=== PATIENT | male | born 1955 | race African-American/Black ===

== ENCOUNTER 2017-10-02 22:49 | Emergency (ER) | payer MEDICARE, MEDICAID ==
--- NOTE | 2017-10-03 02:14 | ED ---
Head Injury - HPI Summary HPI Summary: Patient complains of left eye swollen shut after fall onto left side face tonight. Patient admits to drinking two 22 ounce bottle of Old [place] malt liquor, does not remember fall very well. Currently alert and oriented, responding appropriately. Denies LANG, vision change, focal deficits, N/V, any other pain or injury. No anti-coag. - History Of Current Complaint Chief Complaint: EDHeadInjury Stated Complaint: FALL/HEAD INJURY Time Seen by Provider: 10/02/17 23:45 Hx Obtained From: Patient Mechanism Of Injury: Fall From A Standing Position Onset/Duration: Started Hours Ago Severity Currently: Mild Severity Initially: Mild Pain Intensity: 2 Pain Scale Used: 0-10 Numeric Location of Head Injury: Frontal Location: Discrete At: Character: Dull - Allergies/Home Medications Allergies/Adverse Reactions: Allergies Allergy/AdvReac Type Severity Reaction Status Date / Time No Known Allergies Allergy Verified 02/15/15 22:53 Home Medications: Home Medications NK [No Home Medications Reported] 10/03/17 [History Confirmed 10/03/17] PMH/Surg Hx/FS Hx/Imm Hx Endocrine/Hematology History: Denies: Hx Anticoagulant Therapy History: Denies: Hx Dialysis Neurological History: Denies: Hx CVA Infectious Disease History: No Infectious Disease History: Denies: Traveled Outside the [place] in Last 30 Days - Social History Alcohol Use: Daily Substance Use Type: Reports: None Hx Tobacco Use: Yes Smoking Status (MU): Heavy Every Day Tobacco Smoker Review of Systems Constitutional: Negative Eyes: Negative ENT: Negative Cardiovascular: Negative Respiratory: Negative Gastrointestinal: Negative Genitourinary: Negative Musculoskeletal: Negative Skin: Negative Neurological: Negative Psychological: Normal All Other Systems Reviewed And Are Negative: Yes Physical Exam - Summary Physical Exam Summary: Periorbital hematoma with left eye swollen shut. When eyelid retracted, EOMs are intact. Denies vision change. Neuro exam normal. Patient alert and oriented, clinically sober. No apparent trauma to mouth or head. Patient flexes and extends bilateral upper extremity is in bilateral lower extremities without any indication of pain. No pain with palpation of the chest or abdomen , back and neck. Triage Information Reviewed: Yes Vital Signs On Initial Exam: Initial Vitals Temp Pulse Resp BP Pulse Ox 99.4 F 82 16 163/98 95 10/02/17 22:50 10/02/17 22:50 10/02/17 22:50 10/02/17 22:50 10/02/17 22:50 Vital Signs Reviewed: Yes Appearance: Positive: Well-Appearing Skin: Positive: Warm Head/Face: Positive: Other Eyes: Positive: EOMI, JOSE ENT: Positive: Normal ENT inspection Neck: Positive: Supple Respiratory/Lung Sounds: Positive: Clear to Auscultation Cardiovascular: Positive: Normal Abdomen Description: Positive: Nontender Musculoskeletal: Positive: Normal Neurological: Positive: Normal Psychiatric: Positive: Normal AVPU Assessment: Alert - [place]z Coma Scale Best Eye Response: 4 - Spontaneous Best Motor Response: 6 - Obeys Commands Best Verbal Response: 5 - Oriented Coma Scale Total: 15 Diagnostics - Vital Signs Vital Signs Temp Pulse Resp BP Pulse Ox 10/02/17 22:50 99.4 F 82 16 163/98 95 - Laboratory Lab Statement: Any lab studies that have been ordered have been reviewed, and results considered in the medical decision making process. - CT brain CT Interpretation: No Acute Changes CT Interpretation Completed By: Radiologist maxillofacial CT Interpretation: No Acute Changes CT Interpretation Completed By: Radiologist Head Injury Course/Dx Course Of Treatment: Patient complains of left eye swollen shut after fall onto left side face tonight. Patient admits to drinking two 22 ounce bottle of Old [place] malt liquor, does not remember fall very well. Currently alert and oriented, responding appropriately. Denies LANG, vision change, focal deficits, N /V, any other pain or injury. No anti-coag. PE: Periorbital hematoma with left eye swollen shut. When eyelid retracted, EOMs are intact. Denies vision change. Neuro exam normal. Patient alert and oriented, clinically sober. No apparent trauma to mouth or head. Patient flexes and extends bilateral upper extremity is in bilateral lower extremities without any indication of pain. No pain with palpation of the chest or abdomen, back and neck. CT brain and maxillofacial negative. Vital signs within normal limits. Currently sober - Diagnoses Provider Diagnoses: Fall Discharge - Sign-Out/Discharge Documenting (check all that apply): Patient Departure - Discharge Plan Condition: Stable Disposition: HOME Patient Education Materials: Head Injury (ED), Fall Prevention (ED) Referrals: No Primary Care Phys,NOPCP [Primary Care Provider] - Additional Instructions: Return to the ED for any new or worsening symptoms - Billing Disposition and Condition Condition: STABLE Disposition: Home
[2017-10-03 02:33] VITALS: BP 146/86
--- NOTE | 2017-10-03 10:30 | RAD ---
Indication: Fall, head injury. CT of the brain was performed without IV contrast. Comparison is made with previous exam dated February 15, 2015. Ventricular structures are midline. No midline shift is noted. There is central and cortical atrophy noted. There is no evidence of intracranial mass or hemorrhage. No other high or low density lesions identified. Mastoid air cells and paranasal sinuses are otherwise unremarkable. Soft tissue swelling is noted over the left orbit with preseptal hematoma. IMPRESSION: No intracranial mass or hemorrhage is noted. Soft tissue hematoma over the left periorbital area and left frontal scalp.
--- NOTE | 2017-10-03 10:35 | RAD ---
Indication: Facial injury after fall, soft tissue swelling over the left frontal bone. CT of the facial bones was obtained in the axial plane. Sagittal and coronal reconstructed images were obtained. The mandible is intact. There is no evidence of fracture. The visualized hyoid bone, thyroid cartilage and cricoid cartilage is grossly unremarkable. The maxilla and nasal spine are intact with no fracture. Zygoma and zygomatic arch demonstrates no fracture. Lamina preparation and lateral wall of the orbits are unremarkable with no fracture. Frontal sinuses and frontal cortex are unremarkable without fracture. There is soft tissue swelling over the left for head extending to the left periorbital area. No intraconal hematoma is noted. The nasal arch is spine are otherwise unremarkable. Mucous retention cyst is noted in the left maxillary sinus. Multiple areas of missing teeth are noted. IMPRESSION: Marked soft tissue swelling over the left frontal area and left periorbital area. No fractures are identified.
== END 2017-10-03 02:31 | disposition home or self-care (01) ==
LOC: ED 22:49
DX: Z91.81 History of falling (principal); R22.0 Localized swelling, mass and lump, head; Z72.89 Other problems related to lifestyle; F17.210 Nicotine dependence, cigarettes, uncomplicated
CPT/HCPCS: 70450; 70486; 99282

== ENCOUNTER 2018-04-02 17:36 | Emergency (ER) | payer MEDICARE, MEDICAID ==
[2018-04-02] MEDS ORDERED: LORazepam INJ* 2 MG/ML 1 ML VIAL IV PUSH ONE (18:46)
[2018-04-02] MEDS ORDERED: Ondansetron INJ* 2 MG/ML VIAL IV ONE (18:46)
[2018-04-02] MEDS ORDERED: Morphine VIAL* 10 MG/ML 1 ML VIAL IV ONE (18:47)
--- NOTE | 2018-04-02 18:50 | ED ---
Abdominal Pain/Male - HPI Summary HPI Summary: A 63 y/o male brought in by [facility] ambulance presents to [facility] with a chief complaint of abdominal pain on 04/02/18. Per triage note, "Sudden onset abdominal pain and n/v x2 hours. Pt states he had one drink today. Pt has large , firm mass to groin area x several months causing a lot of pain today." Per EMS report that patient was "going to a friends house when he suddenly started to not feel well, abdominal pain, nausea. Pt can stand but leaning against police car". The patient states that he was on the way to get something to eat when he lost consciousness. The patient doesn't appear to be a good historian. He is known for EtOH use. He has several abrasions on his face from when he fell a few days ago, stating that he slipped on ice. He thinks he has a hernia and his right testicle is more swollen than his left. He denies fever, chills, erythema (eyes), sore throat, chest pain, shortness of breath, cough, dysuria, hematuria , myalgia, edema, rash and dizziness. At triage he rated his pain as an 10/10 in severity. - History of Current Complaint Chief Complaint: EDAbdPain Stated Complaint: ABD PAIN Time Seen by Provider: 04/02/18 18:34 Hx Obtained From: Patient, EMS Onset/Duration: Sudden Onset, Lasting Hours, Still Present Timing: Constant, Lasting Hours Severity Initially: Severe Severity Currently: Severe Pain Intensity: 10 Pain Scale Used: 0-10 Numeric Location: Diffuse Radiates: No Character: Not Applicable Aggravating Factor(s): Nothing Alleviating Factor(s): Nothing Associated Signs And Symptoms: Positive: Nausea, Vomiting, Other - possible hernia. Negative: Fever - Allergies/Home Medications Allergies/Adverse Reactions: Allergies Allergy/AdvReac Type Severity Reaction Status Date / Time No Known Allergies Allergy Verified 04/02/18 17:41 PMH/Surg Hx/FS Hx/Imm Hx Endocrine/Hematology History: Denies: Hx Anticoagulant Therapy Cardiovascular History: Reports: Hx Coronary Artery Disease, Hx Hypertension History: Denies: Hx Dialysis Neurological History: Denies: Hx CVA Infectious Disease History: No Infectious Disease History: Denies: Traveled Outside the [place] in Last 30 Days - Family History Known Family History: Negative: Cardiac Disease, Hypertension - Social History Alcohol Use: Daily Substance Use Type: Reports: None Hx Tobacco Use: Yes Smoking Status (MU): Heavy Every Day Tobacco Smoker Review of Systems Negative: Fever, Chills Negative: Erythema Negative: Sore Throat Negative: Chest Pain Negative: Shortness Of Breath, Cough Positive: Abdominal Pain, Vomiting, Nausea Positive: pain - testicle pain and swelling. Negative: dysuria, hematuria Negative: Myalgia, Edema Negative: Rash Neurological: Negative - dizziness, Other - Positive: patient reports that he lost consciousness All Other Systems Reviewed And Are Negative: Yes Physical Exam - Summary Physical Exam Summary: Constitutional: Well-developed, Well-nourished, Alert. (-) Distressed Skin: Warm, Dry HENT: Normocephalic; facial abrasions, nystagmus Eyes: Conjunctiva normal Neck: Musculoskeletal ROM normal neck. (-) JVD, (-) Stridor, (-) Tracheal deviation Cardio: Rhythm regular, rate normal, Heart sounds normal; Intact distal pulses; The pedal pulses are 2+ and symmetric. Radial pulses are 2+ and symmetric. (-) Murmur Pulmonary/Chest wall: Effort normal. (-) Respiratory distress, (-) Wheezes, (-) Rales Abd: Large tender yet soft right inguinal hernia, (-) epigastric tenderness, (- ) Distension, (-) Guarding, (-) Rebound Musculoskeletal: (-) Edema Lymph: (-) Cervical adenopathy Neuro: Alert, Oriented x3, speech somewhat slurred Psych: Mood and affect Normal Triage Information Reviewed: Yes Vital Signs On Initial Exam: Initial Vitals Temp Pulse Resp BP Pulse Ox 97.6 F 45 16 114/77 97 04/02/18 17:41 04/02/18 17:41 04/02/18 17:41 04/02/18 17:41 04/02/18 17:41 Vital Signs Reviewed: Yes - [place] Coma Scale Best Eye Response: 4 - Spontaneous Best Motor Response: 6 - Obeys Commands Best Verbal Response: 5 - Oriented Coma Scale Total: 15 Diagnostics - Vital Signs Vital Signs Temp Pulse Resp BP Pulse Ox 04/02/18 17:41 97.6 F 45 16 114/77 97 - Laboratory Result Diagrams: 04/02/18 19:16 04/02/18 19:16 Lab Statement: Any lab studies that have been ordered have been reviewed, and results considered in the medical decision making process. - CT Brain CT Interpretation Completed By: Radiologist Summary of CT Findings: No acute intracranial pathology. ED physician has reviewed this imaging report. Cervical spine CT Interpretation Completed By: Radiologist Summary of CT Findings: No acute cervical spine fracture. ED physician has reviewed this imaging report. - EKG 17:57 Cardiac Rate: Bradycardia - 43 bpm EKG Rhythm: Sinus Bradycardia Summary of EKG Findings: Sinus bradycardia at 43 bpm. No STEMI. Re-Evaluation - Re-Evaluation First Eval Re-Evaluation Time: 20:45 Change: Improved Comment: Pain reduced to 4/10. Hernia reduced somewhat. Given an icepack and put in an elevated position. Second Eval Re-Evaluation Time: 21:35 Change: Improved Comment: Hernia reduced. patient feels better. asking to drink water. Abdominal Pain Fem Course/Dx - Course Course Of Treatment: A 63 y/o male brought in by [facility] ambulance presents to [facility] with a chief complaint of abdominal pain on 04/02/18. The physical exam revealed facial abrasions, speech somewhat slurred, nystagmus, large tender yet soft right inguinal hernia. EKG at 17:57 revealed sinus bradycardia at [address] was negative. Cervical spine CT was negative for fracture. Lab results obtained. Lactic acid of 4.4 and Serum Alcohol of 179 at 19:16. In the ED course the patient was given Zofran IV, Ativan IV and Morphine IV. Upon re-eval Hernia reduced. patient feels better. asking to drink water. Vomiting and AMS likely related to alcohol intoxication. The patient will be discharged. He is agreable with this plan. - Diagnoses Provider Diagnoses: Alcohol dependence, Alcohol intoxication, Right inguinal hernia Discharge - Sign-Out/Discharge Documenting (check all that apply): Patient Departure - DC Patient Received Moderate/Deep Sedation with Procedure: No - Discharge Plan Condition: Stable Disposition: HOME Referrals: Brando Fields MD [Medical Doctor] - (3-5 days) [facility] [Outside] (3-5 days) Additional Instructions: Return to the ED if you experience any new or worsening symptoms. - Attestation Statements Document Initiated by Scribe: Yes Documenting Scribe: Ehsan Medrano Provider For Whom Scribe is Documenting (Include Credential): Khadar Crump MD Scribe Attestation: Ehsan Mckee, scribed for Khadar Crump MD on 04/02/18 at 2153. Status of Scribe Document: Ready
[2018-04-02 19:33] LABS: Hematocrit 42 % (42-52); Mean Corpuscular HGB Conc 34 g/dl (31-36); Mean Corpuscular Hemoglobin 35 pg (27-31); Mean Corpuscular Volume 103 fL (80-94); Red Blood Count 4.06 10^6/ul (4.00-5.40); Red Cell Distribution Width 15 % (10.5-15); White Blood Count 6.7 10^3/ul (3.5-10.8)
[2018-04-02 19:36] LABS: Activated Partial Thrombo Time 27.5 seconds (26.0-36.3); INR 0.94 (0.77-1.02)
[2018-04-02 19:44] LABS: Albumin 3.9 g/dL (3.2-5.2); BUN/Creatinine Ratio 8.4 (8-20); Calcium 10.2 mg/dL (8.6-10.3); EGFR Non-African American 94.2 (>60); Globulin 3.9 g/dL (2-4); Potassium 3.8 mmol/L (3.5-5.0); Total Bilirubin 0.5 mg/dL (0.2-1.0); Total Protein 7.8 g/dL (6.4-8.9)
[2018-04-02 19:57] LABS: ABS Basophils 0.1 10^3/ul (0-0.2); ABS Eosinophils 0 10^3/ul (0-0.6); ABS Lymphocytes 0.6 10^3/ul (1.0-4.8); ABS Monocytes 0.6 10^3/ul (0-0.8); ABS Neutrophils 5.5 10^3/ul (1.5-7.7); ABS Nucleated RBC 0 10^3/ul; Eosinophil % 0.3 %; Lymphocyte % 9.4 %; Nucleated Red Blood Cells % 0.3; Platelet Count 201 10^3/ul (150-450)
[2018-04-02] MEDS ORDERED: NS 0.9% 1000 ML** 1,000 ML IV ONE (20:21)
[2018-04-03 00:15] VITALS: BP 148/80
== END 2018-04-03 | disposition home or self-care (01) ==
LOC: ED 17:36
DX: F10.229 Alcohol dependence with intoxication, unspecified (principal); K40.90 Unilateral inguinal hernia, without obstruction or gangrene, not specified as recurrent; R00.1 Bradycardia, unspecified; R11.2 Nausea with vomiting, unspecified; S00.81XA Abrasion of other part of head, initial encounter; W00.0XXA Fall on same level due to ice and snow, initial encounter; Y92.9 Unspecified place or not applicable; F17.200 Nicotine dependence, unspecified, uncomplicated
CPT/HCPCS: 36415; 70450; 72125; 80053; 80320; 83605; 84484; 85025; 85610; 85730; 87040; 93005; 96374; 96375; 99284; G0480; J2060; J2270; J2405

== ENCOUNTER 2019-03-31 18:25 | Inpatient (IN) | payer MEDICARE, MEDICAID ==
--- OUTSIDE RECORDS SUMMARY | 2019-03-31 18:45 | XMS REPORT | Summary of Care ---
:1955 Author Organization [facility] Address [address] [place] [id number] Care Team Providers Name Role Phone Pcp, No Primary Care Provider Unavailable Reason for Referral Diagnostic Radiology (Routine) Status Reason Specialty Diagnoses / Procedures Referred By Contact Referred To Contact Open Radiology Diagnoses Subdural hematoma SAH (subarachnoid hemorrhage) Samym Valerio Procedures CT Head without Contrast MD Britt [address] [facility] Room [address] [place] [id number] Email: [email or web address] Reason for Visit Reason Comments Head Injury Auth/Cert Status Reason Specialty Diagnoses / Procedures Referred By Contact Referred To Contact Diagnoses Subdural hematoma s/p intoxicated; traumatic frontal lobe head bleed with no visible shift, No offical reads. No complete trauma work up. Subdural hematoma Encounter Details Date Type Department Care Team Description 02/01/2019 - Hospital Encounter 08E SURGICAL ICU Anant Nichole MD [address] [place] [address] [phone] Subdural hematoma (Primary Dx); 02/04/2019 [address] [facility] Zev See MD [address] [place] [address] [phone] Diagnosis unknown; [place], [place] Regi Tamez MD [address] [facility] [address] [place] [address] [phone] SAH (subarachnoid hemorrhage) [id number] Allergies No Known Allergiesdocumented as of this encounter (statuses as of 02/04/2019) Medications Medication Sig Dispensed Refills Start Date End Date Status Acetaminophen 325 MG Take 2 tablets 30 tablet 0 02/04/2019 02/14/2019 Active Oral Tablet by mouth every 6 (six) hours for 10 days amLODIPine Besylate 10 Take 1 tablet by 30 tablet 11 02/05/20192019 Active MG Oral Tablet mouth daily (NORVASC) Folic Acid 1 MG Oral Take 1 tablet by 30 tablet 11 02/05/2019 02/04/2020 Active Tablet (FOLVITE) mouth daily Tab-A-Ryan/Beta Take 1 tablet by 30 tablet 0 02/05/2019 Active Carotene Oral Tablet mouth daily Thiamine HCl 100 MG Take 1 tablet by 30 tablet 11 02/05/2019 02/04/2020 Active Oral Tablet (B-1) mouth daily documented as of this encounter (statuses as of 02/04/2019) Active Problems Problem Noted Date Subdural hematoma 02/02/2019 Fall 02/02/2019 Overview: Fall secondary to acute alcohol intoxication 0.33 Acute pain due to trauma 02/02/2019 Alcohol intoxication 02/02/2019 Overview: 0.33 LIDIA Contusion 02/02/2019 Overview: Frontal hemorrhagic unknown LOC SAH (subarachnoid hemorrhage) 02/02/2019 Overview: Stable,traumatic History of colonic diverticulitis 02/02/2019 Unilateral inguinal hernia 02/02/2019 Overview: Right containing small bowel loop Lesion of liver 02/02/2019 Overview: Lesion anterior aspect of the left hepatic lobe 2.4 x 2.2 cm arterially enhancing OA (osteoarthritis of spine) 02/02/2019 Rib fracture 02/02/2019 Overview: Chronic, right 10th posterior rib Hepatic steatosis 02/02/2019 Atelectasis, bilateral 02/02/2019 Hemivertebra 02/02/2019 Overview: T10 documented as of this encounter (statuses as of 02/04/2019) Social History Tobacco Use Types Packs/Day Years Used Date Unknown If Ever Smoked 0 Alcohol Use Drinks/Week oz/Week Comments Yes unknown amount Sex Assigned at Date Recorded Not on file Job Start Date Occupation Industry Not on file Not on file Not on file Travel History Travel Start Travel End No recent travel history available. documented as of this encounter Last Filed Vital Signs Vital Sign Reading Time Taken Comments Blood Pressure 156/82 02/04/2019 12:24 PM EST Pulse 58 02/04/2019 1:00 PM EST Temperature 36.8 02/04/2019 12:00 PM EST C (98.3 F) Respiratory Rate 19 02/04/2019 1:00 PM EST Oxygen Saturation 98% 02/04/2019 1:00 PM EST Inhaled Oxygen Concentration - - Weight 68 kg (149 lb 14.6 oz) 02/03/2019 6:00 AM EST Height 165.1 cm (5' 5") 02/02/2019 6:55 AM EST Body Mass Index 24.95 02/02/2019 6:55 AM EST documented in this encounter Discharge Summaries Surya Wang MD - 02/04/2019 12:35 PM EST Discharge Summary Patient Jose Martin Guzman Admit Date 02/01/2019 1955 Discharge Date 02/04/[address] Wong Primary Discharge Diagnosis: Fall Secondary Discharge Diagnosis: Fall Subdural hematoma Acute pain due to trauma Alcohol intoxication Contusion SAH (subarachnoid hemorrhage) History of colonic diverticulitis Unilateral inguinal hernia Lesion of liver OA (osteoarthritis of spine) Rib fracture Hepatic steatosis Atelectasis, bilateral Hemivertebra History & Hospital Course Reason for Admission: Fall Brief history and Hospital Course: 64 year old male who presented to [facility] as a level 2 Trauma activation as a transfer from a OSH following an unwitnessed fall in an intoxicated condition, with OSH imaging significant for subdural and subarachnoid hemorrhage. Tetanus vaccine had been provided at the outside facility. The patient had a GCS of 15 on arrival with patent and non-endangered airway, in hemodynamically stable condition. Secondary survey revealed a posterior scalp laceration, edema over the anterior chin with tenderness on palpation and multiple mission teeth. CT Head that was performed upon arrival to [facility] revealed an interval increase of the left frontal hemorrhagic contusion, and an unchanged left frontal subarachnoid and subdural hemorrhage as well as a right frontal hemorrhagic contusion. Further imaging revealed no spinal fractures or acute intraabdominal or intrathoracic injury, was however significant for colonic diverticulosis without radiologic evidence of acute diverticulitis,a right inguinal hernia containing a small bowel loop containing fecal material, and a 2.4x2.2 cm arterially enhancing lesion in the anterior aspect of the left liver. A head CT scan later on 02/02 showed to intracranial hemorrhages to be stable. Neurosurgical consult service recommended no operativeintervention and conservative management with supportive measures. The patient recovered well and was increasingly active tolerating an oral diet well, was however found to have episodes of severe hypertension up to systolic 180s, warranting an order of PRN hydralazine that lowered his systolics until the 140s. Upon discharge, we started the patient on amlodipine 10 mg by mouth daily for blood pressure control. He remained asymptomatic throughout the hypertensive episodes. He also has had intermittent bradycardia, which Cardiology was consulted for. Workup including an EKG and echocardiogram were significant for left axis deviation and mild concentric left ventricular hypertrophy, but no acute changes were observed. The patient did admit excessive alcohol use, which social work has been involved , encouraging the patient to stop drinking and providing him with additional resources. As the patient has recovered well from his fall and there is no role for surgical intervention at this point, we discharge him home today with instructions to follow up on outpatient basis for his intracranial bleed. The patient was also instructed to establish care with a primary care provider including outpatient follow up for his inguinal hernia. Review of systems: Denies nausea, vomiting, abdominal pain, chest pain, shortness of breath. Physical exam: General: NAD, A&Ox3. CV:RRR Pulm: symmetric chest excursion Abdominal: soft, non-tender, non-distended in all four quadrants. There is a sizable, yet reducible right inguinal hernia present that does not show any clinical signs of incarceration. MSK: Extremities warm, well perfused. Consults: Neurosurgery Relevant studies done during this hospitalization include: CT head Laboratory Data (Most Recent in Past 3 Days) Lab 02/02/19 0527 02/03/19 0403 02/04/19 0525 WBC 4.6 5.6 4.9 HGB 12.8* 11.4* 11.1* MCV 93.2 91.6 91.6 PLT 239 237 207 Lab 02/01/19 2328 PROT 7.7 ALBUMIN 3.9 AST 25 ALT 10 TBILI 0.2 ALKPHOS 71 Lab 02/02/19 0527 02/03/19 0403 02/04/19 0525 NA 141 136 137 K 3.5 4.0 3.5 CL 106 104 105 BICARBONATE 19* 22 21* GLUCOSE 71 100 108 BUN 3* 7* 8 CREATININE 0.56* 0.76 0.69* Lab 02/01/19 2328 INR 0.97 Discharge Medications Discharge Medications: Medication List Discharge Medications Sig/Dispense acetaminophen (TYLENOL) tablet 325 MG tablet Si mg, Oral, Every 6 hours Dispense: 30 tablet amlodipine 10 MG tablet Commonly known as: NORVASC Start taking on: February 05, 2019 Si mg, Oral, Daily Standard Dispense: 30 tablet folic acid 1 MG tablet Commonly known as: FOLVITE Start taking on: February 05, 2019 Si mg, Oral, Daily Standard Dispense: 30 tablet multivitamin tablet Start taking on: February 05, 2019 Si tablet, Oral, Daily Standard Dispense: 30 tablet thiamine 100 MG tablet Commonly known as: B-1 Start taking on: February 05, 2019 Si mg, Oral, Daily Standard Dispense: 30 tablet Allergies:Patient has no known allergies. Medications Discontinued: None Medications Added or Modified: Amlodipine Medications, including new medication and medication changes, were discussed with patient and/or family prior to discharge. Follow Up Appointments & Patient Instructions F/u with NSGY Discharge planning was discussed with the patient and/or family. Please see discharge instructions provided to the patient OR After-Visit summary on file for additional information. Discharge Recommendations & Disposition Communication/Instructions to the PCP: No Pending labs/ tests done in hospital and still need to be followed up after discharge: None Follow-up with PCP: To be scheduled by patient Referrals: None Disposition: The patient was hemodynamically stable at the time of discharge. Discharge to: Home Diet: regular diet Activity: activity as tolerated Code Status: Full Code Condition Upon Discharge: Cognitive: Alert and oriented Functional: Independent Social Supports: Family in home The patient was discussed with Dr. Wong, who agrees with the assessment and plan as noted above. Signature:Surya Wang MD Date/Time: February 04, 2019 12:35 PM Associated attestation - Mami Wong MD - 02/04/2019 1:36 PM DESIREE saw and evaluated the patient. Discussed with the resident and agree with the residents findings and plans as written, along with any supplemental dictated and/or attending documentation in the patient record by myself. Mental status continues to improve. Started on amlodipine for HTN. Stable for discharge today. F/U with PCP in the next 1-2 weeks regarding BP control. F/U with NSG in 1 month. Mami Wong MD Trauma and Acute Care Surgery documented in this encounter Progress Notes Carol Ann Kaur RN - 02/04/2019 1:36 PM [id number]: Discharge teaching gone over with patient. Patient has no questions or concerns. IV taken out and patient discharged to discharge center. Regi Newton, OT - 02/04/2019 9:54 AM ESTOccupational Therapy Acute Care Treatment Note Medical Diagnosis: s/p fall on 02/01/19 L frontal SDH and SAH Left frontal hemorrhagic contusion Small hemorrhagic contusion along anterior right frontal lobe +Et OH (0.33) Symptomatic sinus bradycardia with hypotension Prolonged QTC Blurry vision Dizziness Rehabilitation Precautions/Restrictions: Full code High fall risk I-COUGH Protocol OOB ad angelito OOB to chair Per Trauma progress note dated 02/03/19: "Keep SBP 100-140" Goal Review Visit Number: 1 SUBJECTIVE Patient Report: "Hi, Miss" Pain: Patient has no complaints of pain currently. Pain Medication Today: no. OBJECTIVE General Observation: Pt received seated at edge bed in NAD +PIV, +tele, +pulse oximetry. No bed alarm noted at start of session. Vital Signs: BP at rest: 139/84 mmHg Range of Motion:No change observed. Strength:No change observed. Skin Integrity Screen: PIV RUE. Posterior scalp laceration with shani open to air. otherwise visable skin grossly intact Self Care/Home Management: Grooming: Complete [place]. Eating: Complete [place]. Dressing - lower body: Modified [place]. Toilet transfer: Complete [place]. Simulated task . Task: Functional mobility Provided: Independent without use of an assistive device, . Toileting: Complete [place]. Task: Sit to/from stand transfers Provided: [place] . Splinting: No splint issued today. Cognitive Test Score: Not tested. Outcome Measures: [facility] AM-PAC "6 Clicks" Daily Activity Inpatient Short Form: Putting on and taking off regular lower body clothing: No assistance (4) Bathing (including washing, rinsing, and drying): No assistance (4) Toileting (including use of toilet, bedpan, or urinal): No assistance (4) Putting on and taking off regular upper body clothing: No assistance (4) Taking care of personal grooming such as brushing teeth: No assistance (4) Eating meals: No assistance (4) Raw Score: 24 /24 Interventions: Self Care/Home Management: Facilitated completion of self-care tasks and functional mobility with increased independence and safety by providing education. OT instructed on role of OT in acute care, plan of care, and current goals, pt agreeable to OT. Engaged pt in lower body dressing tasks by providing education on safety. Pt completed simulated toilet transfers and toileting tasks in standing with independence. Facilitated completion of sit to/from stand transfers and functional mobility with independence by providing education on safety and importance of activity. Discussed fall prevention techniques extensively. Educated patient on role of OT in concussion management. Provided concussion brochure and discussed possible symptoms from concussion and benefit of seeking therapy to aid in management after discharge. Provided education on discharge planning and discharge recommendations. Education: Mode of education provided: Explanation. Printed material provided. Audience: Patient. Education Provided: Role of OT, plan of care, d/c planning, discharge recommendations, safety, fall prevention techniques, importance of activity, concussion education . Response: Verbalized understanding. ASSESSMENT Response to Visit: The session was tolerated well. Pt left seated at edge of bed in NAD all lines and tubes intact. Nursing and medical team notified of patient's performance. Call candelaria was in patient's reach at end of session. Pain: Patient has no complaints of pain currently. Goal review: Short Term Goals: 1. Pt will complete toileting tasks with modified independence within 1 week. Status: GOAL MET 2. Pt will complete grooming tasks in standing at the sink with modified independence within 1 week Status: GOAL MET [employer] Strategist Goals: 1. Pt will complete toilet transfers with modified independence within 2 weeks Status: GOAL MET. Simulated task. 2. Pt will complete lower body dressing tasks with modified independence within 2 weeks Status: GOAL MET PLAN Treatment Frequency, Duration and Interventions: The patient has been discharged from Occupational Therapy services secondary to: No need for skilled therapy intervention at this time. Goals have been MET. Equipment Provided: None issued this visit. Concussion Management Packet. Equipment Recommended: None. Recommended Occupational Therapy Follow Up: Upon acute care discharge, the following is currently recommended: No OT needs. Recommend discharge home Recommended Consults: None currently. Development of Plan of Care: Participants included: Patient. Nurse. Sample Book Maker. Medical provider. Social work . Visit Number: Today's visit is number 2 Program: Trauma (Therapist may be reached on [employer]) SESSION: Duration: 24 CHARGES: [id number] - CHARGE - OT SELF CARE ADL TRAIN-15 MIN 2 Units - ORDER - Occupational Therapy Treatment 1 Units - TRAUMA VISIT 1 Units Total treatment minutes: 24.00 Minutes Electronically Signed by: JO ANN Rees, 02/04/2019 12:45:10 PM Regi Newton OT - 02/04/2019 8:22 AM ESTOccupational Therapy Acute Care Missed Visit Note Location: Bedside. Attempted to visit patient for therapy, but was unable for the following reasons: pt not appropriate for therapy at this time. Pt's blood pressure (179/84 mmHg) outside Neurosurgery recommended parameters of SBP between 100-140. Will continue to follow as appropriate and reattempt when BP is controlled. (Therapist may be reached on Voc[employer]) SESSION: Duration: 0 CHARGES: Total treatment minutes: Minutes Electronically Signed by: JO ANN Rees, 02/04/2019 8:37:24 AM Canelo Vasquez RN - 02/03/2019 6:29 PM [id number] having increased BP of 179/83. Dr. Surya Wang MD notified. Hydralazine IV given early. Recheck blood pressure 151/92. Patient has a headache 08/09. Given tylenol. made aware. Continue to monitor at this time. Aleja Colon LMSW - 4:39 PM ESTSocial Work Note: SW attempted to meet with patient, however he stated that he was tired and requested that SW return at a later time. Aleja Martin [facility] Canelo Vasquez RN - 02/03/2019 12:34 PM ESTPatients blood pressure 185/ 103 with a heart rate of 80. Patient given hydralazine IV. When patient sits on the side of bed his heart rate increases to 140's. Dr. Surya Wang notified. No further intervention at this time. Continue to monitor. Regi Newton OT - 02/03/2019 10:52 AM ESTOccupational Therapy Acute Care Missed Visit Note Location: Bedside. Attempted to visit patient for therapy, but was unable for the following reasons: Treatment not completed secondary to scheduling conflict. Pt meeting with spiritual care at bedside at this time. Will continue to follow as appropriate and reattempt as time allows. (Therapist may be reached on Vocera) SESSION: Duration: 0 CHARGES: - CHARGE-IP OT SCHEDULING CONFLICT 1 Units Total treatment minutes: 0.00 Minutes Electronically Signed by: CHER Rees/Ania, 02/03/2019 10:53:35 AM Larissa Covarrubias MD - 02/03/2019 10:23 AM EST Surgery Progress Note Hospital Day #: 1 Interval Present History: No overnight events. Seen and evaluated at bedside. No acute complaints today. Denies headaches, chest pain, nausea, and emesis. Vital Signs: Temp (24hrs), Av.1 C, Min:36.4 C, Max:37.6 C Visit Vitals BP 141/76 (BP Location: Left arm, Patient Position: Lying) Pulse 67 Temp 37.2 C (Oral) Resp 16 Ht 1.651 m Wt 68 kg (149 lb 14.6 oz) SpO2 94% BMI 24.95 kg/m Intake/Output last 3 shifts: I/O last 3 completed shifts: In: 1100 [I.V.:1100] Out: 850 [Urine:850] Diet: Diet Age: Adult; Diet: Regular Physical Exam Gen: NAD, AAOx3 Nose: Anterior nares clear Mouth: oral mucosa moist CVS: Regular rate on the monitor Resp: Normal work of breathing GI: Soft, non-distended, non-tender Ext: warm, well perfused Data Reviewed: BMP: Lab Results Component Value Date NA 136 02/03/2019 K 4.0 02/03/2019 CL 104 02/03/2019 BICARBONATE 22 02/03/2019 GLUCOSE 100 02/03/2019 BUN 7 (L) 02/03/2019 CREATININE 0.76 02/03/2019 BCR 9 02/03/2019 GFRAA >90 02/03/2019 GFRNONAA >90 02/03/2019 Lytes: Lab Results Component Value Date CALCIUM 9.8 02/03/2019 MG 1.9 02/02/2019 PHOS 3.3 02/02/2019 CBC: Lab Results Component Value Date WBC 5.6 02/03/2019 RBC 3.79 (L) 02/03/2019 HGB 11.4 (L) 02/03/2019 HCT 34.7 (L) 02/03/2019 PLT 237 02/03/2019 Coagulation: Lab Results Component Value Date INR 0.97 02/01/[address] H 02/02/19: IMPRESSION: 1. Stable and bilateral frontal hemorrhagic contusion and subarachnoid hemorrhage. 2. No evidence of new intracranial hemorrhage or extra-axial fluid collection. Assessment: Principal Problem: Fall Active Problems: Subdural hematoma Acute pain due to trauma Alcohol intoxication Contusion SAH (subarachnoid hemorrhage) History of colonic diverticulitis Unilateral inguinal hernia Lesion of liver OA (osteoarthritis of spine) Rib fracture Hepatic steatosis Atelectasis, bilateral Hemivertebra Jose Martin Guzman is a 64 y.o. male with a history of ETOH who fell sustaining a SAH and bilateral frontal lobe contusions. CTH yesterday at noon was stable for worsening bleeding. Doing well today. Tolerating his diet. Denies chest pain , shortness of breath, and difficulty breathing. Plan: # SAH, frontal lobe contusions - NSG recommendations appreciated - Keep SBP 100-140 - Platelets >100K, INR <1.4 # Bradycardia - Cardiology consulted - ECHO done - Repeat EKG today for prolonged QTC # Miscellaneous - Regular diet - DVT ppx to start today at 1200 - Pain control with tylenol and oxycodone - ICOUGH - Bowel regiment - Disposition: Acute status today Larissa Guerra MD Pager: [phone] Associated attestation - Mami Wong MD - 02/03/2019 12:10 PM DESIREE saw and evaluated the patient. Discussed with the resident and agree with the residents findings and plans as written, along with any supplemental dictated and/or attending documentation in the patient record by myself. Mental status improved today. No more episodes of bradycardia, a little tachy this am (HR 100s). Will repear EKG to assess Qtc. Stable for transfer to floor on tele. Mami Wong MD Trauma and Acute Care Surgery Bob Hurley RN - 02/02/2019 9:42 PM ESTIf wound was present on admission , this documentation was sent to attending provider for cosignature. Sammy Price MD - 02/02/2019 8:24 PM [facility] Progress Note: Patient seen and re-examined. Neurologic exam nonfocal. Most recent repeat CTH stable compared to previous imaging. No neurosurgical intervention indicated, neurosurgery will sign off. Patient may follow up in clinic in 1 month with repeat CTH. Please call with questions or concerns. Sammy Valerio 198:25 PM Neurosurgery Resident, PGY-1 Mami Kim MD - 02/02/2019 11:24 AM EST Subjective: Patient is a 64 y.o. male Hospital Day: 2, Head CT this AM with interval worsening. Neuro intact. Has a headache but no other neuro symptoms. While sleeping today he had an episode of symptomatic bradycardia with hypotension. HR in the 30s and SBP in 80s. C/o blurry vision and dizziness. No chest pain/ shortness of breath. Objective: Temp (24hrs), Av.9 C, Min:36.7 C, Max:37.1 C Vitals: 02/02/19 0800 02/02/19 0845 02/02/19 1000 02/02/19 1015 BP: (!) 176/95 135/89 80/47 107/64 BP Location: Left arm Patient Position: Lying Pulse: 65 67 69 (!) 59 Resp: 16 17 Temp: 37.1 C TempSrc: Oral SpO2: 97% 95% Weight: Height: I/O last 3 completed shifts: In: 1000 [IV Piggyback:1000] Out: - I/O this shift: In: - Out: 200 [Urine:200] Recent Results (from the past 24 hour(s)) CBC and Differential Collection Time: 02/01/19 11:28 PM Result Value Ref Range White Blood Cell 4.4 4 - 10 10*3/uL Red Blood Cell 4.59 (L) 4.6 - 6.1 10*6/uL Hemoglobin 13.9 13.5 - 18 g/dL Hematocrit 42.3 41 - 53 % Mean Cell Volume 92.1 80 - 96 fL Mean Cell Hemoglobin 30.2 27 - 33 pg Mean Cell Hgb Conc 32.8 32.0 - 36.0 g/dL Red Cell Dist Width 16.7 (H) 11.5 - 14.5 % Platelet Count 251 150 - 400 10*3/uL Differential Type Automated Diff Neutrophil 54 % Lymphocyte 31 % Monocyte 8 % Eosinophil 4 % Basophil 3 % Abs Neutrophil 2.30 1.8 - 7.0 10*3/uL Abs Lymphocyte 1.29 1.2 - 4.0 10*3/uL Abs Monocyte 0.32 0 - 0.8 10*3/uL Abs Eosinophil 0.18 0 - 0.5 10*3/uL Abs Basophil 0.12 0 - 0.2 10*3/uL Nucleated Red Blood Cells 0 0 - 0 /100 Comprehensive Metabolic Panel Collection Time: 02/01/19 11:28 PM Result Value Ref Range Albumin 3.9 3.5 - 5.2 g/dL Bilirubin, Total 0.2 <1.2 mg/dL Calcium 9.6 8.8 - 10.2 mg/dL Chloride 105 98 - 107 mmol/L Creatinine 0.63 (L) 0.70 - 1.20 mg/dL Glucose 81 70 - 140 mg/dL Alkaline Phosphatase 71 40 - 129 U/L Potassium 3.7 3.4 - 5.1 mmol/L Total Protein 7.7 6.4 - 8.3 g/dL Sodium 141 136 - 145 mmol/L AST/SGO 25 <40 U/L Blood Urea Nitrogen 4 (L) 8 - 23 mg/dL Osmolality, Dharmesh 288 275 - 300 mosm/kg BUN/Cre Ratio 6 Bicarbonate 23 22 - 29 mmol/L ALT/SGP 10 <41 U/L Anion Gap 13 8 - 15 mmol/L A/G Ratio 1.0 GFR Non 2008 CDK-EPI >90 >60 mL/min/1.73m2 GFR 2008 CKD-EPI >90 >60 mL/min/1.73m2 Ethyl Alcohol Level Collection Time: 02/01/19 11:28 PM Result Value Ref Range Ethyl Alcohol 0.33 (A) Negative g/dl Partial Thromboplastin Time (PTT) Collection Time: 02/01/19 11:28 PM Result Value Ref Range PTT Patient (PAT) 31.2 24.0 - 34.0 s Lipase Level Collection Time: 02/01/19 11:28 PM Result Value Ref Range Lipase 66 (H) 13 - 60 U/L Protime-INR Collection Time: 02/01/19 11:28 PM Result Value Ref Range PT Patient 13.2 12.5 - 14.9 s Int'l Normalized Ratio 0.97 POCT i-STAT Chem 8 Collection Time: 02/01/19 11:33 PM Result Value Ref Range i-STAT Sodium 143 136 - 145 mmol/L i-STAT Potassium 4.2 3.4 - 5.1 mmol/L i-STAT Chloride 106 98 - 107 mmol/L i-STAT TCO2 27 22 - 29 mmol/L i-STAT Ionized Calcium 1.29 1.13 - 1.32 mmol/L i-STAT Glucose 79 70 - 140 mg/dL i-STAT BUN <3 (L) 8 - 23 mg/dL i-STAT Creatinine 1.1 0.70 - 1.20 mg/dL i-STAT Hematocrit 40 (L) 41 - 53 % i-STAT Hemoglobin 13.6 13.5 - 18.0 g/dL POCT i-STAT VBG Lactic Acid Collection Time: 02/01/19 11:41 PM Result Value Ref Range i-STAT Venous pH 7.37 7.36 - 7.41 i-STAT Venous PCO2 50 (H) 40 - 45 mmHg i-STAT Venous PO2 32 mmHg i-STAT Venous Base Excess 2 mmol/L i-STAT Venous SO2 58 (L) 60 - 85 % i-STAT Venous Lactic Acid 2.9 (H) 0.5 - 2.2 mmol/L i-STAT Venous Total CO2 30 mmol/L POCT i-STAT Troponin Collection Time: 02/02/19 12:01 AM Result Value Ref Range i-STAT Troponin I 0.00 0.00 - 0.08 ng/mL Drugs Of Abuse, Urine Collection Time: 02/02/19 12:12 AM Result Value Ref Range Amphetamine Negative Negative Cutoff 1000 Benzodiazepine Negative Negative Cutoff 300 Cannabinoids Urine Negative Negative Cutoff 50 Cocaine Negative Negative Cutoff 300 Methadone (Dolophine) Negative Negative Cutoff 300 Opiates Negative Negative Cutoff 300 Oxycodone Negative Negative Cutoff 100 Fentanyl Negative Negative Cutoff 1 Drug Interpretation (NOTE) Urinalysis with microscopic Collection Time: 02/02/19 12:12 AM Result Value Ref Range Color Colorless Clarity Clear Specific [place] 1.009 1.003 - 1.030 PH Urine 5.0 5.0 - 8.0 Total Protein UA Negative Negative mg/dL Glucose UA Negative Negative mg/dL Ketone Urine Negative Negative mg/dL Bilirubin Negative Negative Hemoglobin, Urine Negative Negative Leukocyte Esterase Negative Negative Tai/uL Nitrite Negative Negative WBC 0 0 - 5 /HPF RBC 0 0 - 3 /HPF Basic Metabolic Panel Collection Time: 02/02/19 5:27 AM Result Value Ref Range Bicarbonate 19 (L) 22 - 29 mmol/L Chloride 106 98 - 107 mmol/L Creatinine 0.56 (L) 0.70 - 1.20 mg/dL Glucose 71 70 - 140 mg/dL Potassium 3.5 3.4 - 5.1 mmol/L Sodium 141 136 - 145 mmol/L Blood Urea Nitrogen 3 (L) 8 - 23 mg/dL Anion Gap 16 (H) 8 - 15 mmol/L Osmolality, Dharmesh 287 275 - 300 mosm/kg BUN/Cre Ratio 6 Calcium 9.2 8.8 - 10.2 mg/dL GFR Non 2008 CDK-EPI >90 >60 mL/min/1.73m2 GFR 2008 CKD-EPI >90 >60 mL/min/1.73m2 CBC Collection Time: 02/02/19 5:27 AM Result Value Ref Range White Blood Cell 4.6 4 - 10 10*3/uL Red Blood Cell 4.32 (L) 4.6 - 6.1 10*6/uL Hemoglobin 12.8 (L) 13.5 - 18 g/dL Hematocrit 40.2 (L) 41 - 53 % Mean Cell Volume 93.2 80 - 96 fL Mean Cell Hemoglobin 29.6 27 - 33 pg Mean Cell Hgb Conc 31.8 (L) 32.0 - 36.0 g/dL Red Cell Dist Width 16.8 (H) 11.5 - 14.5 % Platelet Count 239 150 - 400 10*3/uL Gen: AAOx3, NAD Heart: bradycardic, regular rhythm Lungs: breathing comfortably Abd: Soft/ND/ non tender Neuro: Face symmetric, tongue midline. Weak in all 4 extremities but strength equal and symmetric. A/P: 64 y.o. male, with Hx of EtOH abuse s/p fall with left SDH and SAH Hospital Day: 2, EKG obtained during bradycardic episode reveals sinus eamon with prolonged Qtc. Symptoms and BP improved with 1L NS bolus. Bradycardia spontaneously resolved after about 10 min. Back to baseline with HR 60. ECHO and cards consult ordered. Will get repeat head CT a little early to assess for change. Mami Wong MD Trauma and Acute Care Surgery [place] Price RRT - 02/01/2019 11:13 PM ESTTherapist called for ED for Level 2 Trauma. Therapist spent 20 minutes providing therapy while in Emergency Department. documented in this encounter Plan of Treatment Name Type Priority Associated Order Schedule Diagnoses Oxygen Orders: Nasal Respiratory Care Routine Continuous for 30 Cannula; Liters per days for 30 Days minute: 2 LPM; D/C starting 02/02/2019 Oxygen 48hrs After until 03/03/2019 Being on Room Air: Yes Weaning Parameters Respiratory Care Routine Once for 1 Occurrences starting 02/02/2019 until 02/02/2019 Basic Metabolic Lab Routine AM Draw for 5 Days Panel starting 02/02/2019 until 02/06/2019, 3 completed CBC Lab Routine Daily for 5 Days starting 02/02/2019 until 02/05/2019, [address] Head without Imaging STAT STAT for 1 Contrast Occurrences starting 02/02/2019 until 02/02/2019 CT Head without Imaging Routine Subdural hematoma Expected: Contrast SAH (subarachnoid 02/02/2019, Expires: hemorrhage) 05/03/2020 documented as of this encounter Procedures Procedure Name Priority Date/Time Associated Comments Diagnosis CBC Routine 02/04/2019 5:25 Results for this AM EST procedure are in the results section. BASIC METABOLIC PANEL Routine 02/04/2019 5:25 Results for this AM EST procedure are in the results section. EKG 12-LEAD - CMAXX 02/03/2019 11:08 REPORT AM EST EKG 12-LEAD - CMAXX 02/03/2019 11:08 REPORT AM EST EKG 12-LEAD Routine 02/03/2019 11:08 Results for this AM EST procedure are in the results section. CBC Routine 02/03/2019 4:03 Results for this AM EST procedure are in the results section. BASIC METABOLIC PANEL Routine 02/03/2019 4:03 Results for this AM EST procedure are in the results section. XR HIPS- BILAT, 3-4 Urgent 02/02/2019 6:08 Diagnosis unknown Results for this VIEWS 92887 PM EST procedure are in the results section. XR PELVIS 1-2 VIEWS Urgent 02/02/2019 6:02 Results for this 02230 PM EST procedure are in the results section. CT HEAD WITHOUT Routine 02/02/2019 12:10 Results for this CONTRAST 36156 PM EST procedure are in the results section. ECHOCARDIOGRAM 2D STAT 02/02/2019 10:33 Results for this COMPLETE AM EST procedure are in the results section. EKG 12-LEAD - CMAXX 02/02/2019 10:11 REPORT AM EST EKG 12-LEAD - CMAXX 02/02/2019 10:11 REPORT AM EST EKG 12-LEAD Routine 02/02/2019 10:11 Results for this AM EST procedure are in the results section. CT HEAD WITHOUT CODE 02/02/2019 5:53 Results for this CONTRAST 72285 AM EST procedure are in the results section. HEPATITIS C ANTIBODY Routine 02/02/2019 5:27 Results for this AM EST procedure are in the results section. HEPATITIS C RNA, Routine 02/02/2019 5:27 Results for this QUANTITATIVE, PCR AM EST procedure are in the results section. CBC Routine 02/02/2019 5:27 Results for this AM EST procedure are in the results section. TSH Routine 02/02/2019 5:27 Results for this AM EST procedure are in the results section. PHOSPHORUS LEVEL Routine 02/02/2019 5:27 Results for this AM EST procedure are in the results section. MAGNESIUM LEVEL Routine 02/02/2019 5:27 Results for this AM EST procedure are in the results section. BASIC METABOLIC PANEL Routine 02/02/2019 5:27 Results for this AM EST procedure are in the results section. CT THORAX WITH CONTRAST CODE 02/02/2019 12:14 Results for this 79319 AM EST procedure are in the results section. CT ABDOMEN PELVIS WITH CODE 02/02/2019 12:14 Results for this CONTRAST 71546 AM EST procedure are in the results section. DRUGS OF ABUSE, URINE CODE 02/02/2019 12:12 Results for this AM EST procedure are in the results section. URINALYSIS WITH CODE 02/02/2019 12:12 Results for this MICROSCOPIC AM EST procedure are in the results section. CT LUMBAR SPINE WITHOUT CODE 02/02/2019 12:09 Results for this CONTRAST 20319 AM EST procedure are in the results section. CT THORACIC SPINE CODE 02/02/2019 12:09 Results for this WITHOUT CONTRAST 39800 AM EST procedure are in the results section. CT CERVICAL SPINE CODE 02/02/2019 12:07 Results for this WITHOUT CONTRAST 00301 AM EST procedure are in the results section. POCT ISTAT TROPONIN Routine 02/02/2019 12:01 Results for this AM EST procedure are in the results section. POCT ISTAT VBG/LAC Routine 02/01/2019 11:41 Results for this PM EST procedure are in the results section. POCT ISTAT CHEM8 Routine 02/01/2019 11:33 Results for this PM EST procedure are in the results section. PARTIAL THROMBOPLASTIN CODE 02/01/2019 11:28 Results for this TIME (PTT) PM EST procedure are in the results section. ETHYL ALCOHOL LEVEL CODE 02/01/2019 11:28 Results for this PM EST procedure are in the results section. PROTIME INR CODE 02/01/2019 11:28 Results for this PM EST procedure are in the results section. CBC AND DIFFERENTIAL CODE 02/01/2019 11:28 Results for this PM EST procedure are in the results section. LIPASE LEVEL CODE 02/01/2019 11:28 Results for this PM EST procedure are in the results section. COMPREHENSIVE METABOLIC CODE 02/01/2019 11:28 Results for this PANEL PM EST procedure are in the results section. documented in this encounter Results CBC (02/04/2019 5:25 AM EST) White Blood Cell 4.9 4 - 10 10*3/uL [facility] Pathology Red Blood Cell 3.67 (L) 4.6 - 6.1 [facility] 10*6/uL [facility] Hemoglobin 11.1 (L) 13.5 - 18 g/dL [facility] Hematocrit 33.6 (L) 41 - 53 % [facility] Mean Cell Volume 91.6 80 - 96 fL [facility] Mean Cell Hemoglobin 30.3 27 - 33 pg [facility] Mean Cell Hgb Conc 33.1 32.0 - 36.0 [facility] g/dL [facility] Red Cell Dist Width 16.6 (H) 11.5 - 14.5 % [facility]ology Platelet Count 207 150 - 400 [facility] 10*3/uL [facility] Specimen EDTA Whole Blood Performing Organization Address [facility] Phone Number [facility] [address] [place] [address] [phone] [facility] [address] [place] [address] Pathology Basic Metabolic Panel (02/04/2019 5:25 AM EST) Bicarbonate 21 (L) 22 - 29 mmol/L [facility] Chloride 105 98 - 107 mmol/L [facility] Creatinine 0.69 (L) 0.70 - 1.20 [facility] mg/dL [facility] Glucose 108 70 - 140 mg/dL [facility] Potassium 3.5 3.4 - 5.1 [facility] mmol/L [facility] Sodium 137 136 - 145 [facility] mmol/L [facility] Pathology Blood Urea Nitrogen 8 8 - 23 mg/dL [facility] Anion Gap 12 8 - 15 mmol/L [facility]ology Osmolality, Dharmesh 283 275 - 300 [facility] mosm/kg [facility] BUN/Cre Ratio 11 [facility] Calcium 9.5 8.8 - 10.2 [facility] mg/dL [facility] GFR Non >90 >60 [facility] Israeli 2008 CDK-EPI mL/min/1.73m2 [facility] GFR >90 >60 [facility] 2009 CKD-EPI mL/min/1.73m2 [facility] Specimen Plasma Performing Organization Address City/[facility] Phone Number [facility] [address] [place] [address] [phone] [facility] [address] [place] [address] Pathology EKG 12-LEAD - CMAXX REPORT (02/03/2019 11:08 AM EST) Narrative Performed At EKG 12-LEAD - CMAXX REPORT (02/03/2019 11:08 AM EST) Narrative Performed At EKG 12 Lead (02/03/2019 11:08 AM EST) Specimen Narrative Performed At Ventricular Rate: [facility] EKG 98 BPM Atrial Rate: 98 BPM P-R Interval: 174 ms QRS Duration: 90 ms Q-T Interval: 368 ms QTC Calculation(Bazett): 469 ms P Prather: 63 degrees R Prather: -42 degrees T Prather: 53 degrees : SINUS RHYTHM : LEFT AXIS DEVIATION : CONSIDER OLD INFERIOR INFARCT : ABNORMAL ECG : WHEN COMPARED WITH ECG OF 02-FEB-2019 10:11, : VENT. RATE HAS INCREASED BY 53 BPM : LEFT AXIS DEVIATION : POSSIBLE OLD INFERIOR INFARCT PATTERN EVIDENT : T WAVE INVERSION NO LONGER EVIDENT IN INFERIOR LEADS : PROLONGED QTC LESS MARKED : Confirmed by KARLA SARMIENTO ([id number]) on 02/03/2019 5:51:19 : PM Procedure Note Interface, Received Via [employer] - 02/03/2019 5:51 PM EST Ventricular Rate: 98 BPM Atrial Rate: 98 BPM P-R Interval: 174 ms QRS Duration: 90 ms Q-T Interval: 368 ms QTC Calculation(Bazett): 469 ms P Prather: 63 degrees R Prather: -42 degrees T Prather: 53 degrees : SINUS RHYTHM : LEFT AXIS DEVIATION : CONSIDER OLD INFERIOR INFARCT : ABNORMAL ECG : WHEN COMPARED WITH ECG OF 02-FEB-2019 10:11, : VENT. RATE HAS INCREASED BY 53 BPM : LEFT AXIS DEVIATION : POSSIBLE OLD INFERIOR INFARCT PATTERN EVIDENT : T WAVE INVERSION NO LONGER EVIDENT IN INFERIOR LEADS : PROLONGED QTC LESS MARKED : Confirmed by KARLA SARMIENTO ([id number]) on 02/03/2019 5:51:19 : PM Performing Organization Address City/State/Zipcode Phone Number [facility] EKG CBC (02/03/2019 4:03 AM EST) White Blood Cell 5.6 4 - 10 10*3/uL [facility] Red Blood Cell 3.79 (L) 4.6 - 6.1 [facility] 10*6/uL [facility] Hemoglobin 11.4 (L) 13.5 - 18 g/dL [facility]ology Hematocrit 34.7 (L) 41 - 53 % [facility]ology Mean Cell Volume 91.6 80 - 96 fL [facility] Mean Cell Hemoglobin 30.2 27 - 33 pg [facility] Mean Cell Hgb Conc 32.9 32.0 - 36.0 [facility] g/dL [facility] Pathology Red Cell Dist Width 16.4 (H) 11.5 - 14.5 % [facility] Pathology Platelet Count 237 150 - 400 [facility] 10*3/uL [facility] Pathology Specimen EDTA Whole Blood Performing Organization Address [facility] Phone Number [facility] [address] [place] [address] [phone] [facility] [address] [place] [address] Pathology Basic Metabolic Panel (02/03/2019 4:03 AM EST) Bicarbonate 22 22 - 29 mmol/L [facility]ology Chloride 104 98 - 107 mmol/L [facility] Creatinine 0.76 0.70 - 1.20 [facility] mg/dL [facility]ology Glucose 100 70 - 140 mg/dL [facility] Potassium 4.0 3.4 - 5.1 mmol/L [facility]ology Sodium 136 136 - 145 mmol/L [facility] Blood Urea Nitrogen 7 (L) 8 - 23 mg/dL [facility] Anion Gap 10 8 - 15 mmol/L [facility]ology Osmolality, Dharmesh 280 275 - 300 [facility] mosm/kg [facility]ology BUN/Cre Ratio 9 [facility] Calcium 9.8 8.8 - 10.2 mg/dL [facility]ology GFR Non >90 >60 [facility] Israeli 2009 CDK-EPI mL/min/1.73m2 [facility] GFR >90 >60 [facility] 2009 CKD-EPI mL/min/1.73m2 [facility] Specimen Plasma Performing Organization Address City/[facility] Phone Number [facility] [address] [place] [address] [phone] [facility] [address] [place] [address] Pathology XR Hips - Bilateral, 3-4 Views (02/02/2019 6:08 PM EST) Specimen Narrative Performed At PROCEDURE INFORMATION: [facility] RAD[facility] Exam: XR Bilateral Hips with Pelvis when Performed Exam date and time: 02/02/2019 6:16 PM Age: 64 years old Clinical history: Illness, unspecified; Other: S/P trauma complaining of pain right hip area TECHNIQUE: Imaging protocol: XR bilateral hips with pelvis when performed. Views: 3 or 4 views. COMPARISON: CT ABDOMEN PELVIS WITH CONTRAST [id number] 02/01/2019 11:44 PM FINDINGS: Bones/joints: Mild degenerative changes. No evidence of acute fracture or dislocation. Soft tissues: Grossly unremarkable. IMPRESSION: No evidence of acute fracture or dislocation. THIS DOCUMENT HAS BEEN ELECTRONICALLY SIGNED BY FABIANA CRUMP MD Procedure Note Interface, Received Via [employer] - 02/02/2019 6:34 PM EST PROCEDURE INFORMATION: Exam: XR Bilateral Hips with Pelvis when Performed Exam date and time: 02/02/2019 6:16 PM Age: 64 years old Clinical history: Illness, unspecified; Other: S/P trauma complaining of pain right hip area TECHNIQUE: Imaging protocol: XR bilateral hips with pelvis when performed. Views: 3 or 4 views. COMPARISON: CT ABDOMEN PELVIS WITH CONTRAST [id number] 02/01/2019 11:44 PM FINDINGS: Bones/joints: Mild degenerative changes. No evidence of acute fracture or dislocation. Soft tissues: Grossly unremarkable. IMPRESSION: No evidence of acute fracture or dislocation. THIS DOCUMENT HAS BEEN ELECTRONICALLY SIGNED BY FABIANA CRUMP MD Performing Organization Address City/State/Zipcode Phone Number [facility] [address] [place] [address] XR Pelvis 1-2 Views (02/02/2019 6:02 PM EST) Specimen Narrative Performed At PROCEDURE INFORMATION: [facility] RAD[facility] Exam: XR Pelvis Exam date and time: 02/02/2019 6:17 PM Age: 64 years old Clinical history: Illness, unspecified; Other: S/P trauma complaining of pain in right upper hip area TECHNIQUE: Imaging protocol: XR pelvis. Views: 1 or 2 view. COMPARISON: CT ABDOMEN PELVIS WITH CONTRAST [id number] 02/01/2019 11:44 PM FINDINGS: Bones/joints: Mild degenerative changes. No evidence of acute fracture or dislocation. Soft tissues: Grossly unremarkable. IMPRESSION: No evidence of acute fracture or dislocation. THIS DOCUMENT HAS BEEN ELECTRONICALLY SIGNED BY FABIANA CRUMP MD Procedure Note Interface, Received Via [employer] System - 02/02/2019 6:45 PM EST PROCEDURE INFORMATION: Exam: XR Pelvis Exam date and time: 02/02/2019 6:17 PM Age: 64 years old Clinical history: Illness, unspecified; Other: S/P trauma complaining of pain in right upper hip area TECHNIQUE: Imaging protocol: XR pelvis. Views: 1 or 2 view. COMPARISON: CT ABDOMEN PELVIS WITH CONTRAST [id number] 02/01/2019 11:44 PM FINDINGS: Bones/joints: Mild degenerative changes. No evidence of acute fracture or dislocation. Soft tissues: Grossly unremarkable. IMPRESSION: No evidence of acute fracture or dislocation. THIS DOCUMENT HAS BEEN ELECTRONICALLY SIGNED BY FABIANA CRUMP MD Performing Organization Address City/State/Zipcode Phone Number [facility] [address] [place] [address] CT Head without Contrast (02/02/2019 12:10 PM EST) Specimen Impressions Performed At IMPRESSION: [facility] 1. Stable and bilateral frontal hemorrhagic contusion and subarachnoid hemorrhage. 2. No evidence of new intracranial hemorrhage or extra-axial fluid collection. Narrative Performed At INDICATION: 64-year-old male with history of intracranial hemorrhage. [facility] RAD[facility] TECHNIQUE: Noncontrast CT of the head using axial technique was performed. Automated dose lowering techniques and/or adjustment according to patient size were utilized for this exam. COMPARISON: CT head dated 02/02/2019 5:39 AM. FINDINGS: There are stable foci of left frontal hemorrhagic contusion and subarachnoid hemorrhage. Small right frontal hemorrhagic contusion is stable. There is no significant change in the left frontal subdural hematoma extending to anterior falx. There is no evidence of new intracranial hemorrhage or extra-axial fluid collection. There is no evidence of acute territorial infarct. Basal cisterns are patent. There is generalized volume loss with commensurate ventricular enlargement. There are mucosal thickening of bilateral maxillary sinuses. Mastoid air cells are clear. No depressed calvarial fracture. Left frontal scalp swelling again noted. Procedure Note Interface, Received Via [employer] - 02/02/2019 3:17 PM EST INDICATION: 64-year-old male with history of intracranial hemorrhage. TECHNIQUE: Noncontrast CT of the head using axial technique was performed. Automated dose lowering techniques and/or adjustment according to patient size were utilized for this exam. COMPARISON: CT head dated 02/02/2019 5:39 AM. FINDINGS: There are stable foci of left frontal hemorrhagic contusion and subarachnoid hemorrhage. Small right frontal hemorrhagic contusion is stable. There is no significant change in the left frontal subdural hematoma extending to anterior falx. There is no evidence of new intracranial hemorrhage or extra-axial fluid collection. There is no evidence of acute territorial infarct. Basal cisterns are patent. There is generalized volume loss with commensurate ventricular enlargement. There are mucosal thickening of bilateral maxillary sinuses. Mastoid air cells are clear. No depressed calvarial fracture. Left frontal scalp swelling again noted. IMPRESSION: 1. Stable and bilateral frontal hemorrhagic contusion and subarachnoid hemorrhage. 2. No evidence of new intracranial hemorrhage or extra-axial fluid collection. Performing Organization Address City/State/Zipcode Phone Number [facility] [address] [place] [address] Echocardiogram 2D Complete (02/02/2019 10:33 AM EST) Specimen Narrative Performed At HEIGHT: 165.1 cm (5 ft 5.0 in) [facility] ECHO WEIGHT: 64.9 kg (143.0 lbs) BP: 107/64 BSA: FINDINGS ------- TYPE OF REPORT:This is a complete two-dimensional transthoracic echocardiogram (2D, M-mode, Doppler and color flow Doppler). STUDY QUALITY:This was a technically adequate study. LEFT VENTRICLE:The left ventricle size is normal. There is mild concentric left ventricular hypertrophy. Overall LV systolic function is normal. The calculated left ventricular ejection fraction is 66.4% . There are no regional wall motion abnormalities. Doppler indices do not show any significant evidence of diastolic dysfunction. RIGHT VENTRICLE:The right ventricle is normal in size and wall thickness. The right ventricular systolic function is normal. LEFT ATRIUM:The left atrium size by volume measurement is normal (16-34 ml/m2). RIGHT ATRIUM:The right atrium size by volume measurement is normal. AORTIC VALVE:Aortic valve leaflets are mildly thickened. The aortic valve is functionally normal. MITRAL VALVE:The mitral valve appears structurally normal. The mitral valve is functionally normal. PULMONIC VALVE:The pulmonic valve appears structurally normal. The pulmonic valve is functionally normal. TRICUSPID VALVE:The tricuspid valve appears structurally normal. Mild tricuspid regurgitation present. The estimated PA systolic pressure is within normal limits. PERICARDIUM:There is no pericardial effusion. AORTA:The aortic root is normal. IVC / HEPATIC VEINS:The inferior vena cava is normal in size with preserved inspiratory collapse. CONCLUSIONS 1. This is a complete two-dimensional transthoracic echocardiogram (2D, M-mode, Doppler and color flow Doppler). 2. The left ventricle size is normal. 3. There is mild concentric left ventricular hypertrophy. 4. Overall LV systolic function is normal. 5. The calculated left ventricular ejection fraction is 66.4% . 6. The right ventricular systolic function is normal. 7. Mild tricuspid regurgitation present. 8. No prior reports available for comparison. Conclusions completed MEASUREMENTS Ao Diam: 3.18 cm LA Diam: 3.27 cm IVSd: 1.24 cm LVIDd: 4.39 cm LVPWd: 1.16 cm LVIDs: 2.60 cm LVIDs Index: 1.51 cm/m ESV(Teich): 24.63 ml EF(Teich): 71.83 % ESV(Cube): 17.60 ml EF(Cube): 79.27 % %FS: 40.81 % SV(Teich): 62.81 ml SI(Teich): 36.52 ml/m SV(Cube): 67.28 ml SI(Cube): 39.11 ml/m RWT: 0.53 LALd A4C: 4.95 cm LAAd A4C: 16.22 cm LAEDV A-L A4C: 45.13 ml LAEDV MOD A4C: 42.16 ml LALd A2C: 4.78 cm LAAd A2C: 16.87 cm LAEDV A-L A2C: 50.57 ml LAEDV MOD A2C: 48.45 ml LAEDV(A-L): 48.62 ml LAEDV Index (A-L): 28.27 ml/m LAEDV(MOD BP): 45.93 ml LAEDVInd MOD BP: 26.71 ml/m RALs: 4.71 cm RAAs A4C: 12.28 cm RAESV A-L: 27.16 ml RAESV INDEX: 15.79 ml/m TAPSE: 2.20 cm MV E Graham: 0.82 m/s MV DecT: 293.44 ms MV Dec [place]: 2.79 m/s MV A Graham: 0.99 m/s MV E/A Ratio: 0.83 MV PHT: 85.10 ms MVA By PHT: 2.59 cm LVOT Vmax: 0.92 m/s LVOT Vmean: 0.60 m/s LVOT maxP.39 mmHg LVOT meanP.75 mmHg AV Vmax: 1.37 m/s AV Vmean: 0.87 m/s AV maxP.52 mmHg AV meanP.64 mmHg AV VTI: 35.35 cm DVI: 0.65 TR Vmax: 2.48 m/s TR maxP.70 mmHg RAP: 3.00 mmHg RVSP: 27.70 mmHg Electronically Signed By: Rico Fair MD FAC Electronically Signed On: 02/02/2019 12:38:15 Procedure Note Interface, Received Via [employer] - 02/02/2019 12:40 PM EST HEIGHT: 165.1 cm (5 ft 5.0 in) WEIGHT: 64.9 kg (143.0 lbs) BP: 107/64 BSA: FINDINGS ------- TYPE OF REPORT:This is a complete two-dimensional transthoracic echocardiogram (2D, M-mode, Doppler and color flow Doppler). STUDY QUALITY:This was a technically adequate study. LEFT VENTRICLE:The left ventricle size is normal. There is mild concentric left ventricular hypertrophy. Overall LV systolic function is normal. The calculated left ventricular ejection fraction is 66.4% . There are no regional wall motion abnormalities. Doppler indices do not show any significant evidence of diastolic dysfunction. RIGHT VENTRICLE:The right ventricle is normal in size and wall thickness. The right ventricular systolic function is normal. LEFT ATRIUM:The left atrium size by volume measurement is normal (16-34 ml/m2). RIGHT ATRIUM:The right atrium size by volume measurement is normal. AORTIC VALVE:Aortic valve leaflets are mildly thickened. The aortic valve is functionally normal. MITRAL VALVE:The mitral valve appears structurally normal. The mitral valve is functionally normal. PULMONIC VALVE:The pulmonic valve appears structurally normal. The pulmonic valve is functionally normal. TRICUSPID VALVE:The tricuspid valve appears structurally normal. Mild tricuspid regurgitation present. The estimated PA systolic pressure is within normal limits. PERICARDIUM:There is no pericardial effusion. AORTA:The aortic root is normal. IVC / HEPATIC VEINS:The inferior vena cava is normal in size with preserved inspiratory collapse. CONCLUSIONS 1. This is a complete two-dimensional transthoracic echocardiogram (2D, M-mode, Doppler and color flow Doppler). 2. The left ventricle size is normal. 3. There is mild concentric left ventricular hypertrophy. 4. Overall LV systolic function is normal. 5. The calculated left ventricular ejection fraction is 66.4% . 6. The right ventricular systolic function is normal. 7. Mild tricuspid regurgitation present. 8. No prior reports available for comparison. Conclusions completed MEASUREMENTS Ao Diam: 3.18 cm LA Diam: 3.27 cm IVSd: 1.24 cm LVIDd: 4.39 cm LVPWd: 1.16 cm LVIDs: 2.60 cm LVIDs Index: 1.51 cm/m ESV(Teich): 24.63 ml EF(Teich): 71.83 % ESV(Cube): 17.60 ml EF(Cube): 79.27 % %FS: 40.81 % SV(Teich): 62.81 ml SI(Teich): 36.52 ml/m SV(Cube):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 City/State/Zipcode Phone Number [facility] [address] [place] [address] CT Cervical Spine without Contrast (02/02/2019 12:07 AM EST) Specimen Impressions Performed At IMPRESSION: [facility] 1. Limited evaluation secondary to motion artifact. 2. No definite evidence for acute fracture or traumatic subluxation. Narrative Performed At CLINICAL INDICATION: [facility] Trauma. TECHNIQUE: Axial CT images of the cervical spine were obtained without intravenous contrast administration. Reformatted images in coronal and sagittal planes were then acquired using the axial source data. Automated dose lowering techniques and/or adjustment according to patient size were utilized for this examination. COMPARISON: None at our institution at the time of this dictation. FINDINGS: Images are degraded by motion artifact which limits evaluation. There is straightening of the cervical lordosis. There are no acute fractures. 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 Linear lucency is noted through anterior osteophyte of C2 with well-corticated edges likely related to a prior fractured osteophyte. Apparent posterior displacement of C5 on C6 likely related to motion artifact. There is severe narrowing of the intervertebral disc space at C5-C6 with associated endplate degenerative changes and bilateral neural foramina narrowing. There is no prevertebral soft tissue swelling. Procedure Note Interface, Received Via [employer] - 02/02/2019 11:58 AM EST CLINICAL INDICATION: Trauma. TECHNIQUE: Axial CT images of the cervical spine were obtained without intravenous contrast administration. Reformatted images in coronal and sagittal planes were then acquired using the axial source data. Automated dose lowering techniques and/or adjustment according to patient size were utilized for this examination. COMPARISON: None at our institution at the time of this dictation. FINDINGS: Images are degraded by motion artifact which limits evaluation. There is straightening of the cervical lordosis. There are no acute fractures. 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 Linear lucency is noted through anterior osteophyte of C2 with well-corticated edges likely related to a prior fractured osteophyte. Apparent posterior displacement of C5 on C6 likely related to motion artifact. There is severe narrowing of the intervertebral disc space at C5-C6 with associated endplate degenerative changes and bilateral neural foramina narrowing. There is no prevertebral soft tissue swelling. IMPRESSION: 1. Limited evaluation secondary to motion artifact. 2. No definite evidence for acute fracture or traumatic subluxation. Performing Organization Address City/State/Zipcoct Phone Number [facility] [address] [place] [address] POCT i-STAT Troponin (02/02/2019 12:01 AM EST) i-STAT Troponin I 0.00 0.00 - 0.08 ng/mL [facility] POC Specimen Whole Blood Performing Organization Address [facility]State[facility] Phone Number POINT OF CARE TEST [address] [place], [place] [address] [place] [address] POC [address] [place] [address] POCT i-STAT VBG Lactic Acid (02/01/2019 11:41 PM EST) i-STAT Venous pH 7.37 7.36 - 7.41 [facility] POC i-STAT Venous PCO2 50 (H) 40 - 45 mmHg [facility] POC i-STAT Venous PO2 32 mmHg [facility] POC i-STAT Venous Base 2 mmol/L [facility] Excess [facility] POC i-STAT Venous SO2 58 (L) 60 - 85 % [facility] POC i-STAT Venous Lactic 2.9 (H) 0.5 - 2.2 mmol/L [facility] Acid [facility] POC i-STAT Venous Total 30 mmol/L [address] POC Specimen Whole Blood Performing Organization Address [facility] Phone Number POINT OF CARE TEST [address] [place], [place] [id number] [place] [address] POC [address] [place] [address] POCT i-STAT Chem 8 (02/01/2019 11:33 PM EST) i-STAT Sodium 143 136 - 145 mmol/L [facility] POC i-STAT Potassium 4.2 3.4 - 5.1 mmol/L [facility] POC i-STAT Chloride 106 98 - 107 mmol/L [facility] POC i-STAT TCO2 27 22 - 29 mmol/L [facility] POC i-STAT Ionized 1.29 1.13 - 1.32 [facility] Calcium mmol/L [facility] POC i-STAT Glucose 79 70 - 140 mg/dL [facility] POC i-STAT BUN <3 (L) 8 - 23 mg/dL [facility] POC i-STAT Creatinine 1.1 0.70 - 1.20 [facility] mg/dL [facility] POC i-STAT Hematocrit 40 (L) 41 - 53 % [facility] POC i-STAT Hemoglobin 13.6 13.5 - 18.0 g/dL [facility] POC Specimen Whole Blood Performing Organization Address [facility] Phone Number POINT OF CARE TEST [address] POC [address] [place] [address] Protime-INR (02/01/2019 11:28 PM EST) PT Patient 13.2 12.5 - 14.9 [facility] Clin Pathology Int'l Normalized 0.97Comment: Routine [facility] Ratio intensity oral Univ Clin anticoagulation INR is Pathology typically 2.0-3.0. Target INR must be clinically individualized. Specimen Plasma Performing Organization Address [facility] Phone Number [facility] PATHOLOGY [address] [place] [address] [phone] [facility] [address] [place] [address] Pathology Lipase Level (02/01/2019 11:28 PM EST) Lipase 66 (H) 13 - 60 U/L [facility] Pathology Specimen Plasma Performing Organization Address [facility] Phone Number [facility] CL[facility]ICAL PATHOLOGY [address] [place] [address] [facility] [address] [place] [address] Pathology Partial Thromboplastin Time (PTT) (02/01/2019 11:28 PM EST) PTT Patient (PAT) 31.2 24.0 - 34.0 s [facility] Pathology Specimen Plasma Performing Organization Address [facility] Phone Number [facility] CL[facility]ICAL PATHOLOGY [address] [place] [address] [facility] [address] [place] [address] Pathology Ethyl Alcohol Level (02/01/2019 11:28 PM EST) Ethyl Alcohol 0.33 (A) Negative g/dl [facility] Pathology Specimen Plasma Performing Organization Address [facility] Phone Number [facility] CL[facility]ICAL PATHOLOGY [address] [place] [address] [facility] [address] [place] [address] Pathology Comprehensive Metabolic Panel (02/01/2019 11:28 PM EST) Albumin 3.9 3.5 - 5.2 g/dL [facility] Pathology Bilirubin, Total 0.2 <1.2 mg/dL [facility] Pathology Calcium 9.6 8.8 - 10.2 [facility] mg/dL Univ [facility] Pathology Chloride 105 98 - 107 mmol/L [facility] Pathology Creatinine 0.63 (L) 0.70 - 1.20 [facility] mg/dL [facility] Pathology Glucose 81 70 - 140 mg/dL [facility] Pathology Alkaline Phosphatase 71 40 - 129 U/L [facility] Pathology Potassium 3.7 3.4 - 5.1 [facility] mmol/L [facility] Clin Pathology Total Protein 7.7 6.4 - 8.3 g/dL [facility] Pathology Sodium 141 136 - 145 [facility] mmol/L [facility] Pathology AST/SGO 25 <40 U/L [facility] Pathology Blood Urea Nitrogen 4 (L) 8 - 23 mg/dL [facility] Pathology Osmolality, Dharmesh 288 275 - 300 [facility] mosm/kg [facility] Pathology BUN/Cre Ratio 6 [facility] Pathology Bicarbonate 23 22 - 29 mmol/L [facility] Pathology ALT/SGP 10 <41 U/L [facility] Pathology Anion Gap 13 8 - 15 mmol/L [facility] Pathology A/G Ratio 1.0 [facility] Pathology GFR Non >90 >60 [facility] Israeli 2008 CDK-EPI mL/min/1.73m2 Univ [facility] Pathology GFR >90 >60 [facility] 2009 CKD-EPI mL/min/1.73m2 [facility] Pathology Specimen Plasma Performing Organization Address City/[facility] Phone Number [facility] CL[facility]ICAL PATHOLOGY [address] [place] [address] [phone] [facility] [address] [place] [address] Pathology CBC and Differential (02/01/2019 11:28 PM EST) White Blood Cell 4.4 4 - 10 [facility] 10*3/uL [facility] Clin Pathology Red Blood Cell 4.59 (L) 4.6 - 6.1 [facility] 10*6/uL [facility] Pathology Hemoglobin 13.9 13.5 - 18 [facility] g/dL [facility] Pathology Hematocrit 42.3 41 - 53 % [facility] Pathology Mean Cell Volume 92.1 80 - 96 fL [facility] Pathology Mean Cell Hemoglobin 30.2 27 - 33 pg [facility] Pathology Mean Cell Hgb Conc 32.8 32.0 - 36.0 [facility] g/dL [facility] Pathology Red Cell Dist Width 16.7 (H) 11.5 - 14.5 % [facility] Pathology Platelet Count 251 150 - 400 [facility] 10*3/uL [facility] Pathology Differential Type Automated Diff [facility] Pathology Neutrophil 54 % [facility] Pathology Lymphocyte 31 % [facility] Pathology Monocyte 8 % [facility] Pathology Eosinophil 4 % [facility] Pathology Basophil 3 % [facility] Pathology Abs Neutrophil 2.30 1.8 - 7.0 [facility] 10*3/uL Univ [facility] Pathology Abs Lymphocyte 1.29 1.2 - 4.0 [facility] 10*3/uL [facility] Pathology Abs Monocyte 0.32 0 - 0.8 [facility] 10*3/uL [facility] Pathology Abs Eosinophil 0.18 0 - 0.5 [facility] 10*3/uL [facility] Pathology Abs Basophil 0.12 0 - 0.2 [facility] 10*3/uL [facility] Pathology Nucleated Red Blood 0 0 - 0 [facility] Cells /100{WBCs} [facility] Clin Pathology Specimen EDTA Whole Blood Performing Organization Address City/State/Zipcode Phone Number [facility] CL[facility]ICAL PATHOLOGY [address] [place] [address] [phone] [facility] [address] [place] [address] Pathology documented in this encounter Visit Diagnoses Diagnosis Fall - Primary Unspecified fall Diagnosis unknown Other unknown and unspecified cause of morbidity or mortality Subdural hematoma Subdural hemorrhage SAH (subarachnoid hemorrhage) Subarachnoid hemorrhage Acute pain due to trauma Alcohol intoxication Alcohol abuse, unspecified Contusion Contusion of unspecified site History of colonic diverticulitis Personal history of other diseases of digestive system Unilateral inguinal hernia Inguinal hernia without mention of obstruction or gangrene, unilateral or unspecified, (not specified as recurrent) Lesion of liver Other specified disorders of liver OA (osteoarthritis of spine) Spondylosis of unspecified site without mention of myelopathy Rib fracture Closed fracture of rib(s), unspecified Hepatic steatosis Other chronic nonalcoholic liver disease Atelectasis, bilateral Pulmonary collapse Hemivertebra documented in this encounter Administered Medications Medication Order MAR Action Action Date Dose Rate Site acetaminophen (TYLENOL) tablet Given 02/04/2019 12:15 PM EST 650 mg 650 mg 650 mg, Oral, Every 6 hours, First dose on Thu02/03/19 at 1030, For 30 days, Maximum daily dose of acetaminophen is 3,000 mg from all sources in 24 hours., Given 02/04/2019 5:16 AM EST 650 mg Given 02/04/2019 1:10 AM EST 650 mg amlodipine (NORVASC) tablet 10 mg Given 02/04/2019 9:20 AM EST 10 mg 10 mg, Oral, Daily Standard, First dose (after last modification) on Thu02/04/19 at 0915, For 30 days, Check vital signs before administering, bisacodyl (DULCOLAX) suppository 10 mg 10 mg, Rectal, Daily PRN, Constipation, Starting Thu02/02/19 at 1832, For 30 days docusate sodium (COLACE) capsule 100 mg Given 02/03/2019 9:56 PM EST 100 mg 100 mg, Oral, 2 Times Daily, First dose on Thu02/02/19 at 2100, For 30 days Given 02/02/2019 8:36 PM EST 100 mg enoxaparin sodium (LOVENOX) injection 40 mg Given 02/04/2019 9:20 AM EST 40 mg 40 mg, Subcutaneous, Daily Standard, First dose on Thu02/03/19 at 1200, For 30 days Given 02/03/2019 12:03 PM EST 40 mg folic acid (FOLVITE) tablet 1 mg Given 02/04/2019 9:20 AM EST 1 mg 1 mg, Oral, Daily Standard, First dose on Thu02/02/19 at 0900, For 30 days Given 02/03/2019 9:03 AM EST 1 mg Given 02/02/2019 8:55 AM EST 1 mg gabapentin (NEURONTIN) capsule 400 mg 400 mg, Oral, Every 8 hours, First dose on Thu02/05/19 at 0300, For 1 day, Refer to Pharmacy for renal dosing, gabapentin (NEURONTIN) capsule 600 mg Given 02/04/2019 9:20 AM EST 600 mg 600 mg, Oral, Every 6 hours, First dose on Thu02/02/19 at 0715, For 3 days Given 02/04/2019 5:16 AM EST 600 mg Given 02/03/2019 9:56 PM EST 600 mg multivitamin tablet 1 tablet Given 02/04/2019 9:20 AM EST 1 tablet 1 tablet, Oral, Daily Standard, First dose on Thu02/02/19 at 0900, For 30 days Given 02/03/2019 9:03 AM EST 1 tablet Given 02/02/2019 8:55 AM EST 1 tablet oxyCODONE (ROXICODONE) immediate release tablet 10 mg 10 mg, Oral, Every 4 hours PRN, Severe Pain (Pain Scale Score 7-10), Starting Thu02/02/19 at 0335, For 3 days, Oxycodone immediate release is limited to 10 mg per dose. Higher doses ( only) require Pain Service consultation and approval., oxyCODONE (ROXICODONE) immediate release tablet 5 mg 5 mg, Oral, Every 4 hours PRN, Moderate Pain (Pain Scale Score 4-6), Starting Thu02/02/19 at 0335, For 3 days, Oxycodone immediate release is limited to 10 mg per dose. Higher doses ( only) require Pain Service consultation and approval., senna 8.6 MG 2 tablet Given 02/03/2019 9:57 PM EST 2 tablets 2 tablet, Oral, Nightly, First dose on Thu02/02/19 at 2200, For 30 days thiamine (B-1) tablet 100 mg Given 02/04/2019 9:20 AM EST 100 mg 100 mg, Oral, Daily Standard, First dose on Thu02/03/19 at 0900, For 30 days Given 02/03/2019 9:03 AM EST 100 mg Medication Order MAR Action Action Date Dose Rate Site hydrALAZINE (APRESOLINE) Given by IV push 02/03/2019 4:58 PM EST 10 mg injection 10 mg 10 mg, Intravenous, Every 6 hours PRN, Other, SPB greater than 150, Starting Thu02/02/19 at 0746, For 30 days, Dilute in 25-50 ml normal saline. Administer over 30 minutes., Given by IV push 02/03/2019 11:59 AM EST 10 mg New Bag 02/03/2019 6:13 AM EST 10 mg iohexol (OMNIPAQUE) 300 New Syringe/Cartridge 02/01/2019 11:47 PM 100 mLs Left Arm MG/ML contrast EST injection 100 mL 100 mL, Given by IV, 1 TIME IMAGING, 02/01/19 at 2345, For 1 dose labetalol (NORMODYNE,TRANDATE) injection 20 New Bag 02/03/2019 7:01 PM EST 20 mg mg 20 mg, Intravenous, Once, [facility] 02/03/19 at 1845, For 1 dose melatonin tablet 1 mg Given 02/02/2019 11:56 PM EST 1 mg 1 mg, Oral, Once, Thu02/02/19 at 2345, For 1 dose NaCl infusion 0.9 % New Bag 02/02/2019 4:15 AM EST 100 mL/hr at 100 mL/hr, Intravenous, Continuous, Starting Thu02/02/19 at 0345, For 30 days potassium chloride (K-DUR,KLOR-CON) Given 02/02/2019 8:36 PM EST 20 mEq dissolvable tablet 20 mEq 20 mEq, Oral, 2 Times Daily, First dose on Thu02/02/19 at 1030, For 2 doses, Do not crush or chew, Given 02/02/2019 11:54 AM EST 20 mEq sodium chloride 0.9 % Rate/Dose Verify 02/02/2019 7:00 PM 100 mL/hr 100 mL /hr 1,000 mL with MVI adult EST 10 mL, folic acid 1 mg, magnesium sulfate 16 mEq, thiamine (B-1) 100 mg infusion at 100 mL/hr, Intravenous, Continuous, Starting Thu02/02/19 at 0715, For 10 hours, Run in at 100 mL/hr until done., Rate/Dose Verify 02/02/2019 6:00 PM EST 100 mL/hr 100 mL/hr Rate/Dose Verify 02/02/2019 5:00 PM EST 100 mL/hr 100 mL/hr sodium chloride 0.9 % bolus 1,000 mL New Bag 02/02/2019 12:06 AM EST 1,000 mLs 1,000 mL, Intravenous, Once, Thu02/02/19 at 0000, For 1 dose thiamine (B-1) injection 100 mg New Bag 02/02/2019 12:06 AM EST 100 mg 100 mg, Intravenous, Once, Thu02/02/19 at 0000, For 1 dose documented in this encounter
--- NOTE | 2019-03-31 18:50 | ED ---
Neurological HPI - HPI Summary HPI Summary: Patient is a 64 y/o M presenting to [facility] with complaints of right sided- weakness and slurred speech. Brother, who is present in the room, reports that the patient was last seen at baseline on 03/26/19. Brother also notes that the patient called the patient at 1824 yesterday, 03/30/19, and the patient was at baseline at the time. The patient was not answering the brother's phone calls today, 03/31/19. When the brother went to check on the patient, Sx were noted. It is reported that the patient had a TBI six weeks ago secondary to fall as well. No Hx of HLD or diabetes noted. Patient claims Hx of HTN but notes that he does not regularly take his BP medication. EMS report BP of 190s/120s. Home medications and allergies are reviewed. - History of Current Complaint Chief Complaint: EDNeurologicalDeficit Stated Complaint: POS STROKE PER EMS Hx Obtained From: Patient Onset/Duration: Still Present Timing: Constant Neurological Deficit Location: RUE, RLE Pain Intensity: 4 Pain Scale Used: 0-10 Numeric Character: Motor Weakness, Impaired Speech Associated Signs and Symptoms: Positive: Weakness, Impaired Speech - Allergy/Home Medications Allergies/Adverse Reactions: Allergies Allergy/AdvReac Type Severity Reaction Status Date / Time No Known Allergies Allergy Verified 04/02/18 17:41 PMH/Surg Hx/FS Hx/Imm Hx Endocrine/Hematology History: Denies: Hx Anticoagulant Therapy Cardiovascular History: Reports: Hx Coronary Artery Disease, Hx Hypertension History: Denies: Hx Dialysis Neurological History: Denies: Hx CVA Infectious Disease History: No Infectious Disease History: Denies: Traveled Outside the [place] in Last 30 Days - Family History Known Family History: Negative: Cardiac Disease, Hypertension - Social History Alcohol Use: Daily Substance Use Type: Reports: None Hx Tobacco Use: Yes Smoking Status (MU): Heavy Every Day Tobacco Smoker Review of Systems Negative: Fever - on vitals, temp is 97.9 F Positive: Weakness, Slurred Speech All Other Systems Reviewed And Are Negative: Yes Physical Exam - Summary Physical Exam Summary: VITAL SIGNS: Reviewed. GENERAL: Patient is a well-developed and nourished male who is lying comfortable in the stretcher. Patient is not in any acute respiratory distress. HEAD AND FACE: No signs of trauma. No ecchymosis, hematomas or skull depressions. No sinus tenderness. EYES: PERRLA, EOMI x 2, No injected conjunctiva, no nystagmus. EARS: Hearing grossly intact. Ear canals and tympanic membranes are within normal limits. MOUTH: Oropharynx within normal limits. NECK: Supple, trachea is midline, no adenopathy, no JVD, no carotid bruit, no c- spine tenderness, neck with full ROM. CHEST: Symmetric, no tenderness at palpation. LUNGS: Clear to auscultation bilaterally. No wheezing or crackles. CVS: Regular rate and rhythm, S1 and S2 present, no murmurs or gallops appreciated. ABDOMEN: Soft, non-tender. No signs of distention. No rebound, no guarding, and no masses palpated. Bowel sounds are normal. EXTREMITIES: No edema, no cyanosis or clubbing. NEURO: Alert and oriented x 3. NIH is 10, see scale for breakdown. SKIN: Dry and warm. Triage Information Reviewed: Yes Vital Signs On Initial Exam: Initial Vitals Temp Pulse Resp BP Pulse Ox 97.9 F 49 15 118/112 96 03/31/19 18:26 03/31/19 18:26 03/31/19 18:26 03/31/19 18:26 03/31/19 18:26 Vital Signs Reviewed: Yes - [place] Coma Scale Best Eye Response: 4 - Spontaneous Best Motor Response: 6 - Obeys Commands Best Verbal Response: 5 - Oriented Coma Scale Total: 15 Procedures - Sedation Patient Received Moderate/Deep Sedation with Procedure: No Diagnostics - Vital Signs Vital Signs Temp Pulse Resp BP Pulse Ox 03/31/19 18:26 97.9 F 49 15 118/112 96 - Laboratory Result Diagrams: 03/31/19 19:39 03/31/19 19:39 Lab Statement: Any lab studies that have been ordered have been reviewed, and results considered in the medical decision making process. - Radiology CXR Radiology Interpretation Completed By: ED Physician Summary of Radiographic Findings: Cardiomegaly with a widened mediastinum, pending official report. - CT BRAIN CT CT Interpretation Completed By: Radiologist Summary of CT Findings: IMPRESSION: 1. There is a new mixed attenuation subdural fluid collection with isodense and. hyperdense as well as hypodense components of the left cerebral convexity. adjacent to the left frontal, temporal, parietal and occipital lobes consistent. with acute subdural hematoma measuring 3 cm thickness. 2. There is new effacement of left cerebral sulci and there is new significant. midline shift to the right measuring a maximum of 1.4 cm. 3. There is stable age-related diffuse cerebral volume loss and chronic. microvascular ischemic disease. THIS REPORT WAS REVIEWED BY ED PHYSICIAN. CERVICAL SPINE CT CT Interpretation Completed By: Radiologist Summary of CT Findings: CT CERVICAL SPINE IMPRESSION: No acute cervical spine fracture or other acute traumatic CT pathology. THIS REPORT WAS REVIEWED BY ED PHYSICIAN. THORACIC SPINE CT CT Interpretation Completed By: Radiologist Summary of CT Findings: CT THROACIC SPINE IMPRESSION: 1. There is acute appearing fracture involving the right 11th rib posteriorly. 2. No acute fracture of the thoracic spine. THIS REPORT WAS REVIEWED BY ED PHYSICIAN. LUMBAR SPINE CT CT Interpretation Completed By: Radiologist Summary of CT Findings: CT SPINE LUMAR IMPRESSION: 1. There is possibly acute fracture involving the posterior aspect of the right. 11th rib. 2. No acute lumbar spine fracture. THIS REPORT WAS REVIEWED BY ED PHYSICIAN. - EKG 1845 Cardiac Rate: Bradycardia - rate of 44 BPM EKG Rhythm: Sinus Bradycardia Summary of EKG Findings: EKG showed sinus bradycardia with rate of 44 BPM, no ST elevations. This EKG was reviewed and interpreted by ED physician. NIH Scale - NIH Scale Level of Consciousness: Alert/Keenly Responsive Ask Patient the Month and His/Her Age: Both Correct Ask Pt to Open/Close Eyes and Telesales Manager/Release Non-Paretic Hand: Both Correctly Best Gaze (Only Horizontal Eye Movement): Normal Visual Field Testing: No Visual Loss Facial Paresis-Pt to Smile & Close Eyes or Grimace Symmetry: Normal/Symmetrical Motor Function - Right Arm: No Effort Against [place] Motor Function - Left Arm: No Drift-Holds 10 Seconds Motor Function - Right Leg: No Effort Against [place] Motor Function - Left Leg: No Drift-Holds 10 Seconds Limb Ataxia-Must be out of Proportion to Weakness Present: Present in Two Limbs Sensory (Use Pinprick to Test Arms/Legs/Trunk/Face): Pinprick Less on Affected Best Language (Describe Picture, Name Items): No Aphasia Dysarthria (Read Several Words): Slurs Some Words Extinction and Inattention: No Abnormality Total Score: 10 Re-Evaluation - Re-Evaluation First Eval Re-Evaluation Time: 20:11 Comment: Neurosurgery in to evaluate the patient. Course/Dx - Course Assessment/Plan: Patient is a 64 y/o M presenting to [facility] with complaints of right sided-weakness and slurred speech. Brother, who is present in the room, reports that the patient was last seen at baseline on 03/26/19. Brother also notes that the patient called the patient at 1824 yesterday, 03/30/19, and the patient was at baseline at the time. The patient was not answering the brother' s phone calls today, 03/31/19. When the brother went to check on the patient, Sx were noted. It is reported that the patient had a TBI six weeks ago secondary to fall. No Hx of HLD or diabetes noted. Patient claims to only take a BP medication occasionally. Head CT IMPRESSION: 1. There is a new mixed attenuation subdural fluid collection with isodense and. hyperdense as well as hypodense components of the left cerebral convexity. adjacent to the left frontal, temporal, parietal and occipital lobes consistent. with acute subdural hematoma measuring 3 cm thickness. 2. There is new effacement of left cerebral sulci and there is new significant. midline shift to the right measuring a maximum of 1.4 cm. 3. There is stable age-related diffuse cerebral volume loss and chronic. microvascular ischemic disease. In the ED course the patient was given Nicardipine for hypertension. The patient was given Keppra to prevent seizures. At this point I discussed my physical exam and findings with Dr. Daniel from neurosurgery who recommends CT of the C-spine, L-spine and T-spine. He is coming to see the patient for consultation. Blood work without a significant abnormality except for normocytic normochromic anemia with a hemoglobin of 12.9 and hematocrit of 38. INR is 1.13, PTT of 29.9. Albumin is 11 creatinine 0.7, calcium 10.7, and the rest of the lites within normal limits. This time the patient is stable. Dr Silver will f/u CT os C , T and S spine. Dr. Daniel at the bedside and after he describes the benefits and risks with family members and patient they agree for surgery. Dr. Daniel requests for the patient to be admitted to the hospital services. I discussed the case with Dr. Elam from the hospital services and she agrees to admit the patient to the ICU. - Diagnoses Provider Diagnoses: Subdural hematoma, Uncontrolled hypertension - Physician Notifications Discussed Care Of Patient With: Lexie Daniel Time Discussed With Above Provider: 19:19 Instructed by Provider To: Other - 1916 - radiologist communicates Brain CT impressions over phone. 1918 - Patient's case was discussed with Dr. Daniel , Dr. Daniel will evaluate the patient. He recommends CT of cervical, thoracic, and lumbar spine. 2004 - Dr. Menjivar in ED to evaluate the patient. 2034 - Dr. Menjivar will perform surgery on the patient. Patient's case was discussed with Dr. Elam who will admit the patient to ICU. - Critical Care Time Critical Care Time: 30-74 min Discharge ED - Sign-Out/Discharge Documenting (check all that apply): Patient Departure - admit - Discharge Plan Condition: Guarded Disposition: ADMITTED TO [facility] Referrals: Adriana Spencer MD [Primary Care Provider] - - Billing Disposition and Condition Condition: GUARDED Disposition: Admitted to [facility] - Attestation Statements Document Initiated by Ireneibsalvador: Yes Documenting Scribe: MICHELLE DENT Provider For Whom Avel is Documenting (Include Credential): EDMUNDO RIVERA MD Scribe Attestation: MICHELLE Mckee scribed for EDMUNDO RIVERA MD on 03/31/19 at 2141. Scribe Documentation Reviewed: Yes Provider Attestation: The documentation as recorded by the MICHELLE almaraz accurately reflects the service I personally performed and the decisions made by , EDMUNDO RIVERA MD Status of Scribe Document: Viewed
[2019-03-31] MEDS ORDERED: niCARdipine 0.1MG/ML IVPREMIX* 20 MG/200 ML BAG IV SCH (19:00)
[2019-03-31] MEDS ORDERED: levETIRAcetam 1000MG IVPREMIX* 1,000 MG/100 ML BAG IVPB ONE (19:18)
[2019-03-31 20:07] LABS: ALT 15 U/L (7-52); Activated Partial Thrombo Time 29.9 seconds (26.0-38.0); Albumin/Globulin Ratio 0.9 (1-3); Alkaline Phosphatase 68 U/L (34-104); BUN/Creatinine Ratio 15.7 (8-20); Blood Urea Nitrogen 11 mg/dL (6-24); CO2 Carbon Dioxide 26 mmol/L (22-32); Calcium 10.7 mg/dL (8.6-10.3); Chloride 104 mmol/L (101-111); Cholesterol 220 mg/dL; EGFR African American 138.3 (>60); EGFR Non-African American 114.3 (>60); Globulin 4.7 g/dL (2-4); Glucose 89 mg/dL (70-100); HDL Cholesterol 41.6 mg/dL; INR 1.13 (0.82-1.09); LDL Cholesterol 160 mg/dL; Sodium 138 mmol/L (135-145); Total Protein 8.7 g/dL (6.4-8.9); Triglycerides 92 mg/dL
[2019-03-31 20:08] LABS: Troponin I 0.01 ng/mL (<0.03)
[2019-03-31 20:09] LABS: ABS Basophils 0.1 10^3/ul (0-0.2); ABS Eosinophils 0.2 10^3/ul (0-0.6); ABS Lymphocytes 0.8 10^3/ul (1.0-4.8); ABS Monocytes 0.5 10^3/ul (0-0.8); ABS Neutrophils 3.1 10^3/ul (1.5-7.7); Eosinophil % 4.8 %; Hematocrit 38 % (42-52); Hemoglobin 12.9 g/dL (14.0-18.0); Lymphocyte % 17.2 %; Mean Corpuscular HGB Conc 34 g/dL (31-36); Mean Corpuscular Hemoglobin 30 pg (27-31); Mean Corpuscular Volume 89 fL (80-94); Mean Platelet Volume 8.5 fL (7.4-10.4); Platelet Count 371 10^3/uL (150-450); Red Cell Distribution Width 15 % (10-15); White Blood Count 4.7 10^3/uL (3.5-10.8)
[2019-03-31 20:19] LABS: Alcohol < 10 mg/dL (<10)
[2019-03-31] MEDS ORDERED: fentaNYL* 50 MCG/ML 5 ML VIAL (250 MCG VIAL) ONE ×2 (20:33→22:31)
[2019-03-31] MEDS ORDERED: Midazolam* 1 MG/ML 5 ML VIAL (5 MG) ONE (20:33)
[2019-03-31] MEDS ORDERED: Rocuronium* 10 MG/ML VIAL ONE ×2 (20:33→23:32)
[2019-03-31] MEDS ORDERED: levETIRAcetam IV* 500 MG/5 ML VIAL ONE (20:36)
[2019-03-31] MEDS ORDERED: Mannitol 25% (12.5 GM) 50 ML* 12.5 GM/50 ML VIAL ONE ×2 (20:36→20:58)
[2019-03-31] MEDS ORDERED: ceFAZolin 2 GM PREMIX in ORs 2 GM/50 ML BAG ONE (20:38)
[2019-03-31 20:54] LABS: Anion Gap 8 mmol/L (2-11)
[2019-03-31] MEDS ORDERED: Lidocaine 1% w EPI 1:200,000* SDV 30 ML VIAL ONE (20:58)
[2019-03-31] MEDS ORDERED: Thrombin 5,000 UNITS(BOVINE)* for Ultrasound Guided Pseudoaneursym ONE (20:59)
[2019-03-31] MEDS ORDERED: Bacitracin INJECTION* 50,000 UNITS ONE (20:59)
[2019-03-31] MEDS ORDERED: Thrombin 5,000 UNITS* 1 APPLIC KIT - topical use - TOPICAL ONE (21:08)
[2019-03-31] MEDS ORDERED: Phenylephrine 10 MG/ML VIAL* 1 ML VIAL ONE (22:31)
[2019-03-31] MEDS ORDERED: Lidocaine 2% PF * 5 ML VIAL ONE (22:31)
[2019-03-31] MEDS ORDERED: Phenylephrine 40 MCG/ML SYRINGE ONE (22:31)
[2019-03-31] MEDS ORDERED: Norepinephrine VIAL* 1 MG/ML 4 ML VIAL ONE (22:32)
[2019-03-31] MEDS ORDERED: Dexamethasone IV* 4 MG/ML 1 ML (4 MG) ONE (22:32)
[2019-03-31] MEDS ORDERED: Propofol* 10 MG/ML 20 ML BTL ONE (22:32)
[2019-03-31] MEDS ORDERED: Ondansetron INJ* 2 MG/ML VIAL ONE (22:32)
--- NOTE | 2019-04-01 00:29 | CONS ---
CONSULTATION NOTE: DATE OF CONSULT: 03/31/19 HISTORY OF PRESENT ILLNESS: The patient is a very pleasant 64-year-old right- handed gentleman with a history of hypertension and alcohol abuse, who was brought to the emergency room after being found to have altered mental status and right-side weakness by his brother. The patient had a CT scan of the brain that revealed left subacute/ acute subdural hematoma with 1.4 cm midline shift. The patient was found to be right hemiparetic and having mixed aphasia. I was requested to see the patient because of the above findings by Dr. Qureshi in the emergency room. The patient was seen in the emergency room. History was obtained from the patient's chart and the patient's brother and sister, who was on the phone. The patient is reported to have history of a recent fall several weeks ago and he was diagnosed with subdural hematoma. He was treated in [facility] in [place] and he was discharged. The patient had had a history of alcohol abuse and withdrawal syndrome and he was recently discharged from [facility] where he was treated for alcohol abuse related issues. The patient was in his usual state of health and he reported to his brother and sister that approximately 2 days ago had a fall. the details of which are unknown. The patient was last seen at his baseline on 03/26/19 according to the patient's chart. The patient's brother called the patient yesterday afternoon on 03/30/19 and the patient appeared to be at his normal state of health. Today, the brother was trying to call the patient and because of the patient not answering the phone, his brother went to check him and found the patient to have right hemiparesis and slurred speech with confusion, and the patient was brought to the emergency room. No seizures reported. The patient has few weakness on the right upper and lower extremity. The patient was able to ambulate at the baseline and was able to live alone. 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 PAST MEDICAL HISTORY: Hypertension, alcohol abuse, coronary artery disease. PAST SURGICAL HISTORY: Negative per the patient's family. MEDICATIONS: The patient was reported to be on antihypertensive medication, but he was not compliant and was not taking them as reported in the chart. ALLERGIES: No known drug allergies. FAMILY HISTORY: Noncontributory. SOCIAL HISTORY: Tobacco, positive. Alcohol, positive. Recreational use, negative. The patient's brother reports that the patient has been going through alcohol withdrawal and the last time that he consumed alcohol was approximately 1 month ago. PHYSICAL EXAM: The patient is not in acute distress. He is awake and alert. He has mixed aphasia. He has slurred speech and he does not follow commands. He has right hemiparesis with mild spasticity. The patient is withdrawing briskly on the left side and he has weakness on the right side and he grimaces to pain to all extremities. Deep tendon reflexes +2 bilaterally. Clonus plus/ minus. The patient has Babinski on the right, negative on the left. Hu' s positive bilaterally. The patient has no tenderness to palpation of cervical, thoracic or lumbar spine. He has free range of motion of the cervical spine. DIAGNOSTIC STUDIES/LAB DATA: The patient had a CT scan of the brain that revealed a mixed density, left extensive subdural hematoma, which was measured at 3 cm width per radiologist with 1.4 cm midline shift from left to right with distortion of the ventricular system. There is effacement of the sulci on the left side and to a lesser degree on the right side. The patient had a CT scan of the cervical spine that revealed loss of cervical lordosis, but no evidence of fracture or subluxation. The patient had also a CT scan of the thoracic spine that did not reveal any evidence of fracture or subluxation in the thoracic spine, but there is a fracture involving right 11th rib according to the radiologist's report. The patient also had a CT scan of the lumbar spine, but did not reveal any acute lumbar spine fractures. There is evidence of extensive degenerative disease. ASSESSMENT: The patient is a very pleasant 64-year-old right-hand gentleman with history of hypertension and alcohol abuse with a recent diagnosis of subdural hematoma with new onset of aphasia and right hemiparesis with CT scan findings consistent with a large left mixed density subdural hematoma. PLAN: The patient at this point has signs of elevated intracranial pressure with midline shift. The patient is symptomatic and I think that surgical intervention is the best treatment for him. Discussed extensively with the patient's brother and sister regarding treatment options as well as expectations , limitations, and possible complications of the procedure with complications including, but not limited to bleeding, infection, risk of injury to adjacent structures, coma, paralysis, , need for additional procedures, anesthesia risks, stroke, blindness, seizures, spinal fluid leak, reaccumulation of the subdural hematoma, need for prolonged ICU stay, need for tracheostomy, gastrostomy, and inability to return to his baseline with progressive loss of function. The patient's brother and sister are in agreement to proceed with surgical intervention and informed consent was obtained by the patient's brother , who is present at the bedside. The patient's brother understood that the patient's condition may not improve, in fact, may get worse after surgery and that he may require additional procedures in the future and that operative plan may be modified according to intraoperative findings and conditions and that the patient may require prolonged ICU stay, prolonged rehabilitation and prolonged hospitalization with possible need for tracheotomy, gastrostomy or other supportive measures. The patient's brother understood that evacuation of the subdural hematoma may not be possible and hematoma may reaccumulate acutely or in a delayed fashion requiring further surgical interventions. They also understand the possibility of intraoperative and possibility of loss of function with major neurological deficits and disability. They understand that the patient may require craniotomy or a craniectomy. The patient was started on seizure prophylaxis by the emergency room team and labs and type and cross was requested. We will proceed with emergency surgical intervention and the patient will be admitted by the ICU team and further workup may be needed by the emergency room or the ICU team to exclude any other additional injuries. Thank you very much for allowing us to participate in the care of this patient. Please do not hesitate to contact our office in case if you any further questions or concerns regarding the care of this patient. [id number]/[facility] #: [id number] NICOLE
[2019-04-01] MEDS ORDERED: Midazolam* 1 MG/ML 2 ML VIAL (2 MG) ONE (00:40)
[2019-04-01] MEDS ORDERED: Sugammadex * 200 MG/2 ML VIAL IV PUSH ONE (00:42)
[2019-04-01] MEDS ORDERED: fentaNYL* 50 MCG/ML 2 ML VIAL (100 MCG VIAL) IV PRN (00:44)
[2019-04-01] MEDS ORDERED: Naloxone* 0.4 MG/ML 1 ML VIAL IV PRN (00:44)
[2019-04-01] MEDS ORDERED: DiMENhydriNATE IV* 50 MG/ML VIAL IV PUSH PRN (00:44)
[2019-04-01] MEDS ORDERED: PROCHLORPERAZINE INJ 5 MG/ML 2 ML VIAL IV PRN (00:44)
[2019-04-01] MEDS ORDERED: HYDROmorphone INJ1* 1 MG/ML SYRINGE IV PRN (00:44)
[2019-04-01] MEDS ORDERED: Labetalol IV* 5 MG/ML 20 ML VIAL IV PUSH PRN (00:45)
[2019-04-01] MEDS ORDERED: Labetalol IV* 5 MG/ML 20 ML VIAL ONE (00:54)
[2019-04-01] MEDS ORDERED: Metoprolol Tartrate IV* 1 MG/ML 5 ML VIAL ONE (00:54)
[2019-04-01] MEDS ORDERED: Ondansetron INJ* 2 MG/ML VIAL IV PRN (01:50)
[2019-04-01] MEDS ORDERED: HYDROcodone/ACETAMIN 5-325 MG* 1 TAB PO PRN (01:50)
[2019-04-01] MEDS ORDERED: Magnesium Hydroxide LIQ* 30 ML UDC PO PRN (01:50)
[2019-04-01] MEDS ORDERED: Morphine INJ* 2 MG/ML 1 ML SYRINGE (TWO MG - NEW SYRINGE VERSION) IV PRN (01:56)
--- NOTE | 2019-04-01 02:26 | ADMNOTE ---
Subjective Interval History: this is my H/P 64 y/o M with hx of HTN and alcohol abuse was brought in to the emergency room after being found to have change in mental status, right sided-weakness and slurred speech. He was last known well the day prior. Pt also has a hx of subdural hemtoma from only weeks ago from a fall. He was treated at [facility]. New Head CT showed subdural fluid collection with acute subdural hematoma measuring 3 cm thickness and new effacement of left cerebral sulci and there is new significant midline shift to the right measuring a maximum of 1.4 cm. He lives alone, no one is sure what happened. Family said he has hx of alcohol abuse. Neurosurgery took the pt to the OR for evacuation of the subdural hematoma. Family History: Unchanged from Admission Social History: Unchanged from Admission Past Medical History: Unchanged from Admission Review of Systems - Measurements Intake and Output: Intake and Output Last 24 Hours 03/29/19 03/30/19 03/31/19 04/01/19 06:59 06:59 06:59 06:59 Intake Total 200 Balance 200 Weight 160 lb Intake: IV Fluids 200 NS 100ML, Cefazolin 2G 100 - Review of Systems General Comments: unable to be obtained. He is postop, likely still sedated Objective Active Medications: Acetaminophen (Tylenol Tab*) 650 mg PO Q4H PRN PRN Reason: MILD PAIN or TEMP > 100.4 Hydrocodone Bitart/Acetaminophen ([place] 5-325 Tab*) 1 tab PO Q4H PRN PRN Reason: moderate pain Hydrocodone Bitart/Acetaminophen ([place] 5-325 Tab*) 2 tab PO Q4H PRN PRN Reason: PAIN - SEVERE Dimenhydrinate (Dramamine Iv*) 12.5 mg IV PUSH ONCE PRN PRN Reason: NAUSEA/VOMITING Fentanyl Citrate (Fentanyl*) 50 mcg IV Q5M PRN PRN Reason: PAIN - MODERATE Hydromorphone HCl (Dilaudid Inj1s*) 0.2 mg IV Q5M PRN PRN Reason: PAIN - SEVERE Levetiracetam (Keppra Iv Premix*) 500 mg in 100 mls @ 400 mls/hr IV Q12H BRAD Stop: 04/09/19 00:00 Nicardipine/Sodium Chloride (Cardene 0.1mg/Ml Ivpremix*) 20 mg in 200 mls @ 0 mls/hr IV .INITIAL RATE BRAD; Protocol Labetalol HCl (Trandate Iv*) 10 mg IV PUSH Q10M PRN PRN Reason: BLOOD PRESSURE Magnesium Hydroxide (Milk Of Magnesia Liq*) 30 ml PO DAILY PRN PRN Reason: CONSTIPATION Morphine Sulfate (Morphine Inj (Syringe))*) 2 mg IV Q2H PRN PRN Reason: PAIN - SEVERE Naloxone HCl (Narcan*) 0.08 mg IV Q2M PRN PRN Reason: severe induced resp depression Ondansetron HCl (Zofran Inj*) 4 mg IV Q6H PRN PRN Reason: NAUSEA/VOMITING Prochlorperazine Edisylate (Compazine Inj*) 5 mg IV ONCE PRN PRN Reason: NAUSEA/VOMITING Vital Signs - 8 hr 03/31/19 03/31/19 03/31/19 18:26 18:31 18:34 Temperature 97.9 F Pulse Rate 49 49 52 Respiratory 15 15 18 Rate Blood Pressure 118/112 186/112 (mmHg) O2 Sat by Pulse 96 96 96 Oximetry 03/31/19 03/31/19 03/31/19 19:00 19:06 19:32 Temperature Pulse Rate 49 48 52 Respiratory 15 15 16 Rate Blood Pressure 187/103 185/125 (mmHg) O2 Sat by Pulse 99 96 98 Oximetry 03/31/19 03/31/19 03/31/19 20:00 20:12 20:45 Temperature 98.6 F Pulse Rate 48 49 65 Respiratory 17 17 16 Rate Blood Pressure 182/116 182/116 (mmHg) O2 Sat by Pulse 97 99 96 Oximetry 04/01/19 04/01/19 04/01/19 01:30 01:33 01:35 Temperature 98.1 F Pulse Rate 57 59 Respiratory 16 10 14 Rate Blood Pressure 106/73 104/66 (mmHg) O2 Sat by Pulse 100 100 Oximetry 04/01/19 04/01/19 04/01/19 01:40 01:45 01:50 Temperature 96.8 F Pulse Rate 57 53 60 Respiratory 16 13 14 Rate Blood Pressure 110/65 109/70 114/70 (mmHg) O2 Sat by Pulse 100 99 100 Oximetry 04/01/19 01:55 Temperature Pulse Rate 54 Respiratory 14 Rate Blood Pressure 113/69 (mmHg) O2 Sat by Pulse 100 Oximetry Oxygen Devices in Use Now: Simple Face Mask Appearance: sedated, neck collar Eyes: No Scleral Icterus, PERRLA Ears/Nose/Mouth/Throat: Mucous Membranes Moist Respiratory: Symmetrical Chest Expansion and Respiratory Effort, Clear to Auscultation Cardiovascular: NL Sounds; No Murmurs; No JVD, No Edema Abdominal: NL Sounds; No Tenderness; No Distention Extremities: No Edema, No Clubbing, Cyanosis Skin: No Rash or Ulcers Neurological: - - unable to assess, but presented with aphasia and right hemiparesis Result Diagrams: 04/01/19 03:20 04/01/19 03:20 Assess/Plan/Problems-Billing Assessment: - Patient Problems (1) Subdural hematoma Current Visit: Yes Status: Acute Code(s): S06.5X9A - TRAUM SUBDR HEM W LOC OF UNSP DURATION, INIT SNOMED Code(s): 364080185 Comment: hx of alcohol abuse, likely traumatic. Pt last known well the day prior. he was found with right sided hemiparesis, AMS and aphasia Taken to the OR for evacuation of subdural hematoma Neurosurgery on board managing Keeping blood pressure < 140/90, nicardipine ordered Na goal 140-150, 138 right now is okay. Will check BMP Q8hrs (2) Full code status Current Visit: Yes Status: Acute Code(s): Z78.9 - OTHER SPECIFIED HEALTH STATUS SNOMED Code(s): 990816312 (3) DVT prophylaxis Current Visit: Yes Status: Acute Code(s): Z29.9 - ENCOUNTER FOR PROPHYLACTIC MEASURES, UNSPECIFIED SNOMED Code(s): 193533544 Comment: SCDs (4) Alcohol abuse Current Visit: Yes Status: Acute Code(s): F10.10 - ALCOHOL ABUSE, UNCOMPLICATED SNOMED Code(s): 46565242 Comment: serum level was low on presentation
[2019-04-01 03:33] LABS: ABS Lymphocytes 0.3 10^3/ul (1.0-4.8); ABS Monocytes 0.1 10^3/ul (0-0.8); ABS Neutrophils 6.8 10^3/ul (1.5-7.7); Eosinophil % 0.1 %; Hematocrit 34 % (42-52); Hemoglobin 11.3 g/dL (14.0-18.0); Lymphocyte % 4.3 %; Mean Corpuscular HGB Conc 33 g/dL (31-36); Mean Corpuscular Hemoglobin 30 pg (27-31); Mean Corpuscular Volume 88 fL (80-94); Mean Platelet Volume 8.4 fL (7.4-10.4); Platelet Count 302 10^3/uL (150-450); Red Blood Count 3.85 10^6 /uL (4.18-5.48); Red Cell Distribution Width 15 % (10-15); White Blood Count 7.2 10^3/uL (3.5-10.8)
[2019-04-01 03:39] LABS: Albumin 3.2 g/dL (3.2-5.2); Magnesium 1.5 mg/dL (1.9-2.7); Potassium 3.5 mmol/L (3.5-5.0); Total Bilirubin 0.4 mg/dL (0.2-1.0)
[2019-04-01 03:45] LABS: Albumin/Globulin Ratio 0.8 (1-3); BUN/Creatinine Ratio 13.8 (8-20); EGFR African American 118.5 (>60); Globulin 3.8 g/dL (2-4)
[2019-04-01] MEDS: levETIRAcetam 500 MG IVPREMIX* 500 MG/100 ML BAG IV SCH ×2 (04:00→15:19)
[2019-04-01] MEDS ORDERED: Magnesium Sulfate 1 GM IV* 1 GM/100 ML BAG IV ONE (05:19)
[2019-04-01] MEDS: niCARdipine 0.1MG/ML IVPREMIX* 20 MG/200 ML BAG IV SCH ×9 (05:23→19:17)
[2019-04-01] MEDS ORDERED: Thiamine IV 100 MG, Folic Acid IV* 1 MG, Multiple Vitamin IV ADULT* 10 ML in NS 0.9% 10... IV ONE (09:15)
--- NOTE | 2019-04-01 09:15 | PN ---
Date of Service: 04/01/19 - consultation Critical Care Services: 64 y.o male with a hx of prevous subdural hematoma, alchol abuse admitted with Right sided weakness and was found to have a large subdrual on the left with 1.4cm midline shift he is s/p burrhole evacuation. He is alert and awake however he is not fully oriented Cardene gtt, c collar and burrhole drains x [address] Vital Signs: Temp Pulse Resp BP SpO2 FiO2 97.6 F 68 6 144/83 93 04/01/19 06:50 04/01/19 08:12 04/01/19 08:12 04/01/19 05:30 04/01/19 08:12 Physical Exam: Gen: Awake alert and not fully oriented; c collar HEENT: perrla nc left sided dale hole with 2 drains Lungs: cta-b no wheezing and no rhonchi Cardiac: s1s2 rrr no murmurs and no rubs Abdomen: soft nt/nd bs+ no guarding and no rebound tenderness Extremities: no edema. Neuro: AA and no fully oriented; i do not observe a facial droop. Cannot raise right arm. He raised the left arm against gravity He can wiggle both toes however he is not lifting up his feet. Fluid Balance (Past 24 Hours): I= O= Net Intake & Output 03/30/19 03/31/19 04/01/19 04/02/19 06:59 06:59 06:59 06:59 Intake Total 300 Output Total 650 95 Balance -350 -95 Weight 158 lb 11.725 oz 158 lb 11.725 oz Intake: IV Fluids 200 NS 100ML, Cefazolin 2G 100 IVPB 100 NS (0.9%) 100 Oral 0 Output: BRENDA #1 250 15 Cranial Drain 0 Waters 400 80 Labs: Laboratory Results - last 24 hr 03/31/19 03/31/19 03/31/19 19:39 19:39 19:39 WBC 4.7 RBC 4.30 Hgb 12.9 L Hct 38 L MCV 89 MCH 30 MCHC 34 RDW 15 Plt Count 371 MPV 8.5 Neut % (Auto) 64.6 Lymph % (Auto) 17.2 [place] % (Auto) 11.4 Eos % (Auto) 4.8 Baso % (Auto) 2.0 Absolute Neuts (auto) 3.1 Absolute Lymphs (auto) 0.8 L Absolute Monos (auto) 0.5 Absolute Eos (auto) 0.2 Absolute Basos (auto) 0.1 Absolute Nucleated RBC 0.0 Nucleated RBC % 0.0 INR (Anticoag Therapy) 1.13 H APTT 29.9 Sodium 138 Potassium TNP Chloride 104 Carbon Dioxide 26 Anion Gap 8 BUN 11 Creatinine 0.70 Est GFR ( Amer) 138.3 Est GFR (Non-Af Amer) 114.3 BUN/Creatinine Ratio 15.7 Glucose 89 POC Glucose (mg/dL) Lactic Acid Calcium 10.7 H Magnesium Total Bilirubin 0.60 AST TNP ALT 15 Alkaline Phosphatase 68 Troponin I 0.01 Total Protein 8.7 Albumin 4.0 Globulin 4.7 H Albumin/Globulin Ratio 0.9 L Triglycerides 92 Cholesterol 220 LDL Cholesterol 160 HDL Cholesterol 41.6 Serum Alcohol < 10 Blood Type Antibody Screen Crossmatch 03/31/19 03/31/19 03/31/19 19:39 19:39 21:25 WBC RBC Hgb Hct MCV MCH MCHC RDW Plt Count MPV Neut % (Auto) Lymph % (Auto) [place] % (Auto) Eos % (Auto) Baso % (Auto) Absolute Neuts (auto) Absolute Lymphs (auto) Absolute Monos (auto) Absolute Eos (auto) Absolute Basos (auto) Absolute Nucleated RBC Nucleated RBC % INR (Anticoag Therapy) APTT Sodium Potassium Chloride Carbon Dioxide Anion Gap BUN Creatinine Est GFR ( Amer) Est GFR (Non-Af Amer) BUN/Creatinine Ratio Glucose POC Glucose (mg/dL) Lactic Acid 1.2 Calcium Magnesium Total Bilirubin AST ALT Alkaline Phosphatase Troponin I Total Protein Albumin Globulin Albumin/Globulin Ratio Triglycerides Cholesterol LDL Cholesterol HDL Cholesterol Serum Alcohol Blood Type O Positive O Positive Antibody Screen Negative Crossmatch See Detail 04/01/19 04/01/19 04/01/19 02:30 03:20 03:20 WBC 7.2 RBC 3.85 L Hgb 11.3 L Hct 34 L MCV 88 MCH 30 MCHC 33 RDW 15 Plt Count 302 MPV 8.4 Neut % (Auto) 93.9 Lymph % (Auto) 4.3 [place] % (Auto) 1.2 Eos % (Auto) 0.1 Baso % (Auto) 0.5 Absolute Neuts (auto) 6.8 Absolute Lymphs (auto) 0.3 L Absolute Monos (auto) 0.1 Absolute Eos (auto) 0.0 Absolute Basos (auto) 0.0 Absolute Nucleated RBC 0.0 Nucleated RBC % 0.0 INR (Anticoag Therapy) APTT Sodium 138 Potassium 3.5 Chloride 109 Carbon Dioxide 21 L Anion Gap 8 BUN 11 Creatinine 0.80 Est GFR ( Amer) 118.5 Est GFR (Non-Af Amer) 98.0 BUN/Creatinine Ratio 13.8 Glucose 121 H POC Glucose (mg/dL) 137 H Lactic Acid Calcium 9.0 Magnesium 1.5 L Total Bilirubin 0.40 AST 21 ALT 12 Alkaline Phosphatase 55 Troponin I Total Protein 7.0 Albumin 3.2 Globulin 3.8 Albumin/Globulin Ratio 0.8 L Triglycerides Cholesterol LDL Cholesterol HDL Cholesterol Serum Alcohol Blood Type Antibody Screen Crossmatch Impression: Assessment: 1. Traumatic Left sided Subdural hematoma s/p dale hole evacuation 1.4cm midline shift 2. hx of alcohol abuse 3. Essential htn 4. Rib fx Plan: Critical Care Time: -Neurocheck q1 hour intially and then per neurosurgery -sbp <140 maintain cardene gtt; when he passes a speech evaluation oral bp meds can be started -avoid antiplatlet agents, chemical dvt ppx when ok per neurosurgery -WAm assessment and banana bag to continue; blood alcohol level was negative on admission -Repeat Head CT if neuro changes -Monitor drainage for subdural drains -Incentive spirometry Tylenol for pain control -Try best to avoid and sedatives so as to not change the neuro exam The patient requires intensive medical decision making to prevent adverse outcomes The ccm time is 32 mintues.
[2019-04-01] MEDS: Thiamine IV 100 MG, Folic Acid IV* 1 MG, Multiple Vitamin IV ADULT* 10 ML in NS 0.9% 10... IV SCH (09:54)
--- NOTE | 2019-04-01 10:11 | OP ---
DATE OF OPERATION: 04/01/19 - ROOM #ICU-06 DATE OF : 59 SURGEON: Lexie Daniel MD. ANESTHESIA: General. PRE-OP DIAGNOSIS: Left subdural hematoma. POST-OP DIAGNOSIS: Left subdural hematoma. OPERATIVE PROCEDURE: The patient underwent left frontotemporal-parietal craniotomy for evacuation of the subdural hematoma. ESTIMATED BLOOD LOSS: 150 cc. COMPLICATIONS: None. SUMMARY: The patient is a very pleasant 64-year-old gentleman with a history of alcohol abuse and hypertension, who was diagnosed recently with subdural hematoma and was treated in [facility]. The patient was found to have altered mental status with aphasia and right hemiparesis. The CT scan revealed mixed density large left frontotemporal-parietal subdural hematoma. After explaining the expectations, limitations, and possible complications of the procedure to the patient's family including his brother and his sister with his brother present at the bedside and his sister on the phone with complications including, but not limited to, bleeding, infection, risk of injury to adjacent structures, coma, paralysis, , need for additional procedures, anesthesia risks, stroke, blindness, inability to remove the hematoma, re-accumulation of the subdural hematoma, need for tracheostomy or gastrostomy, need for prolonged ICU stay, prolonged rehabilitation, prolonged hospitalization, loss of neurological function, anesthesia risks, the patient's family agreed with surgical intervention and informed consent was obtained. The patient was offered the option of subdural hematoma evacuation. The patient 's family understood that the patient's condition may not improve and in fact may get worse after surgery and that he may require additional procedures in the future. He also understood that operative plan would be modified according to the intraoperative findings and conditions, and that the procedure may be abandoned or done in more than one stage. The patient's family understood that the patient may require prolonged hospitalization, prolonged ICU stay, prolonged rehabilitation, and possible tracheostomy, gastrotomy, and prolonged ventilation. DESCRIPTION OF PROCEDURE: The patient was brought to the operating room and was placed under general anesthesia by the anesthesia team. He was carefully positioned supine on the operative table and all bony prominences were meticulously padded. His left shoulder was elevated with a shoulder bump and his head was placed at doughnut gel head of english. Attention was paid to maintain neutral position of the cervical spine at all times. His hair was removed with surgical clippers and his skin was prepped and draped in the standard fashion. A reverse question-thao incision was marked on the skin and after infiltrating the skin with local anesthetic, a #10 surgical blade was used to incise the skin. The incision was carried down to the periosteum with the use of Bovie cautery and David clips were applied to secure hemostasis. The musculocutaneous flap was then gently elevated with the use of periosteal elevators and Bovie cautery, and it was gently rolled anteriorly over a small folded gauze. This was secured with long hooks. A high-speed drill was used to perform several bur holes and the side- cutting craniotome was used in order to connect them and fashion a left frontotemporal- parietal craniotomy. The edges of the bone were carefully waxed as well as Surgiflow was placed at the epidural space. Tenting suture holes were made with the fine tip high speed drill. The dura was then secured with dural tenting sutures with 4-0 Nurolon. The dura was then gently opened with a #15 surgical blade and Metzenbaum scissors in a curvilinear fashion. A significant amount of subdural collection of acute and chronic hematoma was then found. This was gently evacuated with gentle suction and copious irrigation, significant amount of pseudomembranes were identified and they were carefully coagulated and fenestrated. After copious irrigation and meticulous inspection, and confirmation of meticulous hemostasis, the subdural hematoma had been found to be completely evacuated, and the brain was found to be pulsating nicely. A Davonte subdural drain was then placed and tunneled through a separate stab wound incision. The dura was then approximated with interrupted and running 4-0 Nurolon sutures, two dural tenting sutures were placed in the middle of the craniotomy. Two suture holes were placed in the middle of the bone flap in order to serve as dural tenting sutures. The bone flap was then secured with titanium dale hole covers and titanium screws. After copious irrigation, confirmation of meticulous hemostasis , and meticulous inspection, the long hook retractors were gently removed and the flap was repositioned in place. A second Davonte drain was placed and tunneled through a separate wound incision. The wound was closed by layers with 2-0 interrupted Vicryl sutures to approximate the subcutaneous tissue as well as temporalis fascia. The skin was then approximated with shani and the skin was covered with sterile dressings. The patient remained hemodynamically stable throughout the case. At the end of the procedure, all counts were reported to be correct. The patient was then extubated and was transferred to Recovery in excellent condition. [id number]/[facility] #: [id number] MTDD
--- NOTE | 2019-04-01 17:58 | PN ---
Progress Note - Progress Note Date of Service: 04/01/19 SOAP: Subjective: []No events ON. Tolerated procedure well yesterday. Waters. Objective: []VSS, Afebrile. Wound s,c,d Subdural and subgaleal drain output noted. AAOx1, mixed aphasia. Intermittently follows commands. JOSE, EOM WNLs Face symmetric, Tongue midline. Motor 5/5 left side, 4/5 Rt side Sensory difficult to assess. Grimaces to pain to all extremities MJ collar. Free ROM cspine. Assessment: []64 yom, hx of HTN, ETOH abuse, POD#1 Left FTP craniotomy for SDH evacuation. Plan: []Monitor VS, Neurochecks Bed rest for now, HOB 30' Monitor drain output. CT brain revealed postoperative changes with significant improvement of mass effect and midline shift. Continue SZ prophylaxis Maintain SBP < 140 Advance diet as tolerated. CT in 2 days if neuroexam stable. Monitor Na level, avoid hypoNa. On ETOH protocol. F/E XR of cervical spine. Appreciate ICU care. Skip Daniel MD
[2019-04-01 20:01] LABS: BUN/Creatinine Ratio 14.3 (8-20); Calcium 9.2 mg/dL (8.6-10.3); EGFR African American 156.1 (>60); Potassium 3.2 mmol/L (3.5-5.0)
[2019-04-01] MEDS: amLODIPine TAB* 5 MG PO SCH (20:47)
[2019-04-02] MEDS: [UNRECOGNIZED DRUG - OTHER] IVPB SCH ×20 (01:09→17:35)
[2019-04-02] MEDS: NICARDIPINE IVPB SCH ×20 (01:09→17:35)
[2019-04-02] MEDS: levETIRAcetam 500 MG IVPREMIX* 500 MG/100 ML BAG IV SCH ×2 (02:35→15:29)
[2019-04-02] MEDS ORDERED: NS 0.9% 250 ML* 250 ML ONE (02:45)
[2019-04-02] MEDS ORDERED: niCARdipine 0.1MG/ML IVPREMIX* 20 MG/200 ML BAG IV ONE (02:46)
[2019-04-02 06:43] LABS: Calcium 9.7 mg/dL (8.6-10.3); EGFR African American 168.4 (>60); EGFR Non-African American 139.2 (>60); Potassium 3.2 mmol/L (3.5-5.0)
[2019-04-02 07:15] LABS: BUN/Creatinine Ratio 10.2 (8-20)
[2019-04-02] MEDS: amLODIPine TAB* 5 MG PO SCH (09:15)
--- NOTE | 2019-04-02 11:20 | PN ---
Progress Note - Progress Note Date of Service: 04/02/19 SOAP: Subjective: [] No events ON. Tolerates PO. Voids. MJ collar on. Objective: [] VSS, Afebrile. Wound s,c,d Subdural and subgaleal drain output noted. AAOx1-2, mixed aphasia. Follows commands. JOSE, EOM WNLs Face symmetric, Tongue midline. Motor 5/5 left side, 4+/5 Rt side Sensory difficult to assess. Grimaces to pain to all extremities. MJ collar. Free ROM cspine. Assessment: []64 yom, hx of HTN, ETOH abuse, POD#2 Left FTP craniotomy for SDH evacuation. Plan: [] Monitor VS, Neurochecks Bed rest for now, HOB 30' Monitor drain output. CT brain in am. Continue SZ prophylaxis Maintain SBP < 140 Diet as tolerated. Monitor Na level, avoid hypoNa. On ETOH protocol. F/E XR reveal no instability, but exam limited. Discussed with Dr Alicia. Repeat F/E XR of cervical spine this am. Appreciate ICU care. Skip Daniel MD
[2019-04-02] MEDS: Thiamine IV 100 MG, Folic Acid IV* 1 MG, Multiple Vitamin IV ADULT* 10 ML in NS 0.9% 10... IV SCH (12:47)
--- NOTE | 2019-04-02 17:23 | PN ---
Date of Service: 04/02/19 Critical Care Services: Patient c/o headache and pain at the drain site. He is concerned about his apartment and wants to get out of the hospital. His sister reports that he has developmental delay. He denies chest pain, shortness of breath, abdominal pain, or nausea. Afebrile. Requiring nicardipine gtt to keep SBP <140. Vital Signs: Temp Pulse Resp BP SpO2 FiO2 99.3 F 76 14 139/90 94 04/02/19 12:00 04/02/19 15:15 04/02/19 15:15 04/02/19 13:33 04/02/19 15:15 Physical Exam: Gen: No acute distress. HEENT: Normocephalic. Drain and clean dressings in place. Pupils equal, no scleral icterus. Moist mucous membranes. C collar in place. Lungs: Clear to auscultation Cardiac: RRR Abdomen: Soft, nontender, nondistended. Extremities: Palpable PT pulses b/l. No pedal edema. Skin: Warm and dry. Neuro: Awake and alert. Oriented to person and time only. Moves all extremities symmetrically. No facial droop. Normal strength in BLE and BUE. Fluid Balance (Past 24 Hours): I= O= Net +1.8L /24h Intake & Output 03/31/19 04/01/19 04/02/19 04/03/19 06:59 06:59 06:59 06:59 Intake Total 300 3922 365 Output Total 650 2070 855 Balance -350 1852 -490 Weight 158 lb 11.725 oz 159 lb 6.307 oz Intake: IV Fluids 200 787 Banana Bag 667 Keppra 120 NS 100ML, Cefazolin 2G 100 IVPB 100 106 Keppra 106 NS (0.9%) 100 Medicated IV 2844 290 CC - Nicarpidine/Cardene 2844 290 Oral 0 150 75 Waters Irrigate Amount 35 Output: BRENDA #1 250 310 Cranial Drain 0 195 55 Urine 1150 800 Waters 400 415 Other: Estimated Void Medium Labs: Laboratory Results - last 24 hr 04/01/19 04/02/19 19:02 06:00 Sodium 138 138 Potassium 3.2 L 3.2 L Chloride 112 H 110 Carbon Dioxide 18 L 21 L Anion Gap 8 7 BUN 9 6 Creatinine 0.63 L 0.59 L Est GFR ( Amer) 156.1 168.4 Est GFR (Non-Af Amer) 129.0 139.2 BUN/Creatinine Ratio 14.3 10.2 Glucose 115 H 98 Calcium 9.2 9.7 Nutrition: Pureed regular diet Impression: 64M with traumatic L SDH and midline shift s/p dale hole for hematoma evacuation Traumatic L SDH R rib fx H/o alcohol abuse Essential HTN Plan: Neuro: Neuro deficits appear to have resolved. Continue Keppra for seizure ppx. Lortab prn for pain. Continue neurochecks q1h Repeat CT head tomorrow morning. Continue Iron J collar. Flex/extension XR today. Monitor for alcohol withdrawal. Continue thiamine. CV: Wean off nicardipine. Continue amlodipine 10 mg. Start hydralazine prn for SBP < 140. D/c arterial line. No antiplatelet agents due to SDH Respiratory: Titrate FiO2 to maintain O2 >90%. On room air GI: Pureed regular diet. GI ppx- not indicated. Renal: Strict I&Os. ID: Afebrile and normal WBC. No abx. Heme: H&H stable. DVT ppx: SCDs only due to SDH. Endo: Monitor blood glucose. Insulin sliding scale if BG >200. MSK: Bedrest. Wounds: None Code Status: Full Status: Guarded Dispo: ICU for close hemodynamic and neuro monitoring Critical Care Time: 30 min
[2019-04-02 20:55] LABS: BUN/Creatinine Ratio 6.9 (8-20); Calcium 10.3 mg/dL (8.6-10.3); EGFR African American 171.8 (>60); Potassium 3.2 mmol/L (3.5-5.0)
[2019-04-02] MEDS: hydrALAZINE IV* 20 MG/ML VIAL IV SLOW PU PRN (23:53)
[2019-04-03] MEDS: levETIRAcetam 500 MG IVPREMIX* 500 MG/100 ML BAG IV SCH ×2 (03:31→15:38)
[2019-04-03 05:18] LABS: BUN/Creatinine Ratio 7.5 (8-20); Calcium 10.2 mg/dL (8.6-10.3); EGFR African American 190.6 (>60); EGFR Non-African American 157.5 (>60)
[2019-04-03] MEDS: amLODIPine TAB* 5 MG PO SCH (07:41)
[2019-04-03] MEDS: hydrALAZINE IV* 20 MG/ML VIAL IV SLOW PU PRN ×2 (08:19→18:11)
[2019-04-03] MEDS: Thiamine IV 100 MG, Folic Acid IV* 1 MG, Multiple Vitamin IV ADULT* 10 ML in NS 0.9% 10... IV SCH (10:04)
[2019-04-03] MEDS: HYDROcodone/ACETAMIN 5-325 MG* 1 TAB PO PRN (11:23)
[2019-04-03] MEDS ORDERED: Potassium Chlor TAB* 20 MEQ TAB.ER PO ONE (12:01)
[2019-04-03] MEDS ORDERED: Magnesium Sulfate 2 GM IV* 2 GM/50 ML BAG IVPB ONE (12:03)
--- NOTE | 2019-04-03 12:10 | PN ---
Date of Service: 04/03/19 Critical Care Services: No events overnight. CTH today is stable. Drain in place. Vital Signs: Temp Pulse Resp BP SpO2 FiO2 37.1 C 68 19 145/81 94 95 04/03/19 11:27 04/03/19 11:30 04/03/19 11:30 04/03/19 11:30 04/03/19 11:30 04/02 23:41 Physical Exam: Gen: Awake and appropriate HEENT: Dressing CDI, drain intact Lungs: clear Cardiac: S1S2 regular Abdomen: benign Extremities: no edema Neuro: grossly non-focal Fluid Balance (Past 24 Hours): I= O= Net Intake & Output 04/01/19 04/02/19 04/03/19 04/04/19 06:59 06:59 06:59 06:59 Intake Total 300 3922 1971 Output Total 650 2070 2935 270 Balance -350 1852 -964 -270 Weight 72 kg 72.3 kg 67.3 kg Intake: IV Fluids 937 068 8282 Banana Bag 667 1000 Keppra 120 25 NS 100ML, Cefazolin 2G 100 IVPB 100 106 101 Keppra 106 101 NS (0.9%) 100 Medicated IV 2844 290 CC - Nicarpidine/Cardene 2844 290 Oral 0 150 555 Waters Irrigate Amount 35 Output: BRENDA #1 250 310 90 10 Cranial Drain 0 195 245 20 Urine 1150 2600 240 Waters 400 415 Other: Estimated Void Large # Voids 1 Labs: Laboratory Results - last 24 hr 04/02/19 04/03/19 18:00 04:52 Sodium 136 136 Potassium 3.2 L 3.0 L Chloride 106 106 Carbon Dioxide 23 25 Anion Gap 7 5 BUN 4 L 4 L Creatinine 0.58 L 0.53 L Est GFR ( Amer) 171.8 190.6 Est GFR (Non-Af Amer) 142.0 157.5 BUN/Creatinine Ratio 6.9 L 7.5 L Glucose 108 H 95 Calcium 10.3 10.2 Studies: CTH stable from prior s/p SDH evacuation with drain in place Nutrition: Eating Impression: Stable POD#2 s/p craniotomy and evacuation left SDH. Plan: SDH - s/p evacuation, drain in place, likely will come out today. CTH stable. Keppra on board. Pain controlled PO. DC parenteral narcs. ETOH - at risk for withdrawal, no evidence as yet apart from his HTN but no associated agitation or sig tachycardia. HTN - on norvasc with PRNs available. Let's see how his control looks, pain may be in play, may ultimately need another agent. Hypokalemia and Hypomagnesemia - repleting. As I'm writing drains are now being removed by Dr. Daniel. Hold in ICU overnight per his recommendation.
--- NOTE | 2019-04-03 12:54 | PN ---
Progress Note - Progress Note Date of Service: 04/03/19 SOAP: Subjective: []No events ON. Tolerates PO. Voids. MJ collar removed yesterday. Objective: [] VSS, Afebrile. Wound s,c,d Subdural and subgaleal drain output noted. Drains removed. Catheters appeared to be intact. No complications. Patient tolerated procedure well. AAOx2, mixed aphasia improved. Follows commands. JOSE, EOM WNLs Face symmetric, Tongue midline. Motor 5/5 left side, 4-5/5 Rt side. Mild right pronator drift. Sensory difficult to assess. Grimaces to pain to all extremities. Assessment: [] 64 yom, hx of HTN, ETOH abuse, POD#3 Left FTP craniotomy for SDH evacuation. Plan: [] Monitor VS, Neurochecks May be out of bed to a chair with assistance., HOB 30' while at bed. Repeat F/E XR revealed no instability, MJ collar discontinued. CT brain this am reveals improved mass effect, improved edema. Continue SZ prophylaxis Maintain SBP < 140 Diet as tolerated. Monitor Na level, avoid hypoNa. On ETOH protocol. Repeat CT in am, if stable may transfer to floor. DC planning, PT. Appreciate ICU care. Skip Daniel MD
[2019-04-03] MEDS: Acetaminophen TAB* 325 MG PO PRN (17:40)
[2019-04-04] MEDS: Acetaminophen TAB* 325 MG PO PRN (02:37)
[2019-04-04] MEDS: levETIRAcetam 500 MG IVPREMIX* 500 MG/100 ML BAG IV SCH ×2 (03:46→14:54)
--- NOTE | 2019-04-04 04:31 | PN ---
Progress Note - Progress Note Date of Service: 04/04/19 SOAP: Subjective: [] No events ON. Tolerates PO. Voids. Resting comfortably. Objective: []VSS, Afebrile. Wound s,c,d AAOx2, mixed aphasia improved. Follows commands. JOSE, EOM WNLs Face symmetric, Tongue midline. Motor 5/5 left side, 4-5/5 Rt side. Mild right pronator drift. Sensory grossly intact to light touch.. Assessment: []64 yom, hx of HTN, ETOH abuse, POD#4 Left FTP craniotomy for SDH evacuation. Plan: [] Monitor VS, Neurochecks. Continue SZ prophylaxis Maintain SBP < 140 Diet as tolerated. Monitor Na level, avoid hypoNa. On ETOH protocol. Repeat CT this am, if stable may transfer to floor. DC planning, PT. Appreciate ICU care. Skip Daniel MD
[2019-04-04 05:37] LABS: Calcium 10.1 mg/dL (8.6-10.3); EGFR African American 165.2 (>60); EGFR Non-African American 136.5 (>60); Magnesium 1.9 mg/dL (1.9-2.7); Phosphorus 2.3 mg/dL (2.5-5.0); Potassium 3.6 mmol/L (3.5-5.0)
[2019-04-04] MEDS: amLODIPine TAB* 5 MG PO SCH (09:24)
[2019-04-04] MEDS: Thiamine IV 100 MG, Folic Acid IV* 1 MG, Multiple Vitamin IV ADULT* 10 ML in NS 0.9% 10... IV SCH (09:47)
--- NOTE | 2019-04-04 09:54 | PN ---
Date of Service: 04/04/19 Critical Care Services: Patient seen and examined. No acute overnight events. Patient feeling well. OOB to chair, working with PT. No complaints of headache, no dizziness, no blurred vision, no n/v. Tolerating meal this morning. VS stable overnight. Vital Signs: Temp Pulse Resp BP SpO2 FiO2 101.6 F 60 19 146/75 95 95 04/04/19 03:16 04/04/19 09:00 04/04/19 09:15 04/04/19 09:00 04/04/19 09:00 04/02 23:41 Physical Exam: Gen: Alert, NAD HEENT: Dressings CDI, no hematomas, PERRLA Lungs: bilateral exp wheeze, good air entry bilaterally, no rhonchi or rales Cardiac: +S1S2, regular rate and rhythm Abdomen: Benign Extremities: No clubbing or edema Neuro: No focalities, grossly intact Fluid Balance (Past 24 Hours): Intake & Output 04/02/19 04/03/19 04/04/19 04/05/19 06:59 06:59 06:59 06:59 Intake Total 3922 1971 2812 Output Total 2070 2935 1380 Balance 1852 -964 1432 Weight 159 lb 6.307 oz 148 lb 5.938 oz 146 lb 14.4 oz Intake: IV Fluids 787 1025 2332 Banana Bag 667 1000 2010 Keppra 120 25 223 NS (0.9%) 39 mag 60 IVPB 106 101 Keppra 106 101 Medicated IV 2844 290 CC - Nicarpidine/Cardene 2844 290 Oral 150 555 480 Waters Irrigate Amount 35 Output: BRENDA #1 310 90 25 Cranial Drain 195 245 40 Urine 1150 2600 1315 Waters 415 Other: Estimated Void Large Large # Voids 1 1 Labs: Laboratory Results - last 24 hr 03/31/19 04/04/19 19:39 05:12 Sodium 133 L Potassium 3.6 Chloride 105 Carbon Dioxide 22 Anion Gap 6 BUN 6 Creatinine 0.60 L Est GFR ( Amer) 165.2 Est GFR (Non-Af Amer) 136.5 BUN/Creatinine Ratio 10.0 Glucose 98 Calcium 10.1 Phosphorus 2.3 L Magnesium 1.9 Crossmatch See Detail Studies: Patient Name: EDITA EMANUEL Medical Record#: [id number] Ordering Physician: Lexie Daniel MD Acct.#: [id number] : 1955 Age: 64 Sex: M Location: [facility] UNIT Exam Date: 04/03/19 0800 ADM Status: ADM IN Order Information: CT BRAIN WO Accession Number: [id number] CPT: 99959 ADDENDUM Correction: There is unchanged 3 mm rightward midline shift (not leftward). Primary team aware. <Electronically signed by Donn Alicia MD in OV>04/03/191204 Dictated by: Donn Alicia MD Dictated Date/Time:04/03/191201 Transcribed Date/Time: 04/03/191201 Copy to: Consuelo Elam MD; Adriana Spencer MD; Lexie Daniel MD INDICATION: Subdural hematoma. COMPARISON: April 01, [address] TECHNIQUE: Contiguous axial sections of the brain were obtained from the skull base to the vertex without contrast. FINDINGS: A left frontal craniotomy has been performed. A presumed surgical drain is seen deep to the craniotomy site. The 1.4 cm thick left convexity subdural collection is grossly unchanged. It also has an unchanged pattern of mixed attenuation. It exerts mild local mass effect on the left frontoparietal region. There is unchanged 3 mm left-to- right midline shift. The hinojosa-white matter differentiation is grossly maintained without abnormal cerebral edema. Periventricular hypoattenuation, without mass effect, is nonspecific. The ventricles are unchanged in size and configuration. The basal cisterns are patent. There is no abnormal extra axial collection. The globes and orbits are symmetric. The paranasal sinuses and mastoid air cells are predominantly well aerated. IMPRESSION: 1. The 1.4 cm residual left convexity subdural collection is grossly unchanged with a similar pattern of mixed attenuation. There is unchanged 3 mm leftward midline shift. 2. Postoperative changes as above. Nutrition: Regular diet Impression: This is a 64 year old male with hx of a fall with subdural hematoma after a fall treated at [email or web address] a few weeks ago that presented with acute change in mental status, now found to have new acute subdural hematoma with midline shift , unknown if new fall/cause. Diagnoses: 1. Acute SDH, POD#3, s/p Craniotomy and evacuation 2. Hx of ETOH abuse 3. HTN 4. Electrolyte Imbalances Plan: Neuro - POd# Craniotomy and evacuation with Dr. Daniel - Drains removed 04/03/2019 - Pending repeat CT this morning but repeats up to this point have been stable - Clinically stable - Continue keppra for seizure prevention - Primary POC as per neurosurgery - Change to PO thiamine and MVI supplements and DC banana bags - Does not appear to be in ETOH withdrawal, may need to be assessed for WAM if any changes noted CV - Continue telemetry Pulmonary - IS10x/hr while awake GI - Regular diet - Zofran PRN - Bowel regimen while on norco Renal - No current issues Endocrine - No current issues Musculoskeltal - OOB with PT/OT - Speech evals ID - No current issues DVT Prophy - SCDs Code Status - Full code Critical Care Time: 40 minutes, medically optimized for transfer to surgical floor
[2019-04-04] MEDS ORDERED: Acetaminophen TAB* 325 MG PO PRN (10:52)
[2019-04-04] MEDS ORDERED: LORazepam TAB(*) 1 MG PO SCH (11:00)
[2019-04-04] MEDS: Folic Acid TAB* 1 MG PO SCH (13:08)
[2019-04-04] MEDS: Thiamine TAB* 100 MG TAB PO SCH (13:08)
[2019-04-04] MEDS: Multivitamins/Minerals TAB PO SCH (13:08)
[2019-04-05] MEDS: levETIRAcetam 500 MG IVPREMIX* 500 MG/100 ML BAG IV SCH ×2 (03:09→14:52)
[2019-04-05 09:29] LABS: ABS Basophils 0.1 10^3/ul (0-0.2); ABS Eosinophils 0.1 10^3/ul (0-0.6); ABS Lymphocytes 1.1 10^3/ul (1.0-4.8); ABS Monocytes 0.7 10^3/ul (0-0.8); ABS Neutrophils 3.6 10^3/ul (1.5-7.7); Eosinophil % 2.1 %; Hematocrit 32 % (42-52); Hemoglobin 10.4 g/dL (14.0-18.0); Mean Corpuscular HGB Conc 33 g/dL (31-36); Mean Corpuscular Hemoglobin 29 pg (27-31); Mean Corpuscular Volume 88 fL (80-94); Platelet Count 362 10^3/uL (150-450); Red Blood Count 3.57 10^6 /uL (4.18-5.48); Red Cell Distribution Width 15 % (10-15); White Blood Count 5.6 10^3/uL (3.5-10.8)
[2019-04-05] MEDS: Folic Acid TAB* 1 MG PO SCH (09:32)
[2019-04-05] MEDS: Multivitamins/Minerals TAB PO SCH (09:33)
[2019-04-05] MEDS: amLODIPine TAB* 5 MG PO SCH (09:33)
[2019-04-05] MEDS: HYDROcodone/ACETAMIN 5-325 MG* 1 TAB PO PRN (09:33)
[2019-04-05] MEDS: Thiamine TAB* 100 MG TAB PO SCH (09:33)
[2019-04-05 09:45] LABS: BUN/Creatinine Ratio 8.6 (8-20); Calcium 9.9 mg/dL (8.6-10.3); EGFR African American 171.8 (>60); Phosphorus 3.2 mg/dL (2.5-5.0); Potassium 3.3 mmol/L (3.5-5.0)
[2019-04-05] MEDS: Potassium Chlor TAB* 20 MEQ TAB.ER PO SCH ×3 (10:30→14:52)
--- NOTE | 2019-04-05 17:16 | PN ---
Subjective Date of Service: 04/05/19 Interval History: Mr. Guzman denies headache, vision changes. The periorbital region is swollen, but patient reports his vision is still intact. He lives home alone, but his cousin plans to move in with him at discharge. He is eager for discharge and would like to go home vs [facility]. Family History: Unchanged from Admission Social History: Unchanged from Admission Past Medical History: Unchanged from Admission Objective Active Medications: Acetaminophen (Tylenol Tab*) 650 mg PO Q4H PRN PRN Reason: MILD PAIN or TEMP > 100.4 Last Admin: 04/04/19 02:37 Dose: 650 mg Hydrocodone Bitart/Acetaminophen (Tate 5-325 Tab*) 1 tab PO Q4H PRN PRN Reason: moderate pain Last Admin: 04/05/19 09:33 Dose: 1 tab Hydrocodone Bitart/Acetaminophen (Tate 5-325 Tab*) 2 tab PO Q4H PRN PRN Reason: PAIN - SEVERE Amlodipine Besylate (Norvasc Tab*) 10 mg PO DAILY [facility] Last Admin: 04/05/19 09:33 Dose: 10 mg Folic Acid (Folvite Tab*) 1 mg PO DAILY [facility] Last Admin: 04/05/19 09:32 Dose: 1 mg Hydralazine HCl (Apresoline Iv*) 5 mg IV SLOW PU Q6H PRN PRN Reason: SYSTOLIC BP GREATER THAN: Last Admin: 04/03/19 18:11 Dose: 5 mg Levetiracetam (Keppra Iv Premix*) 500 mg in 100 mls @ 400 mls/hr IV Q12H [facility] Stop: 04/09/19 00:00 Last Admin: 04/05/19 14:52 Dose: 400 mls/hr Lorazepam (Ativan Tab(*)) 0 - 6 mg PO .PER [place] PROTOCOL BRAD; Protocol Magnesium Hydroxide (Milk Of Magnesia Liq*) 30 ml PO DAILY PRN PRN Reason: CONSTIPATION Last Admin: 04/03/19 17:40 Dose: 30 ml Multivitamins/Minerals (Theragran/Minerals Tab*) 1 tab PO DAILY [facility] Last Admin: 04/05/19 09:33 Dose: 1 tab Ondansetron HCl (Zofran Inj*) 4 mg IV Q6H PRN PRN Reason: NAUSEA/VOMITING Thiamine HCl (Vitamin B-1 Tab*) 100 mg PO DAILY [facility] Last Admin: 04/05/19 09:33 Dose: 100 mg Vital Signs: Temp Pulse Resp BP Pulse Ox 99.3 F 63 18 127/85 100 04/05/19 15:40 04/05/19 15:40 04/05/19 15:40 04/05/19 15:40 04/05/19 15:40 Oxygen Devices in Use Now: None Appearance: Mr. Guzman is a middle-aged black man who is laying in bed on L side, sleeping; he wakes easily and appears to be in no acute distress. Eyes: No Scleral Icterus, PERRLA, - - head with CDI dressing in place to midline and L lateral; there is periorbital edema to the L side of the face Ears/Nose/Mouth/Throat: NL Teeth, Lips, Gums, Clear Oropharnyx, Mucous Membranes Moist, - - poor dentition Neck: NL Appearance and Movements; NL JVP, Trachea Midline Respiratory: Symmetrical Chest Expansion and Respiratory Effort, Clear to Auscultation Cardiovascular: NL Sounds; No Murmurs; No JVD, RRR, No Edema Abdominal: NL Sounds; No Tenderness; No Distention, No Hepatosplenomegaly Extremities: No Edema, No Clubbing, Cyanosis Neurological: Alert and Oriented x 3 Result Diagrams: 04/05/19 09:10 04/05/19 09:10 Microbiology and Other Data: Microbiology 04/01/19 03:58 Nasal Screen MRSA (PCR) - Final Nasal Mrsa Not Detected Assess/Plan/Problems-Billing Assessment: Mr. Guzman is a 64 yom with PMHx CAD, HTN, alcohol abuse who presented with SDH after sustaining a fall. - Patient Problems (1) Subdural hematoma Comment: -pt was found with right sided hemiparesis, AMS, aphasia, last known well the day prior -SDH likely traumatic -hx of alcohol abuse -taken to the OR for evacuation of subdural hematoma with drain placement 04/01 -drain removed 04/03 -neurosurgery managing; thank you for recommendations -continue Keppra for seizure ppx (2) Periorbital edema of left eye Comment: -suspect that this is dependent and due to laying on L side -encourage to sit upright -discussed with neurosurgery; no further recommendations (3) Hypertension Comment: -SBP 120-140's -continue amlodipine, hydralazine PRN (4) Alcohol abuse Comment: -serum level was low on presentation -continue thiamine, folic acid -SW involved in discharge planning (5) DVT prophylaxis Comment: -SCDs (6) Full code status Status and Disposition: Inpatient. Discharge when stable.
--- NOTE | 2019-04-05 23:29 | PN ---
Progress Note - Progress Note Date of Service: 04/05/19 SOAP: Subjective: []No events ON. Tolerates PO. Voids. Resting comfortably.Ambulates, Voids. Objective: [] VSS, Afebrile. Wound s,c,d AAOx2. Follows commands. JOSE, EOM WNLs Face symmetric, Tongue midline. Left periorbital edema Motor 5/5 left side, 4-5/5 Rt side. Mild right pronator drift. Sensory grossly intact to light touch. Assessment: []64 yom, hx of HTN, ETOH abuse, POD#5 Left FTP craniotomy for SDH evacuation. Plan: []Monitor VS, Neurochecks. Continue SZ prophylaxis CT stable. Maintain SBP < 140 Diet as tolerated. On ETOH protocol. DC planning, PT. Appreciate ICU care. Skip Daniel MD
[2019-04-06] MEDS: levETIRAcetam 500 MG IVPREMIX* 500 MG/100 ML BAG IV SCH ×2 (03:29→14:53)
[2019-04-06] MEDS: Thiamine TAB* 100 MG TAB PO SCH (07:58)
[2019-04-06] MEDS: Folic Acid TAB* 1 MG PO SCH (07:58)
[2019-04-06] MEDS: amLODIPine TAB* 5 MG PO SCH (07:58)
[2019-04-06] MEDS: Multivitamins/Minerals TAB PO SCH (07:58)
[2019-04-06 11:21] LABS: ABS Basophils 0.1 10^3/ul (0-0.2); ABS Eosinophils 0.2 10^3/ul (0-0.6); ABS Monocytes 1.1 10^3/ul (0-0.8); ABS Neutrophils 4.5 10^3/ul (1.5-7.7); Eosinophil % 2.6 %; Hematocrit 31 % (42-52); Hemoglobin 10.2 g/dL (14.0-18.0); Lymphocyte % 14.7 %; Mean Corpuscular HGB Conc 33 g/dL (31-36); Mean Corpuscular Hemoglobin 29 pg (27-31); Mean Corpuscular Volume 88 fL (80-94); Mean Platelet Volume 8.2 fL (7.4-10.4); Platelet Count 401 10^3/uL (150-450); Red Blood Count 3.48 10^6 /uL (4.18-5.48); Red Cell Distribution Width 14 % (10-15); White Blood Count 6.9 10^3/uL (3.5-10.8)
[2019-04-06 11:32] LABS: BUN/Creatinine Ratio 10.4 (8-20); Calcium 10.3 mg/dL (8.6-10.3); EGFR African American 145.4 (>60); EGFR Non-African American 120.2 (>60); Potassium 3.4 mmol/L (3.5-5.0)
[2019-04-06] MEDS ORDERED: NS 0.9% 1000 ML** 1,000 ML IV SCH (11:45)
[2019-04-06] MEDS: Potassium Chlor TAB* 20 MEQ TAB.ER PO SCH ×2 (12:24→14:42)
--- NOTE | 2019-04-06 14:43 | PN ---
Subjective Date of Service: 04/06/19 Interval History: Mr. Guzman is complaining or stomach pain; when asked where, he points to mid -sternal chest area. He states that "a lot of things hurt right now, but I'm just trying to deal with it." He appears agitated, frequently stating "I just have to get some rest" or "I gotta get out of here." At this time, he has difficulty with participating in interview process. Family History: Unchanged from Admission Social History: Unchanged from Admission Past Medical History: Unchanged from Admission Objective Active Medications: Acetaminophen (Tylenol Tab*) 650 mg PO Q4H PRN PRN Reason: MILD PAIN or TEMP > 100.4 Last Admin: 04/04/19 02:37 Dose: 650 mg Hydrocodone Bitart/Acetaminophen ([place] 5-325 Tab*) 1 tab PO Q4H PRN PRN Reason: moderate pain Last Admin: 04/05/19 09:33 Dose: 1 tab Hydrocodone Bitart/Acetaminophen ([place] 5-325 Tab*) 2 tab PO Q4H PRN PRN Reason: PAIN - SEVERE Amlodipine Besylate (Norvasc Tab*) 10 mg PO DAILY [facility] Last Admin: 04/06/19 07:58 Dose: 10 mg Folic Acid (Folvite Tab*) 1 mg PO DAILY [facility] Last Admin: 04/06/19 07:58 Dose: 1 mg Hydralazine HCl (Apresoline Iv*) 5 mg IV SLOW PU Q6H PRN PRN Reason: SYSTOLIC BP GREATER THAN: Last Admin: 04/03/19 18:11 Dose: 5 mg Levetiracetam (Keppra Iv Premix*) 500 mg in 100 mls @ 400 mls/hr IV Q12H [facility] Stop: 04/09/19 00:00 Last Admin: 04/06/19 03:29 Dose: 400 mls/hr Sodium Chloride (Ns 0.9% 1000 Ml) 1,000 mls @ 100 mls/hr IV PER RATE [facility] Stop: 04/06/19 21:44 Last Admin: 04/06/19 12:27 Dose: 100 mls/hr Lorazepam (Ativan Tab(*)) 0 - 6 mg PO .PER WAM PROTOCOL BRAD; Protocol Magnesium Hydroxide (Milk Of Magnesia Liq*) 30 ml PO DAILY PRN PRN Reason: CONSTIPATION Last Admin: 04/03/19 17:40 Dose: 30 ml Multivitamins/Minerals (Theragran/Minerals Tab*) 1 tab PO DAILY [facility] Last Admin: 04/06/19 07:58 Dose: 1 tab Ondansetron HCl (Zofran Inj*) 4 mg IV Q6H PRN PRN Reason: NAUSEA/VOMITING Potassium Chloride (Klor Con Er Tab*) 20 meq PO Q2H [facility] Stop: 04/06/19 16:01 Last Admin: 04/06/19 12:24 Dose: 20 meq Thiamine HCl (Vitamin B-1 Tab*) 100 mg PO DAILY [facility] Last Admin: 04/06/19 07:58 Dose: 100 mg Vital Signs: Temp Pulse Resp BP Pulse Ox 99.8 F 79 18 124/89 98 04/06/19 11:22 04/06/19 11:22 04/06/19 11:22 04/06/19 11:22 04/06/19 11:22 Oxygen Devices in Use Now: None Appearance: Mr. Guzman is a middle-aged black male who is laying on the R side, curled up. He wakes easily, but is agitated and intermittently participates in conversation. He appears mildly diaphoretic about the forehead. Eyes: - - Refused examination Ears/Nose/Mouth/Throat: - - CDI dressing in place to top of head, L lateral head ; L periorbital edema Respiratory: Symmetrical Chest Expansion and Respiratory Effort, Clear to Auscultation - does not follow instructions for deep breathing Cardiovascular: NL Sounds; No Murmurs; No JVD, RRR, No Edema Abdominal: - - BS in all quadrants; patient withdraws in pain with palpation of epigastric area; unable to further palpate Neurological: - - asleep, wakes easily, but is agitated; oriented Result Diagrams: 04/06/19 10:51 04/06/19 10:51 Microbiology and Other Data: Microbiology 04/01/19 03:58 Nasal Screen MRSA (PCR) - Final Nasal Mrsa Not Detected Assess/Plan/Problems-Billing Assessment: Mr. Guzman is a 64 yom with PMHx CAD, HTN, alcohol abuse who presented with SDH after sustaining a fall. - Patient Problems (1) Subdural hematoma Comment: -pt was found with right sided hemiparesis, AMS, aphasia, last known well the day prior -SDH likely traumatic -hx of alcohol abuse -taken to the OR for evacuation of subdural hematoma with drain placement 04/01 -drain removed 04/03 -neurosurgery managing; thank you for recommendations -continue Keppra for seizure ppx (2) Chest pain Comment: -pt reports "stomach pain," but points to chest; also appears midly diaphoretic -EKG appears unchanged from EKG at admission -trend troponins x3 -start tele -epigastric area is tender to palpation, so GI is on list of DDx; CMP for now -add on bowel regimen -low suspicion that this is related to Etoh withdrawal, as today is day 6 and patient has been scoring 0-4 since WAM protocol started (3) Periorbital edema of left eye Comment: -suspect that this is dependent and due to laying on L side -encouraged to sit upright -discussed with neurosurgery; no further recommendations (4) Anemia Comment: -normocytic anemia -stable -iron studies, B12, folate -stool for blood -start PO iron (5) Hyponatremia Comment: -SIADH vs dehydration vs beer potomania -serum osmo, urine osmo, urine Na ordered -trial 1L IVF (6) Hypertension Comment: -SBP 110-120's -continue amlodipine, hydralazine PRN (7) Alcohol abuse Comment: -serum level was low on presentation -continue thiamine, folic acid -SW involved in discharge planning; planning for [facility] (8) DVT prophylaxis Comment: -SCDs (9) Full code status Status and Disposition: Inpatient. Discharge when stable.
[2019-04-06] MEDS: KCL 20 MEQ/100 ML IVPREMIX* 20 MEQ/100 ML BAG IV SCH ×2 (15:43→17:55)
[2019-04-06 16:39] LABS: ALT 25 U/L (7-52); AST 37 U/L (13-39); Albumin 3.3 g/dL (3.2-5.2); Albumin/Globulin Ratio 0.8 (1-3); Alkaline Phosphatase 56 U/L (34-104); Globulin 4.1 g/dL (2-4); Indirect Bilirubin 0.2 mg/dL (0.3-1.0); Total Protein 7.4 g/dL (6.4-8.9)
[2019-04-06 17:08] LABS: Total Iron Binding Capacity 337 mcg/dL (250-450); Transferrin 241 mg/dL (203-362)
[2019-04-06 17:10] LABS: % Iron Saturation 6 % (15-55); Iron < 20 ug/dL (50-212)
[2019-04-06 17:12] LABS: Ferritin 33.6 ng/mL (24-336)
[2019-04-06 17:15] LABS: Folate > 20.00 ng/mL (>3.99)
[2019-04-06] MEDS ORDERED: Magnesium Hydroxide LIQ* 30 ML UDC PO PRN (18:07)
[2019-04-06] MEDS ORDERED: Senna TAB 8.6 mg* TAB PO PRN (18:07)
[2019-04-06] MEDS ORDERED: Polyethylene Glycol 3350* 17 GM PACKET PO PRN (18:07)
[2019-04-06] MEDS: Acetaminophen TAB* 325 MG PO PRN (21:15)
[2019-04-06] MEDS: Docusate CAP* 100 MG PO SCH (21:15)
[2019-04-06] MEDS: Ferrous Sulfate TAB* 325 MG PO SCH (21:15)
[2019-04-06] MEDS: Magnesium Hydroxide LIQ* 30 ML UDC PO SCH (21:16)
--- NOTE | 2019-04-06 23:30 | PN ---
Progress Note - Progress Note Date of Service: 04/06/19 SOAP: Subjective: []No events ON. Tolerates PO. Voids. Ambulates. Objective: []VSS, Afebrile. Wound s,c,d AAOx2. Follows commands. JOSE, EOM WNLs Face symmetric, Tongue midline. Left periorbital edema improved. Motor 5/5 left side, 4-5/5 Rt side. Sensory grossly intact to light touch. Assessment: []64 yom, hx of HTN, ETOH abuse, POD#6 Left FTP craniotomy for SDH evacuation. Plan: [] Monitor VS, Neurochecks. Continue SZ prophylaxis Maintain SBP < 140 Diet as tolerated. On ETOH protocol. DC planning, PT. Appreciate IM care. Skip Daniel MD
[2019-04-07] MEDS: levETIRAcetam 500 MG IVPREMIX* 500 MG/100 ML BAG IV SCH ×2 (03:25→15:44)
[2019-04-07 06:06] LABS: Hematocrit 31 % (42-52); Hemoglobin 10.6 g/dL (14.0-18.0); Mean Corpuscular HGB Conc 34 g/dL (31-36); Mean Corpuscular Hemoglobin 30 pg (27-31); Mean Corpuscular Volume 88 fL (80-94); Mean Platelet Volume 8.3 fL (7.4-10.4); Platelet Count 423 10^3/uL (150-450); Red Blood Count 3.57 10^6 /uL (4.18-5.48); Red Cell Distribution Width 14 % (10-15); White Blood Count 5.5 10^3/uL (3.5-10.8)
[2019-04-07 06:22] LABS: BUN/Creatinine Ratio 7.8 (8-20); Calcium 10.3 mg/dL (8.6-10.3); EGFR African American 153.3 (>60); EGFR Non-African American 126.7 (>60); Potassium 3.9 mmol/L (3.5-5.0)
[2019-04-07] MEDS: Folic Acid TAB* 1 MG PO SCH (08:44)
[2019-04-07] MEDS: amLODIPine TAB* 5 MG PO SCH (08:44)
[2019-04-07] MEDS: Acetaminophen TAB* 325 MG PO PRN (08:44)
[2019-04-07] MEDS: Multivitamins/Minerals TAB PO SCH (08:44)
[2019-04-07] MEDS: Thiamine TAB* 100 MG TAB PO SCH (08:44)
[2019-04-07] MEDS: Magnesium Hydroxide LIQ* 30 ML UDC PO SCH (08:45)
[2019-04-07] MEDS: Ferrous Sulfate TAB* 325 MG PO SCH (08:45)
[2019-04-07] MEDS: Docusate CAP* 100 MG PO SCH (08:45)
[2019-04-07] MEDS: hydrALAZINE IV* 20 MG/ML VIAL IV SLOW PU PRN (08:55)
--- NOTE | 2019-04-07 12:21 | DS ---
CC: Dr. Adriana Spencer; Dr. Lexie Daniel * DISCHARGE SUMMARY: DATE OF ADMISSION: 04/01/19 DATE OF DISCHARGE: 04/07/19 PRIMARY CARE PROVIDER: Dr. Adriana Spencer. OTHER PROVIDER: Dr. Lexie Daniel. ATTENDING PROVIDER: Dr. Koki Ovalles * (dictated by LOCO Flores). PRIMARY DIAGNOSES: 1. Acute left subdural hematoma. 2. Periorbital edema. 3. Anemia. 4. Abdominal pain, likely related to constipation. SECONDARY DIAGNOSES: 1. Coronary artery disease. 2. Hypertension. 3. Alcohol abuse. STUDIES WHILE IN THE HOSPITAL: 1. CT brain without impression. New mixed attenuation subdural fluid collection with isodense and hyperdense as well as hypodense components of the left cerebral convexity adjacent to the left frontal, temporal, parietal, and occipital lobes consistent with acute subdural hematoma measuring 3 cm thickness , new effacement of left cerebral sulci, and new significant midline shift to the right measuring maximum of 1.4 cm, stable age-related diffuse cerebral volume loss and chronic microvascular ischemic disease. 2. Chest x-ray impression, no evidence for acute findings. 3. CT cervical spine. Impression, no acute cervical spine fracture or other acute traumatic CT pathology. 4. CT lumbar spine. Impression, there is possible acute fracture involving the posterior aspect of the right 11th rib. No acute lumbar spine fracture. 5. CT thoracic spine. Impression, there is acute appearing fracture involving the right 11th rib posteriorly, no acute fracture of the thoracic spine. 6. CT brain without, impression again noted is left frontotemporal subdural hematoma. This has decreased in size and volume compared to 03/31/19 though there is an area along the left parietal lobe that has more acute blood that is not seen on the 03/31/19 exam. There is minimal persistent subfalcine shift to the right and mild sulcal effacement decreased from 03/31/19. 7. Cervical spine 2 views. Impression, limited view of the cervical spine with no dynamic instability. 8. Cervical spine 2 views. Impression, no dynamic instability identified. Mild C5 compression deformity similar to 2015, likely degenerative in nature, moderate C5-C6 degenerative disc disease. 9. CT brain without, the 1.4 cm residual left convexity subdural collection is grossly unchanged with a similar pattern of mixed attenuation, unchanged 3 mm, leftward midline shift. 10. CT brain without. Impression, the residual left convexity subdural collection is grossly unchanged. There is similar 3 mm left to right midline shift. Surgical drain has been removed. CONSULTATIONS WHILE IN THE HOSPITAL: Neurosurgery, the patient has signs of elevated intracranial pressure with midline shift, symptomatic surgical intervention is best treatment for him. Discussed with patient's brother and sister regarding treatment options as well as expectations, limitations, and possible complications. Brother and sister are in agreement to proceed with surgical intervention and informed consent was obtained. Brother understood the patient's condition may not improve, in fact may get worse after surgery and that he may require additional procedures in the future. Brother understood that evacuation of the subdural hematoma may not be possible and hematoma may reaccumulate acutely or in a delayed fashion, also understood possibility of intraoperative and possible loss of function with major neurological deficits and disability. The patient was started on seizure prophylaxis, type and cross requested. We will proceed with emergency surgical intervention. The patient will be admitted to ICU. PROCEDURES WHILE IN THE HOSPITAL: Left frontotemporal/parietal craniotomy for evacuation of subdural hematoma with drain placement for left subdural hematoma performed 04/01/[address] Daniel. DISCHARGE MEDICATIONS: Home medications, none. New home medications: 1. Acetaminophen 650 mg p.o. q.4 hours p.r.n. 2. Amlodipine 10 mg p.o. daily. 3. Docusate 100 mg p.o. b.i.d. p.r.n. 4. Ferrous sulfate 325 mg p.o. daily. 5. Folic acid 1 mg p.o. daily. 6. Hydrocodone/acetaminophen 5/325 1 tab p.o. q.4 hours p.r.n. 7. Levetiracetam 500 mg p.o. b.i.d. x1 more day. 8. Magnesium hydroxide 30 mL p.o. daily p.r.n. 9. Multivitamin/minerals 1 tab p.o. daily. 10. Polyethylene glycol 17 g p.o. daily p.r.n. 11. Thiamine 100 mg p.o. daily. HISTORY OF PRESENT ILLNESS/HOSPITAL COURSE: Mr. Guzman is a 64-year-old male with a past medical history of CAD, hypertension, alcohol abuse who presented to the ER with changes in mental status, right-sided weakness, and slurred speech. For full and complete details please see the history and physical dictated by Consuelo Elam, but in short the patient presents with these symptoms. He also had a history of subdural hematoma from weeks ago status post fall where he was treated at [facility]. In the ER, a new head CT was obtained and revealed a subdural fluid collection with acute subdural hematoma left-sided as well as a midline shift. Neurosurgery was consulted urgently and discussed with present family members, the need for surgical evacuation and drain placement. Despite the risks, the patient's family feel the benefits outweigh the risk and the patient was emergently taken for evacuation and drainage placement on 04/01/19. He was then admitted to the ICU where he was placed on seizure prophylaxis. His subdural drain was monitored and managed. He was placed on WAM protocol due to an extensive history of alcohol use. In fact, the patient reports that the reason he fell was because he was inebriated. Seizure prophylaxis was maintained throughout his hospital stay and is recommended for a total of 7 days; therefore, he will be discharged on levetiracetam. He had frequent brain CTs to monitor the progression of hematoma. The patient was noted to be hypertensive during his stay. He was started on nicardipine and eventually weaned off. He was then placed on amlodipine p.o., which he will be discharged on. His drain was removed on with good results. The patient's right-sided weakness appears resolved. His change in mental status appears to be back to baseline. He does appear to have some mild developmental delay. He is also very mildly dysarthric, but easy to understand and able to make his needs known as well is able to maintain a conversation. On posto day 4, the patient was noted to have some left facial and periorbital edema. In the following days, this improved somewhat although is still present. He is able to open the left eye some, but again there is still some periorbital edema. This is likely due to the patient's subdural hematoma and drainage. Neurology was consulted for recommendations and recommended sitting upright and not lying on the left side. The patient was also noted to be mildly anemic during his stay. This was likely partially due to blood loss from subdural hematoma. Iron studies were performed and revealed low iron, although the rest of the studies are not consistent with iron deficiency. He was placed on iron supplementation orally and should follow with his primary care provider for this. His B12 and folate were within normal limits. Despite this, he was placed on supplementation due to his history of alcohol abuse. After the patient's evacuation and drain placement, he did have shani placed. These should be removed 10 to 15 days from placement. He will follow with Dr. Daniel for removal. On the day prior to discharge, the patient complained of severe abdominal pain. He was seen in his room clutching his stomach. When asked where his pain is he points to the epigastric region, this therefore prompted ACS workup. An EKG was obtained and appears unchanged from EKG at admission. Troponins were negative x3. He was placed on tele and there were no changes noted on telemetry. He did have tenderness to palpation at the epigastric region. A bowel regimen was added on. This was suspected to be due to constipation. The patient reports that he had a bowel movement this morning, although nursing reports he has not. He reports that since this time he has had no abdominal pain, he is eating and drinking well. He has been up to the bathroom without difficulty. The patient does report that he feels somewhat depressed although his mood appears stable. He is agreeable to discharge to [facility] today. PHYSICAL EXAMINATION: Vital Signs: Temperature 99.4 tympanic, heart rate 71, respiratory rate 16, oxygen saturation 100% on room air, blood pressure 126/72. General: Mr. Guzman is a well-developed, well-nourished average weight, middle- aged black man who is sitting up in bed. He appears to be in no acute distress. He is very mildly dysarthric, but has no difficulty with making his wishes known or carrying on a conversation. HEENT: There are bandages to the head at the midline and the left lateral head that are clean, dry, and intact without any drainage noted. On bandaging, the patient has left-sided facial swelling that is most notable in the jonathan-orbital area. PERRL, EOMI. That is nonpainful, visual mojica are grossly intact. Sclerae are nonicteric without injection. Hearing is grossly intact. Oral mucous membranes are moist. There are no lesions. The pharynx is clear. Poor dentition. Palate elevates symmetrically. Tongue is at midline. Cardiovascular: Regular rate and rhythm with S1, S2 present. No murmurs, rubs, clicks. or gallops. There is no JVD or peripheral edema. Pulmonary: Symmetrical chest expansion without use of accessory muscles, clear to auscultation bilaterally without rhonchi, wheezes or rales. Abdomen: Bowel sounds in all quadrants, soft. There is no tenderness to palpation throughout the entire abdomen. No CVA tenderness. Musculo-skeletal: Full range of motion without pain or deformities. Neuro: The patient is awake. He is alert and oriented x3. Cranial nerves II through XII are grossly intact. He is able to move all of his extremities. DISCHARGE PLAN: Mr. Guzman will be discharged to [facility]. CONDITION: Fair. DIET: 1. Resume home diet. 2. Abstain from alcohol use. ACTIVITIES: 1. No bending, lifting, or driving. 2. Keep incision clean and dry. 3. Remove shani between 04/11/19 and 04/16/19. Schedule appointment with Dr. Daniel for staple removal. MEDICATIONS: 1. As above. 2. Continue Keppra for 1 more day then discontinue. EDUCATION: 1. Follow up with Dr. Daniel within 5 to 10 days for suture removal. 2. Follow up with primary care provider upon discharge from subacute rehab. 3. Return to the ER nearest hospital if you experience any headache, drainage from suture site, worsening facial edema, difficulty speaking or swallowing, and weakness. Return for chest pain or discomfort, shortness of breath, high fevers, chills, night sweats, dizziness, lightheadedness, loss of consciousness or any other worrisome signs or symptoms. This is a summarized report of a complex medical history and hospital stay. For further details, please see the entire medical record. TIME SPENT: Approximately 40 minutes were spent on this discharge, greater than half of that time spent [id number] with the patient discussing discharge plans and instructions. LOCO NAVA [id number]/[facility] #: [id number] NICOLE
[2019-04-07] MEDS ORDERED: levETIRAcetam TAB* 500 MG PO SCH (15:00)
--- NOTE | 2019-04-07 15:43 | PN ---
Progress Note - Progress Note Date of Service: 04/07/19 SOAP: Subjective: [] Patient was seen early in am. No events ON. Tolerates PO. Voids. Ambulates. Objective: [] VSS, Afebrile. Wound s,c,d AAOx2. Follows commands. JOSE, EOM WNLs Face symmetric, Tongue midline. Left periorbital edema improved. Motor 5/5 . No drift. Sensory grossly intact to light touch. Assessment: []64 yom, hx of HTN, ETOH abuse, POD#7 Left FTP craniotomy for SDH evacuation. Plan: [] Monitor VS, Neurochecks. Continue SZ prophylaxis Maintain SBP < 140 Diet as tolerated. On ETOH protocol. DC planning, PT. Follow up in office 15 days after surgical date. Appreciate IM care. Skip Daniel MD
[2019-04-07 15:56] VITALS: BP 134/74
== END 2019-04-07 18:15 | DRG 26 ==
LOC: ED 18:25 → OR 04-01 00:11 → ICU 04-01 02:49 → SSU 04-04 10:50
PROVIDERS: ADMIT Student in an Organized Health Care Education/Training Program; ATTEND Internal Medicine
PROC: 00C70ZZ Extirpation of Matter from Cerebral Hemisphere, Open Approach (ICD-10-PCS; principal; 2019-04-01)
DX: S06.5X0A Traumatic subdural hemorrhage without loss of consciousness, initial encounter (principal); S22.31XA Fracture of one rib, right side, initial encounter for closed fracture; G81.91 Hemiplegia, unspecified affecting right dominant side; E87.1 Hypo-osmolality and hyponatremia; K59.00 Constipation, unspecified; F10.10 Alcohol abuse, uncomplicated; M43.9 Deforming dorsopathy, unspecified; M50.322 Other cervical disc degeneration at C5-C6 level; D50.0 Iron deficiency anemia secondary to blood loss (chronic); R62.50 Unspecified lack of expected normal physiological development in childhood; F17.200 Nicotine dependence, unspecified, uncomplicated; R40.2362 Coma scale, best motor response, obeys commands, at arrival to emergency department; R40.2142 Coma scale, eyes open, spontaneous, at arrival to emergency department; R40.2252 Coma scale, best verbal response, oriented, at arrival to emergency department; E87.6 Hypokalemia; E83.42 Hypomagnesemia; W19.XXXA Unspecified fall, initial encounter; R60.0 Localized edema; I11.0 Hypertensive heart disease with heart failure; I50.9 Heart failure, unspecified; I25.10 Atherosclerotic heart disease of native coronary artery without angina pectoris; Y92.9 Unspecified place or not applicable; R07.9 Chest pain, unspecified; Z91.81 History of falling; Y90.0 Blood alcohol level of less than 20 mg/100 ml
CPT/HCPCS: 36415; 70450; 71045; 72040; 72125; 72128; 72131; 80048; 80053; 80061; 80076; 80320; 82272; 82607; 82728; 82746; 83540; 83550; 83605; 83735; 83930; 83935; 84100; 84300; 84484; 85025; 85027; 85610; 85730; 86850; 86900; 86901; 86922; 87641; 93005; 96365; 99285; A9270-GY; C1713; C1776; G0480; G0515-GO; J0360; J0690; J1100; J1953; J2001; J2150; J2250; J2270; J2405; J2704; J3010; J3411; J3475; J3480; J3490

== ENCOUNTER 2019-05-27 06:29 | Emergency (ER) | payer MEDICARE, MEDICAID ==
[2019-05-27] MEDS ORDERED: NS 0.9% 1000 ML** 1,000 ML IV ONE (06:49)
--- NOTE | 2019-05-27 06:50 | ED ---
Seizure - HPI Summary HPI Summary: Patient is a 64-year-old male who presents emergency department for evaluation after reported seizure per family this morning. Patient has a history of alcoholism and sustained a subdural hematoma after a fall about 2 months ago. He was admitted to our ICU and underwent evacuation of hematoma by Dr. Silver. Patient notes he is not on seizure prophylaxis wound appears he was treated with Keppra during hospitalization. Patient has no recollection of what happened this morning. He complains of mild bilateral hip pain. Patient notes he is still drinking alcohol. History is limited from patient. Patient otherwise denies chest pain, shortness of breath, cough, fever abdominal pain, vomiting. Symptoms are moderate in severity. No current modifying factors. - History Of Current Complaint Time Seen by Provider: 05/27/19 06:42 Hx Obtained From: Patient, Family/Audit Specialist, EMS - Allergies/Home Medications Allergies/Adverse Reactions: Allergies Allergy/AdvReac Type Severity Reaction Status Date / Time No Known Allergies Allergy Verified 04/02/18 17:41 Home Medications: Home Medications Folic Acid TAB* [Folvite TAB*] 1 mg PO DAILY tab 04/07/19 [Rx Confirmed ] Thiamine TAB* [Vitamin B-1 TAB 100 MG*] 100 mg PO DAILY tab 04/07/19 [Rx Confirmed 05/27/19] Albuterol Sulfate [Proventil Hfa] 2 puff PO Q4H PRN 05/27/19 [History Confirmed 05/27/19] Ibuprofen TAB* [Motrin TAB* 600 MG] 600 mg PO Q6H PRN 05/27/19 [History Confirmed 05/27/19] Losartan TAB* [Cozaar TAB*] 100 mg PO DAILY 05/27/19 [History Confirmed 05/27/19 ] Nicotine PATCH 21 MG/24 HR* 21 mg TRANSDERM DAILY 05/27/19 [History Confirmed ] Pantoprazole TAB * [Protonix TAB*] 40 mg PO DAILY 05/27/19 [History Confirmed ] cloNIDine HCl [Catapres 0.2 MG TAB] 0.2 mg PO DAILY 05/27/19 [History Confirmed 05/27/19] levETIRAcetam TAB* [Keppra TAB*] 500 mg PO BID #60 tab 05/27/19 [Rx] PMH/Surg Hx/FS Hx/Imm Hx Previously Healthy: No Endocrine/Hematology History: Denies: Hx Anticoagulant Therapy, Hx Anemia Cardiovascular History: Reports: Hx Coronary Artery Disease, Hx Hypertension Denies: Hx Cardiac Arrest History: Denies: Hx Acute Renal Failure, Hx Dialysis Sensory History: Denies: Hx Contacts or Glasses, Hx Hearing Aid Opthamlomology History: Denies: Hx Contacts or Glasses Neurological History: Denies: Hx CVA, Hx Dementia, Hx Developmental Delay, Hx Headaches, Hx Migraine, Hx Nerve Disease, Hx Seizures, Hx Spinal Cord Injury, Hx Transient Ischemic Attacks (TIA), Other Neuro Impairments/Disorders - Surgical History Surgery Procedure, Year, and Place: CRANIOTOMY FOR EVACUATION OF SDH Infectious Disease History: No Infectious Disease History: Denies: Hx Clostridium Difficile, Hx Hepatitis, Hx Human Immunodeficiency Virus (HIV), Hx of Known/Suspected MRSA, Hx Shingles, Hx Tuberculosis, History Other Infectious Disease, Traveled Outside the in Last 30 Days - Family History Known Family History: Positive: Non-Contributory Negative: Cardiac Disease, Hypertension - Social History Occupation: Unemployed Lives: With Family Alcohol Use: Daily Alcohol Amount: pt states hasnt drank since fall Substance Use Type: Reports: None Hx Tobacco Use: Yes Smoking Status (MU): Heavy Every Day Tobacco Smoker Type: Cigarettes Have You Smoked in the Last Year: Yes Review of Systems Constitutional: Negative Negative: Fever, Chills Eyes: Negative ENT: Negative Cardiovascular: Negative Negative: Chest Pain Respiratory: Negative Negative: Shortness Of Breath Gastrointestinal: Negative Positive: Other - hip pain Neurological/Mental Status: Other - seizure All Other Systems Reviewed And Are Negative: Yes Physical Exam Triage Information Reviewed: Yes Vital Signs On Initial Exam: Initial Vitals Temp Pulse Resp BP Pulse Ox 98.9 F 70 14 158/95 94 05/27/19 06:44 05/27/19 06:44 05/27/19 06:44 05/27/19 06:44 05/27/19 06:44 Vital Signs Reviewed: Yes Appearance: Positive: Well-Appearing - Pt. lying on right side in bed with eyes closed. Awake and answers questions. Alert to person and place. Skin: Positive: Warm, Dry Head/Face: Positive: Normal Head/Face Inspection Eyes: Positive: Normal, EOMI, JOSE, Conjunctiva Clear Neck: Positive: Supple Respiratory/Lung Sounds: Positive: Other - Mild diffuse expiratory wheeze throughout. Cardiovascular: Positive: Normal, RRR Musculoskeletal: Negative: Edema Left, Edema Right Neurological: Positive: Normal, CN Intact II-III Psychiatric: Positive: Affect/Mood Appropriate Procedures - Sedation Patient Received Moderate/Deep Sedation with Procedure: No Diagnostics - Vital Signs Vital Signs Temp Pulse Resp BP Pulse Ox 05/27/19 06:44 98.9 F 70 14 158/95 94 - Laboratory Result Diagrams: 05/27/19 07:18 05/27/19 07:18 Lab Statement: Any lab studies that have been ordered have been reviewed, and results considered in the medical decision making process. Course/Dx - Course Course Of Treatment: Pt. with reported seizure this am per pt.'s family. Pt. is a poor historian. Afebrile with stable VS. NSS running. Per records pt. on keppra while admitted. Given ETOH intoxication per pt and recent SDH, will repeat brain ct today. Pending labs. ECG done at 0703 shows a sinus rhythm of 71bpm, left axis deviation, inverted t waves in lead 3, appropriate intervals, similar to prior tracing. Brain CT negative for acute findings per radiology. Hip xray with fx, shows signs of inguinal hernia per radiology. Abd. is soft and nontender. Labs unremarkable other than chronic anemia, mildly elevated AST , lactic acid 3.1. Case discussed with Dr. Daniel, neurosx, he recommends restarting keppra and getting pt. set up with neurology. Case discussed with Dr. Mansfield. He recommends loading dose of keppra 1000mg PO if can tolerate and dc home with Keppra 500mg BID and he will f.u with pt. in the office. On re- exam pt. awake, alert and oriented. Nurse discussed dc with family. Will return to er if sxs change or worsen. - Diagnoses Differential Diagnosis/HQI/PQRI: Positive: Alcohol Abuse, Alcohol Withdrawal, Intracranial Bleed, Metabolic Disorder, Known Seizure Disorder Provider Diagnoses: Seizure, History of subdural hematoma Discharge ED - Sign-Out/Discharge Documenting (check all that apply): Patient Departure - Discharge Plan Condition: Improved Disposition: HOME Prescriptions: levETIRAcetam TAB* [Keppra TAB*] 500 mg PO BID #60 tab Patient Education Materials: New-Onset Seizure in Adults (ED), Seizures After Traumatic Brain Injury (ED) Referrals: Tu Mansfield MD [Medical Doctor] - Adriana Spencer MD [Primary Care Provider] - Additional Instructions: Please call Dr. Mansfield's office today to schedule a follow up appointment Take Keppra as directed Do not drink alcohol Return to ER if symptoms change or worsen - Billing Disposition and Condition Condition: IMPROVED Disposition: Home - Attestation Statements Provider Attestation: I was available for consult. This patient was seen by the LINDA. The patient was not presented to, seen by, or examined by me. Kevin Cerrato MD
--- OUTSIDE RECORDS SUMMARY | 2019-05-27 07:22 | XMS REPORT | Continuity of Care Document ---
:1955 External Reference #:[id number] Author Name Alyssa Saenz MD Address [address] [facility] [place] [address] Problems Description No Information Available Social History Type Date Description Comments Sex Unknown ETOH Use Denies alcohol use Recreational Drug Use Denies Drug Use Tobacco Use Start: Unknown End: Patient is a former smoker Unknown Smoking Status Reviewed: 05/09/19 Patient is a former smoker Exercise Type/Frequency Exercises regularly Exercise Type/Frequency physical therapy Allergies, Adverse Reactions, Alerts Active Allergies Reaction Severity Comments Date Penicillin 04/27/2019 Medications Active Medications SIG Qnty Indications Ordering Provider Date Senna Plus 2 at bedtime 60tabs Alyssa Saenz MD 05/09/2019 8.6-50mg Tablets Acetaminophen Extra 2 tabs by mouth Unknown Strength every 8 hours as 500mg Tablets needed for pain or fever Hydrocodone-Acetaminop 1 or 2 tabs by Unknown hen mouth every 6-8 5-325mg Tablets hours as needed for pain Vitamin B1 1 by mouth every Unknown 100mg Tablets day Theratabs Unknown Folic Acid take one Unknown 1mg Tablets capsule/tablet daily by mouth Iron 1 by mouth every Unknown 325(65Fe) mg Tablets day Amlodipine Besylate 1 by mouth every Unknown 10mg day Tablets Immunizations Description No Information Available Vital Signs Date Vital Result Comment 05/09/2019 1:01pm Height 65 inches 5'5" Weight 156.00 lb Heart Rate 70 /min BP Systolic 138 mmHg BP Diastolic 88 mmHg Respiratory Rate 18 /min Body Temperature 98.3 F BMI (Body Mass Index) 26.0 kg/m2 04/27/2019 12:05pm Height 65 inches 5'5" Weight 156.12 lb Heart Rate 64 /min BP Systolic 156 mmHg BP Diastolic 96 mmHg Pain Level 0 BMI (Body Mass Index) 26.0 kg/m2 Results Description No Information Available Procedures Date Code Description Status 04/06/2019 73469 EKG, Interpretation Only Completed 04/01/2019 12917 Craniectomy Or Craniotomy For Evacuation Of Hematoma Completed Medical Devices Description No Information Available Encounters Type Date Location Provider Dx Diagnosis Office Visit 04/07/2019 [facility] I62.00 Nontraumatic 11:24a Assocjoaquin PA subdural Hospitalists hemorrhage, unspecified H05.222 Edema of left orbit D64.9 Anemia, unspecified R10.9 Unspecified abdominal pain Office Visit 04/06/2019 [facility] I62.00 Nontraumatic 11:24a joaquin Nolasco PA subdural Hospitalists hemorrhage, unspecified R10.13 Epigastric pain E87.1 Hypo-osmolality and hyponatremia I10 Essential (primary) hypertension Office Visit 04/05/2019 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 subdural hemorrhage, unspecified I10 Essential (primary) hypertension E87.6 Hypokalemia E83.42 Hypomagnesemia Office Visit 04/02/2019 1:04p Intensivists Alyssa Saenz, S06.6x0A Traum subrac hem w/o loss of consciousness, init I10 Essential (primary) hypertension [facility] N[facility] 11:22a Assjoaquin marquez M.D. subdural Hospitalists hemorrhage, unspecified Office Visit 03/31/2019 Neurosurgery Vassilios S06.5x0A Traum subdr hem 12:00p Services Of Nora Daniel MD w/o loss of consciousness, init Assessments Date Code Description Provider 05/09/2019 K40.90 Unilateral inguinal hernia, without Alyssa Saenz MD obstruction or gangrene, not specified as recurrent 04/27/2019 S06.5x0D Traumatic subdural hemorrhage without Vassilios MD María loss of consciousness, subsequent encounter 04/07/2019 I62.00 Nontraumatic subdural hemorrhage, LOCO Flores unspecified 04/07/2019 H05.222 Edema of left orbit LOCO Flores 04/07/2019 D64.9 Anemia, unspecified LOCO Flores 04/07/2019 R10.9 Unspecified abdominal pain LOCO Flores 04/06/2019 R94.31 Abnormal electrocardiogram [ECG] Aubrie Prater MD, FACC, [EKG] FSCAI 04/06/2019 I62.00 Nontraumatic subdural hemorrhage, LOCO Flores unspecified 04/06/2019 R10.13 Epigastric pain LOCO Flores 04/06/2019 E87.1 Hypo-osmolality and hyponatremia LOCO Flores 04/06/2019 I10 Essential (primary) hypertension LOCO Flores 04/05/2019 I62.00 Nontraumatic subdural hemorrhage, LOCO Flores unspecified 04/05/2019 I10 Essential (primary) hypertension LOCO Flores 04/05/2019 R60.0 Localized edema LOCO Flores 04/04/2019 I62.00 Nontraumatic subdural hemorrhage, Regi Arvizu, FARM DEMONSTRATOR unspecified 04/04/2019 I10 Essential (primary) hypertension eRgi Arvizu, FARM DEMONSTRATOR 04/03/2019 I62.00 Nontraumatic subdural hemorrhage, Po Mejia M.D. unspecified 04/03/2019 I10 Essential (primary) hypertension Po Mejia M.D. 04/03/2019 E87.6 Hypokalemia Po Mejia M.D. 04/03/2019 E83.42 Hypomagnesemia Po Mejia M.D. 04/02/2019 S06.6x0A Traumatic subarachnoid hemorrhage Alyssa Saenz MD without loss of consciousness, initial encounter 04/02/2019 I10 Essential (primary) hypertension Alyssa Saenz MD 04/01/2019 S06.5x0A Traumatic subdural hemorrhage without Vassilios MD María loss of consciousness, initial encounter 04/01/2019 I62.00 Nontraumatic subdural hemorrhage, Koki Ovalles M.D. unspecified 03/31/2019 S06.5x0A Traumatic subdural hemorrhage without Lexie Daniel MD loss of consciousness, initial encounter Plan of Treatment 05/09/2019 - Alyssa Saenz MDK40.90 Unilateral inguinal hernia, without obstruction or gangrene, not specified as recurrentInstructions:Will schedule surgery for repair after medical clearance from primary care doctor. Functional Status Description No Information Available Mental Status Description No Information Available Referrals Description No Information Available
--- OUTSIDE RECORDS SUMMARY | 2019-05-27 07:22 | XMS REPORT | Continuity of Care Document ---
:1955 External Reference #:[id number] Author Name Alyssa Saenz MD (transmitted by agent of provider Mary Beth Ayala) Address [address] [place] [address] Problems Description No Information Available Social History Type Date Description Comments Sex Unknown ETOH Use Alcohol abuse Patient does not know how many drinks daily. Niece reports "a lot." Quit drinking after hospitalization for [facility] Mar 2019 Recreational Drug Use Denies Drug Use Tobacco Use Start: Unknown Patient is a former Quit after End: Unknown smoker hospitalization for [facility] Mar 2019 Tobacco Use Start: Unknown Heavy tobacco smoker (more than 10 cigarettes/day) Smoking Status Reviewed: Heavy tobacco smoker 05/09/19 (more than 10 cigarettes/day) Exercise Exercises regularly Type/Frequency Exercise physical therapy Type/Frequency Allergies, Adverse Reactions, Alerts Active Allergies Reaction [...] Available Procedures Date Code Description Status 04/06/2019 45449 EKG, Interpretation Only Completed 04/01/2019 12743 Craniectomy Or Craniotomy For Evacuation Of Hematoma Completed Medical Devices Description No Information Available Encounters Type Date Location Provider Dx Diagnosis [facility] Alyssa Saenz MD K40.90 Unil inguinal 1:00p Of Home Care Manager Rn hernia, w/o obst or gangr, not spcf as recur Office Visit 04/07/2019 [facility] I62.00 Nontraumatic 11:24a Assoc,LOCO Blandon subdural Hospitalists hemorrhage, unspecified H05.222 Edema of left orbit D64.9 Anemia, unspecified R10.9 Unspecified abdominal pain Office Visit 04/06/2019 [facility] I62.00 Nontraumatic 11:24a Assocjoaquin PA subdural Hospitalists hemorrhage, unspecified R10.13 Epigastric pain E87.1 Hypo-osmolality and hyponatremia I10 Essential (primary) hypertension Office Visit 04/05/2019 [facility] I62.00 Nontraumatic 11:23a Assocjoaquin PA subdural Hospitalists hemorrhage, unspecified I10 Essential (primary) hypertension R60.0 Localized edema Office Visit 04/04/2019 11:23a Intensivists Regi I62.00 Nontraumatic [facility] [place], 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 subdural hemorrhage, unspecified I10 Essential (primary) hypertension E87.6 Hypokalemia E83.42 Hypomagnesemia Office Visit 04/02/2019 1:04p Intensivists Alyssa Saenz, S06.6x0A Traum subrac hem w/o loss of consciousness, init I10 Essential (primary) hypertension Office Visit 04/01/2019 [facility] I62.00 Nontraumatic 11:22a Assoc,joaquin Ovalles M.D. subdural Hospitalists hemorrhage, unspecified Office Visit 03/31/2019 Neurosurgery Vassilios S06.5x0A Traum subdr hem 12:00p Services Of Nora Daniel MD w/o loss of consciousness, init Assessments Date Code Description Provider 05/09/2019 K40.90 Unilateral inguinal hernia, without Alyssa Saenz MD obstruction or gangrene, not specified as recurrent 04/27/2019 S06.5x0D Traumatic subdural hemorrhage without Lexie Daniel MD loss of consciousness, subsequent encounter 04/07/2019 I62.00 [...] 04/04/2019 I62.00 Nontraumatic subdural hemorrhage, Regi Arvizu, CATHI unspecified 04/04/2019 I10 Essential (primary) hypertension Regi Arvizu, ROOM SERVICE FOOD SERVICE ATTENDANT 04/03/2019 I62.00 Nontraumatic subdural hemorrhage, Po Mejia M.D. unspecified 04/03/2019 I10 Essential (primary) hypertension Po Meija M.D. 04/03/2019 E87.6 Hypokalemia Po Mejia M.D. 04/03/2019 E83.42 Hypomagnesemia Po Mejia M.D. 04/02/2019 S06.6x0A Traumatic subarachnoid hemorrhage Alyssa Saenz MD without loss of consciousness, initial encounter 04/02/2019 I10 Essential (primary) hypertension Alyssa Saenz MD 04/01/2019 S06.5x0A Traumatic subdural hemorrhage without Vasalexander Daniel MD loss of consciousness, initial encounter 04/01/2019 I62.00 [...]
--- OUTSIDE RECORDS SUMMARY | 2019-05-27 07:22 | XMS REPORT ---
:1955 Author Organization [facility] Care Team Providers Name Role Phone Unavailable Unavailable Unavailable Problems This patient has no known problems. Allergies, Adverse Reactions, Alerts Allergy Allergy Status Severity Reaction(s) Onset Inactive Treating Comments Name Type Date Date Clinician Unknown None Active Unknown None Unknown No Known Allergies For This Patient Medications Ordered Filled Start Stop Current Ordering Indication Dosage Frequency Signature Comments Components Medication Medication Date Date Medication? Clinician (SIG) Name Name No Known No Known No None None None Medications Medications For This For This Patient Patient Procedures This patient has no known procedures. Results This patient has no known results.
--- OUTSIDE RECORDS SUMMARY | 2019-05-27 07:22 | XMS REPORT | Continuity of Care Document ---
:1955 External Reference #:[id number] Author Name Lexie Daniel MD (transmitted by agent of provider Nelli Whipple) Address [address] [place] [address] [place] [address] Problems Description No Information Available Social History Type Date Description Comments Sex Unknown ETOH Use Denies alcohol use Tobacco Use Start: Unknown rarely smokes Recreational Drug Use Denies Drug Use Smoking Status Reviewed: 04/27/19 rarely smokes Exercise Type/Frequency Exercises regularly Exercise Type/Frequency physical therapy Allergies, Adverse Reactions, Alerts Active Allergies Reaction Severity Comments Date Penicillin 04/27/2019 Medications Active Medications SIG Qnty Indications Ordering Provider Date Acetaminophen Extra 2 tabs by mouth Unknown Strength every 8 hours as 500mg Tablets needed for pain or fever Hydrocodone-Acetaminoph 1 or 2 tabs by Unknown en mouth every 6-8 5-325mg Tablets hours as needed for pain Levetiracetam ER 1 by mouth every Unknown 500mg night at bedtime Tablets ER 24HR Vitamin B1 1 by mouth every Unknown 100mg Tablets day Theratabs Unknown Folic Acid take one Unknown 1mg Tablets capsule/tablet daily by mouth Iron 1 by mouth every Unknown 325(65Fe) mg Tablets day Amlodipine Besylate 1 by mouth every Unknown 10mg day Tablets Immunizations Description No Information Available Vital Signs Date Vital Result Comment 04/27/2019 12:05pm Height 65 inches 5'5" Weight 156.12 lb Heart Rate 64 /min BP Systolic 156 mmHg BP Diastolic 96 mmHg Pain Level 0 BMI (Body Mass Index) 26.0 kg/m2 Results Description No Information Available Procedures Date Code Description Status 04/06/2019 91338 EKG, Interpretation Only Completed Medical Devices Description No Information Available Encounters Type Date Location Provider Dx Diagnosis [facility] I62.00 Nontraumatic 11:24a joaquin Nolasco PA subdural Hospitalists hemorrhage, unspecified H05.222 Edema of left orbit D64.9 Anemia, unspecified R10.9 Unspecified abdominal pain [facility] I62.00 Nontraumatic 11:24a joaquin Nolasco PA subdural Hospitalists hemorrhage, unspecified R10.13 Epigastric pain E87.1 Hypo-osmolality and hyponatremia I10 Essential (primary) hypertension [facility] I62.[facility] Nontraumatic 11:23a joaquin Nolasco PA subdural Hospitalists hemorrhage, unspecified I10 Essential (primary) hypertension R60.0 Localized edema Office Visit 04/04/2019 11:23a Intensivists Regi I62.00 Nontraumatic [facility] [place], subdural BILLING TYPIST hemorrhage, unspecified I10 Essential (primary) hypertension Office Visit 04/03/2019 11:22a Intensivists Po Mejia, I62.00 Nontraumatic M.D. subdural hemorrhage, unspecified I10 Essential (primary) hypertension E87.6 Hypokalemia E83.42 Hypomagnesemia Office Visit 04/02/2019 1:04p Intensivists Alyssa Saenz, S06.6x0A Traum subrac hem w/o MD loss of consciousness, init I10 Essential (primary) hypertension Office Visit 04/01/2019 [facility] Koki Ovalles, I62.00 Nontraumatic 11:22a joaquin NolascoDCarmencita subdural Hospitalists hemorrhage, unspecified Assessments Date Code Description Provider 04/27/2019 S06.5x0S Traumatic subdural hemorrhage without Vassilal Daniel MD loss of consciousness, sequela 04/07/2019 I62.00 Nontraumatic subdural hemorrhage, LOCO Flores unspecified 04/07/2019 H05.222 Edema of left orbit LOCO Flores 04/07/2019 D64.9 Anemia, unspecified LOCO Flores 04/07/2019 R10.9 Unspecified abdominal pain Emmanuellekory FernandesLOCO plascencia 04/06/2019 R94.31 Abnormal electrocardiogram [ECG] Aubrie Prater MD, [facility], [EKG] FSCAI 04/06/2019 I62.00 Nontraumatic subdural hemorrhage, Emmanuelle BrunsonLOCO unspecified 04/06/2019 R10.13 Epigastric pain Emmanuellekory SuarezBrunsonLOCO alva 04/06/2019 E87.1 Hypo-osmolality and hyponatremia LOCO Flores 04/06/2019 I10 Essential (primary) hypertension Emmanuelle BrunsonLOCO lava 04/05/2019 I62.00 Nontraumatic subdural hemorrhage, Emmanuelle BrunsonLOCO alva unspecified 04/05/2019 I10 Essential (primary) hypertension LOCO Flores 04/05/2019 R60.0 Localized edema LOCO Flores 04/04/2019 I62.00 Nontraumatic subdural hemorrhage, Regi Arvizu, BILLING TYPIST unspecified 04/04/2019 I10 Essential (primary) hypertension Regi Arvizu, BILLING TYPIST 04/03/2019 I62.00 Nontraumatic subdural hemorrhage, Po Mejia M.D. unspecified 04/03/2019 I10 Essential (primary) hypertension Po Mejia M.D. 04/03/2019 E87.6 Hypokalemia Po Mejia M.D. 04/03/2019 E83.42 Hypomagnesemia Po Mejia M.D. 04/02/2019 S06.6x0A Traumatic subarachnoid hemorrhage Alyssa Saenz MD without loss of consciousness, initial encounter 04/02/2019 I10 Essential (primary) hypertension Alyssa Saenz MD 04/01/2019 I62.00 Nontraumatic subdural hemorrhage, Koki Ovalles M.D. unspecified Plan of Treatment 04/27/2019 - Vassilios Dimopoulos, MDS06.5x0S Traum subdr hem w/o loss of consciousness, sequelaNew Xrays:CT Brain Wo, Ordered: 04/27/19Follow up:[facility] in 1 month Functional Status Description No Information Available Mental Status Description No Information Available Referrals Description No Information Available
[2019-05-27 07:30] LABS: Urine Appearance Clear; Urine Bilirubin Negative (Negative); Urine Blood 1+ (Negative); Urine Color Yellow; Urine Glucose Negative (Negative); Urine Ketones Trace (Negative); Urine Nitrite Negative (Negative); Urine Protein 2+(100 mg/dL) (Negative); Urine Specific Gravity 1.013 (1.010-1.030); Urine Urobilinogen Negative (Negative)
[2019-05-27 07:32] LABS: ABS Basophils 0.1 10^3/ul (0-0.2); ABS Lymphocytes 0.6 10^3/ul (1.0-4.8); ABS Monocytes 0.5 10^3/ul (0-0.8); ABS Neutrophils 4.5 10^3/ul (1.5-7.7); Eosinophil % 0.8 %; Hematocrit 36 % (42-52); Hemoglobin 12.1 g/dL (14.0-18.0); Lymphocyte % 11.2 %; Mean Corpuscular HGB Conc 34 g/dL (31-36); Mean Corpuscular Hemoglobin 29 pg (27-31); Mean Corpuscular Volume 85 fL (80-94); Mean Platelet Volume 7.3 fL (7.4-10.4); Nucleated Red Blood Cells % 0.1; Platelet Count 278 10^3/uL (150-450); Red Cell Distribution Width 17 % (10-15); White Blood Count 5.8 10^3/uL (3.5-10.8)
[2019-05-27 07:38] LABS: INR 1.11 (0.82-1.09)
[2019-05-27 07:43] LABS: Urine Bacteria Absent (Absent); Urine Red Blood Cell Trace(0-2/hpf) (Absent); Urine Squamous Epithelial Cell Present (Absent); Urine White Blood Cell Trace(0-5/hpf) (Absent)
[2019-05-27 07:47] LABS: ALT 13 U/L (7-52); AST 20 U/L (13-39); Albumin 3.9 g/dL (3.2-5.2); Albumin/Globulin Ratio 0.9 (1-3); Alkaline Phosphatase 116 U/L (34-104); Anion Gap 9 mmol/L (2-11); BUN/Creatinine Ratio 7.9 (8-20); Blood Urea Nitrogen 6 mg/dL (6-24); CO2 Carbon Dioxide 25 mmol/L (22-32); Calcium 10.4 mg/dL (8.6-10.3); Chloride 101 mmol/L (101-111); EGFR African American 125.8 (>60); EGFR Non-African American 103.9 (>60); Globulin 4.2 g/dL (2-4); Glucose 111 mg/dL (70-100); Magnesium 1.9 mg/dL (1.9-2.7); Potassium 3.7 mmol/L (3.5-5.0); Sodium 135 mmol/L (135-145); Total Protein 8.1 g/dL (6.4-8.9)
[2019-05-27 07:48] LABS: Troponin I 0.01 ng/mL (<0.03)
[2019-05-27 08:12] LABS: Alcohol < 10 mg/dL (<10)
[2019-05-27] MEDS ORDERED: levETIRAcetam TAB* 500 MG PO ONE (08:37)
[2019-05-27 09:49] VITALS: BP 156/94
== END 2019-05-27 09:49 | disposition home or self-care (01) ==
LOC: ED 06:29
DX: R56.9 Unspecified convulsions (principal); Z86.79 Personal history of other diseases of the circulatory system; F17.210 Nicotine dependence, cigarettes, uncomplicated; I25.10 Atherosclerotic heart disease of native coronary artery without angina pectoris; I10 Essential (primary) hypertension; Z79.899 Other long term (current) drug therapy
CPT/HCPCS: 36415; 70450; 71045; 72170; 80053; 80177; 80320; 81003; 81015; 83605; 83735; 84484; 85025; 85610; 87086; 93005; 99283; A9270-GY; G0480

== ENCOUNTER 2020-07-30 13:32 | Inpatient (IN) ==
[2020-07-30] MEDS ORDERED: LORazepam 2 mg VIAL 1 ml IV PUSH ONE (14:48)
[2020-07-30] MEDS ORDERED: Lorazepam PYXIS KEY PRN (14:48)
[2020-07-30 15:05] LABS: Hematocrit 34 % (42-52); Hemoglobin 11.1 g/dL (14.0-18.0); Mean Corpuscular HGB Conc 32 g/dL (31-36); Mean Corpuscular Hemoglobin 26 pg (27-31); Mean Corpuscular Volume 82 fL (80-94); Mean Platelet Volume 7.9 fL (7.4-10.4); Platelet Count 333 10^3/uL (150-450); Red Blood Count 4.18 10^6 /uL (4.18-5.48); Red Cell Distribution Width 18 % (10-15)
[2020-07-30] MEDS ORDERED: LORazepam 2 mg VIAL 1 ml ONE (15:05)
[2020-07-30 15:11] LABS: Albumin 4.3 g/dL (3.2-5.2); Albumin/Globulin Ratio 0.9 (1-3); C Reactive Protein 9.93 mg/L (<8.01); Calcium 10.7 mg/dL (8.6-10.3); EGFR African American 105.8 (>60); EGFR Non-African American 87.5 (>60); Globulin 4.8 g/dL (2-4); Magnesium 2.2 mg/dL (1.9-2.7); Potassium 4.2 mmol/L (3.5-5.0); Total Bilirubin 0.4 mg/dL (0.2-1.0); Total Protein 9.1 g/dL (6.4-8.9)
[2020-07-30] MEDS ORDERED: NS 0.9% 1000 ml BAG 1,000 ML IV ONE (15:17)
[2020-07-30] MEDS: levETIRAcetam IV 1,500 MG in NS 0.9% 100 ml BAG 100 ML IVPB SCH (15:36)
[2020-07-30 15:52] LABS: ABS Neutrophils 8.9 10^3/ul (1.5-7.7)
[2020-07-30] MEDS ORDERED: Thiamine 100 MG/ML 2 ml VIAL (200 mg) IM ONE (17:52)
[2020-07-30 18:23] LABS: Urine Benzodiazepine Screen None Detected (None Detect); Urine Cannabinoids Screen None Detected (None Detect); Urine Opiates Screen None Detected (None Detect)
[2020-07-30] MEDS ORDERED: NS 0.9% 1000 ml BAG 1,000 ML IV SCH (18:30)
[2020-07-30] MEDS ORDERED: cloNIDine 0.2 MG PATCH 0.2 MG/24 HR 7 DAY PATCH TRANSDERM SCH (19:30)
[2020-07-30] MEDS ORDERED: levETIRAcetam LIQ 500 MG/5 ML UDC PO SCH (21:00)
[2020-07-30] MEDS: Enalaprilat IV 1.25 mg/ml 1 ml VIAL (1.25 MG) IV SCH (21:36)
[2020-07-30] MEDS: levETIRAcetam LIQ 500 MG/5 ML UDC PO SCH (21:38)
[2020-07-31] MEDS: Enalaprilat IV 1.25 mg/ml 1 ml VIAL (1.25 MG) IV SCH ×3 (02:18→12:56)
[2020-07-31] MEDS: levETIRAcetam IV 1,500 MG in NS 0.9% 100 ml BAG 100 ML IVPB SCH (03:32)
[2020-07-31] MEDS: levETIRAcetam LIQ 500 MG/5 ML UDC PO SCH ×2 (09:07→21:21)
[2020-07-31] MEDS: Multivitamins/Minerals TAB PO SCH (09:09)
[2020-08-01 06:45] LABS: ABS Basophils 0.1 10^3/ul (0-0.2); ABS Eosinophils 0.1 10^3/ul (0-0.6); ABS Lymphocytes 1.2 10^3/ul (1.0-4.8); ABS Monocytes 0.6 10^3/ul (0-0.8); ABS Neutrophils 3.2 10^3/ul (1.5-7.7); Eosinophil % 2.7 %; Hematocrit 30 % (42-52); Hemoglobin 9.5 g/dL (14.0-18.0); Lymphocyte % 23.6 %; Mean Corpuscular HGB Conc 32 g/dL (31-36); Mean Corpuscular Hemoglobin 26 pg (27-31); Mean Corpuscular Volume 82 fL (80-94); Platelet Count 220 10^3/uL (150-450); Red Blood Count 3.61 10^6 /uL (4.18-5.48); Red Cell Distribution Width 17 % (10-15); White Blood Count 5.3 10^3/uL (3.5-10.8)
[2020-08-01] MEDS: LORazepam 2 mg VIAL 1 ml IV PUSH SCH ×3 (07:14→18:57)
[2020-08-01 07:17] LABS: Calcium 9.6 mg/dL (8.6-10.3); EGFR African American 152.8 (>60); EGFR Non-African American 126.3 (>60); Potassium 3.3 mmol/L (3.5-5.0)
[2020-08-01] MEDS ORDERED: Potassium EFFERVES 25 meq TAB PO ONE (08:11)
[2020-08-01 08:35] LABS: Magnesium 1.9 mg/dL (1.9-2.7)
[2020-08-01] MEDS: levETIRAcetam LIQ 500 MG/5 ML UDC PO SCH ×2 (09:29→19:59)
[2020-08-01] MEDS: Multivitamins/Minerals TAB PO SCH (09:32)
[2020-08-01 23:25] LABS: Albumin 3.8 g/dL (3.4-4.7); Albumin/Globulin Ratio 0.75; Gamma Globulin 1.9 g/dL (0.6-1.6); Total Protein(PEP) 8.9 g/dL (6.3 - 7.9)
[2020-08-02] MEDS: LORazepam 2 mg VIAL 1 ml IV PUSH SCH (05:19)
[2020-08-02 07:00] LABS: Calcium 9.9 mg/dL (8.6-10.3); EGFR Non-African American 119.8 (>60); Potassium 3.2 mmol/L (3.5-5.0)
[2020-08-02] MEDS ORDERED: Potassium Chloride LIQUID 20 MEQ/15 ML LIQUID PO ONE (08:02)
[2020-08-02] MEDS: Multivitamins/Minerals TAB PO SCH (09:37)
[2020-08-02] MEDS: levETIRAcetam LIQ 500 MG/5 ML UDC PO SCH ×2 (09:38→21:33)
[2020-08-02] MEDS: Nicotine PATCH 14 MG/24 HR PATCH TRANSDERM SCH (22:32)
[2020-08-02] MEDS ORDERED: Lorazepam PYXIS KEY PRN (23:18)
[2020-08-02] MEDS ORDERED: LORazepam 2 mg VIAL 1 ml IV PUSH ONE (23:18)
[2020-08-03] MEDS: LORazepam 2 mg VIAL 1 ml IV PUSH SCH (01:59)
[2020-08-03] MEDS: levETIRAcetam LIQ 500 MG/5 ML UDC PO SCH ×2 (09:30→20:22)
[2020-08-03] MEDS: Multivitamins/Minerals TAB PO SCH (09:30)
[2020-08-03] MEDS: Nicotine PATCH 14 MG/24 HR PATCH TRANSDERM SCH (09:40)
[2020-08-03 10:57] LABS: Hematocrit 31 % (42-52); Hemoglobin 9.9 g/dL (14.0-18.0); Mean Corpuscular HGB Conc 32 g/dL (31-36); Mean Corpuscular Hemoglobin 26 pg (27-31); Mean Corpuscular Volume 81 fL (80-94); Red Blood Count 3.84 10^6 /uL (4.18-5.48)
[2020-08-03 11:05] LABS: % Iron Saturation 7 % (15-55); Anion Gap 7 mmol/L (2-11); Blood Urea Nitrogen 11 mg/dL (6-24); CO2 Carbon Dioxide 23 mmol/L (22-32); Calcium 10.3 mg/dL (8.6-10.3); Chloride 103 mmol/L (101-111); EGFR African American 167.9 (>60); EGFR Non-African American 138.7 (>60); Glucose 105 mg/dL (70-100); Iron 32 ug/dL (50-212); Magnesium 1.8 mg/dL (1.9-2.7); Potassium 3.4 mmol/L (3.5-5.0); Sodium 133 mmol/L (135-145); Total Iron Binding Capacity 455 mcg/dL (250-450); Transferrin 325 mg/dL (203-362); Unsaturated Iron Binding < 440 ug/dL
[2020-08-03 11:39] LABS: Mean Platelet Volume 8.5 fL (7.4-10.4); Platelet Count 284 10^3/uL (150-450); Red Cell Distribution Width 18 % (10-15); White Blood Count 6.5 10^3/uL (3.5-10.8)
[2020-08-03] MEDS ORDERED: Potassium Chloride LIQUID 20 MEQ/15 ML LIQUID PO ONE (15:48)
[2020-08-03] MEDS ORDERED: Magnesium Sulfate 2 gm BAG 2 GM/50 ML BAG IVPB ONE (15:49)
[2020-08-03] MEDS ORDERED: Iron Sucrose 200 MG in NS 0.9% 100 ml BAG 100 ML IVPB ONE (19:30)
[2020-08-04] MEDS: Multivitamins/Minerals TAB PO SCH (08:42)
[2020-08-04] MEDS: Nicotine PATCH 14 MG/24 HR PATCH TRANSDERM SCH (08:43)
[2020-08-04] MEDS: levETIRAcetam LIQ 500 MG/5 ML UDC PO SCH ×2 (08:43→20:21)
[2020-08-04 09:17] LABS: Calcium 9.9 mg/dL (8.6-10.3); EGFR African American 142.5 (>60); EGFR Non-African American 117.8 (>60); Potassium 4.5 mmol/L (3.5-5.0)
[2020-08-04 09:33] LABS: Hematocrit 33 % (42-52); Hemoglobin 10.9 g/dL (14.0-18.0)
[2020-08-04] MEDS: Enoxaparin 40 MG/0.4 ML SYR SUBCUT SCH (17:34)
[2020-08-05] MEDS: Nicotine PATCH 14 MG/24 HR PATCH TRANSDERM SCH (08:26)
[2020-08-05] MEDS: levETIRAcetam LIQ 500 MG/5 ML UDC PO SCH ×2 (08:26→20:26)
[2020-08-05] MEDS: Multivitamins/Minerals TAB PO SCH (08:26)
[2020-08-05] MEDS: Enoxaparin 40 MG/0.4 ML SYR SUBCUT SCH (08:27)
[2020-08-05 08:40] LABS: Calcium 10.4 mg/dL (8.6-10.3); EGFR African American 140.1 (>60); EGFR Non-African American 115.8 (>60); Potassium 3.7 mmol/L (3.5-5.0)
[2020-08-06] MEDS: levETIRAcetam LIQ 500 MG/5 ML UDC PO SCH ×2 (08:50→20:44)
[2020-08-06] MEDS: Enoxaparin 40 MG/0.4 ML SYR SUBCUT SCH (08:50)
[2020-08-06] MEDS: Multivitamins/Minerals TAB PO SCH (08:51)
[2020-08-06] MEDS: Nicotine PATCH 14 MG/24 HR PATCH TRANSDERM SCH (08:51)
[2020-08-07] MEDS: Enoxaparin 40 MG/0.4 ML SYR SUBCUT SCH (07:50)
[2020-08-07] MEDS: Multivitamins/Minerals TAB PO SCH (07:50)
[2020-08-07] MEDS: levETIRAcetam LIQ 500 MG/5 ML UDC PO SCH (07:50)
[2020-08-07] MEDS: Nicotine PATCH 14 MG/24 HR PATCH TRANSDERM SCH (07:51)
[2020-08-07 11:48] VITALS: BP 127/71
== END 2020-08-07 12:50 ==
LOC: ED 13:32 → MEDTELE 17:47
PROVIDERS: ADMIT Internal Medicine; ATTEND Internal Medicine